=== PATIENT | male | born 1950 | race Caucasian/White ===

== ENCOUNTER 2024-04-05 08:23 | Observation (INO) ==
--- NOTE | 2024-04-05 11:58 | History & Physical Bridge Note ---
Date of Service April 05, 2024 History & Physical Bridge Note I have examined the patient, reviewed the History & Physical and in the interval since the performance of the History & Physical I have noted the following changes of clinical significance: no changes noted
--- NOTE | 2024-04-05 11:58 | Pre Anesthesia Assessment ---
Date of Service April 05, 2024 Pre Sedation Assessment Vital Signs Pulse Resp BP Pulse Ox O2 Del Method 04/05/24 08:29 76 18 179/88 H 95 Room Air Cardiovascular + regular rate and + regular rhythm + S1 normal and + S2 normal; no murmur + femoral pulses present and + radial pulses present; no JVD and no carotid bruit no edema Respiratory + respiratory effort normal; no respiratory distress + crackles; no rhonchi and no wheezes Pre-Sedation Airway Assessment Smoking Status: Never smoker Short, Thick Neck: No Thyromental Distance: > or= 3.5 Finger Breadths Oral Cavity: + Dental Abnormalities Mallampati Class: III ASA: ASA3 NPO Status Date of Last Intake of Fluids: 04/04/24 Time of Last Intake of Fluids: 20:30 Date of Last Intake of Solid Food: 04/04/24 Time of Last Intake of Solid Foods: 20:30 Procedure Planning Contraindications for Sedation: none Current Medications Reviewed: Yes Notes The planned sedation has been discussed with the patient. Informed Consent was obtained. I have identified the patient, determined the appropriateness of sedation and have assessed the patient immediately prior to the procedure. All medicine(s) and interventions are by my order.
[2024-04-05 12:41] LABS: iSTAT Arterial Blood Gas HCO3 28 meg/L (19-24); iSTAT Arterial Blood Gas pCO2 53 mmHg (35-46); iSTAT Arterial Blood Gas pH 7.33 (7.35-7.45); iSTAT Arterial Blood Gas pO2 44 mmHg (80-95); iSTAT Carbon Dioxide 30 mmol/L (24-31); iSTAT Hematocrit 38 % (42-52); iSTAT Hemoglobin 12.9 g/dl (14.0-18.0); iSTAT Potassium 4.1 mmol/L (3.3-5.0); iSTAT Sodium 142 mmol/L (135-144)
[2024-04-05] MEDS: fentaNYL citrate PF 100 MCG/2 ML VIAL ONE (13:43)
[2024-04-05] MEDS: MIDAZOLAM HCL 1 MG/ML 2ML VIAL ONE ×3 (13:43→13:45)
[2024-04-05] MEDS: HEPARIN (PORCINE) 1000 UNIT/ML 10 ML (CATH LAB USE ONLY) ONE (13:43)
[2024-04-05] MEDS: IODIXANOL (VISIPAQUE) 320 MG/ML 100ML IV ONE (13:44)
[2024-04-05] MEDS: niCARdipine HCL INJ 2.5 MG/ML 10 ML AMP ONE (13:44)
[2024-04-05] MEDS: OPTIRAY 350 ONE (13:44)
[2024-04-05] MEDS: NITROGLYCERIN/D5W 100MCG/ML 20ML SYR ONE (13:45)
[2024-04-05] MEDS: LIDOCAINE 1% LOCAL 20 ML VIAL ONE (13:45)
[2024-04-05] MEDS: CLOPIDOGREL BISULFATE 300 MG TAB ONE (13:45)
[2024-04-05 14:01] LABS: iSTAT Arterial Blood Gas HCO3 27 meg/L (19-24); iSTAT Arterial Blood Gas pCO2 48 mmHg (35-46); iSTAT Arterial Blood Gas pH 7.35 (7.35-7.45); iSTAT Arterial Blood Gas pO2 146 mmHg (80-95); iSTAT Carbon Dioxide 28 mmol/L (24-31); iSTAT Hematocrit 38 % (42-52); iSTAT Hemoglobin 12.9 g/dl (14.0-18.0); iSTAT Potassium 4.1 mmol/L (3.3-5.0); iSTAT Sodium 141 mmol/L (135-144)
--- NOTE | 2024-04-05 14:01 | Post Anesthesia Assessment ---
Date of Service April 05, 2024 Post Sedation Assessment Vital Signs Pulse Resp BP Pulse Ox O2 Del Method 04/05/24 08:29 76 18 179/88 H 95 Room Air Recovery Score Activity: Moves 4 extremities Respiration: Deep Breath/Cough Circulation: +/-20% PreAnes Value Consciousness: Fully Awake Oxygen Saturation: O2 needed for >90% Discharge Sedation Level of Care: Fast Track Phase II Post Sedation Plan On clinical assessment, the patient appears to have tolerated the sedation without complications. Patient is recovering as anticipated. Patient will continue to be monitored by nursing and may be discharged when se dation discharge criteria are met per below protocol. Upon Completions of procedure up to 15 minutes continue every 5 minute vital signs and the P.A.R. score; then discharge to a Phase I or Fast Track to Phase II per the following guidelines: * Discharge Patient to appropriate Phase II area if PAR is 8 or greater or return to pre- procedure baseline. The post - procedure orders will be as directed. * If PAR score is less than 8 or not return to pre-procedure baseline then patient will follow Phase I monitoring till PAR is reached for Phase II. The Phase I may be done in procedure room or may call to secure a Phase I area. * If naloxone or flumazenil are used for reversal, hold in Phase I for continued monitoring from when last reversal dose was given for a minimum of 60 minutes or longer pending the nurse and/or physician discretion of patient condition before discharge to Phase II. Please call the Sedation Physician to re-evaluate and complete post-note for discharge to Phase II area. Do NOT discharge from procedure sedation or Phase 1 until post- sedation evaluation note is complete by procedure /sedation MD Sedation Discharge Instructions to be given to the patient at discharge to home.
[2024-04-05] MEDS ORDERED: ONDANSETRON INJ 2 MG/ML 2 ML VIAL IV PRN (14:14)
--- NOTE | 2024-04-05 14:18 | Cardiac Catheterization ---
Cardiac Cath Procedure Full Procedure Date April 05, 2024 Pre-Procedure Diagnosis Pre-Procedure Diagnosis: Angina and Positive Stress Test AUC Score AUC Score: 7 Post-Procedure Diagnosis Post-Procedure Diagnosis: Severe CAD and Normal Intracardiac Pressures Procedure(s) Performed Procedure(s) Performed: Coronary Angiography, Left Heart Cath and Right Heart Cath Inbound Call Center Representative Nolberto Monroe DO [facility]) Alondra RT Estimated Blood Loss Estimated Blood Loss: 8cc Medication(s) Medication(s): Fentanyl, Lidocaine 1% and Versed Summary of Findings Severe LAD disease with 75% proximal stenosis, 80% early mid stenosis, followed by and 90% mid stenosis. No evidence of pulmonary hypertension. PA Sat 75% AO Sat 99% QP/QS: 1.0 Hemodynamics Rest Ao:: 142/68/95 Final Ao: 128/67/88 LV: 141/1/10 RA: 3 mmHg RV: 26//-2/2 PA: 25/5/12 PW: 3 mmHg Recommendations Recommendations: PCI without planned CABG Specimens Specimens: None Radiation Exposure (mGy) 438 Contrast (mls) 70 Fluids (cc crystalloids) Fluids (cc crystalloids): 136 Nss Drains Drains: N/A Anesthesia Moderate sedation. Start 1204. And 1251. Sedation monitor: sAhley PICKERING Procedural Complication(s) None Disposition Patient remained in [facility] for PCI of the LAD. I attest to the content of the Intraoperative Record and any orders documented therein. Any exceptions are noted below. ACC Data: [facility] Cardiac Status Clinical evaluation leading to the procedure 73-year-old male with progressive dyspnea on exertion and decline in exercise tolerance. Abnormal exercise stress echo suggesting ischemia. CAD Presenation: Positive Stress Test and Stable angina Anginal Classification: CCS III Heart Failure: No Coronary Anatomy Dominant: Right Left Main (% Stenosis): Mid (Focal calcification with associated 20% stenosis.) LAD (% Stenosis): Proximal (75%) and Mid (80% followed by 90%) D1 (% Stenosis): Normal (1mm vessel) Circumflex (% Stenosis): Normal OM1 (% Stenosis): Mid (20%, large vessel) RCA (% Stenosis): Proximal (20%), Mid (Diffuse luminal irregularities,20%) and Distal (Luminal irregularities, 10%) R PDA (% Stenosis): Normal R PL1 (% Stenosis): Normal (Small vessel) R PL2 (% Stenosis): Normal (Small vessel) Diagnostic Physicians Name: Nolberto Monroe DO Closure Device Percutaneous Entry Location: Femoral (Arterial access, Brachial access utilized for venous sheath and right heart cath.) Closure Device: Angio-Seal Recommendations: PCI without planned CABG Intraprocedure Events Significant Disection: No Perforation: No
--- OUTSIDE RECORDS SUMMARY | 2024-04-05 14:38 | External Medical Summary ---
Author Name Unknown Address Unknown Organization [id number] [address] [place] [address] Laboratory Report Ordering Provider Test Date Status JOVANA ALMENDAREZ 03/31/2024 12:45:17 Final Anticoagulation may affect t esting. Refer to [facility] Test Catalog for a list of effects. Observation Date Value Abnormality Reference (Units ) Status aPTT panel - Platelet poor plasma 03/31/2024 12:45:17 31 21-38 (seconds) Final Performing Location [facility] [place] [address] [place] [address]
--- OUTSIDE RECORDS SUMMARY | 2024-04-05 14:38 | External Medical Summary | Summary of Care ---
Author Name Unknown Organization [facility] Address [address] [place] [facility] [place] [address] Phone [phone] Care Team Providers Care Upper Extremity Surgeon Name Role Phone Sakina Lares DO Primary Care Provider [phone] Reason for Visit * Reason Onset Date Comments Test Results 03/30/2024 Encounter Details Date Type Department Care Team (Late st Contact Info) Description 03/30/2024 Telephone Cardiology, [facility] [address] [place] [address] Virgil Mixon PA-C [address] [place] [address] Test Results Allergies No known active allergiesdocumented as of this encounter (statuses as of 03/30/2024) Medications Medication Sig Dispensed Refills Start Date End Date Status Melatonin 5 MG Oral Tablet Take 1 Tablet by mouth at bedtime. Active Aspirin 81 MG Oral Tablet Delayed Release Take 1 Tablet by mouth in the morning. 03/04/2023 Active Tylenol PM Extra Strength 500-25 MG Oral Tablet (diphenhydrAMINE-A PAP (sleep)) Take 1 Tablet by mouth at bedtime. Active Tamsulosin HCl 0.4 MG Oral Capsule (Flomax) Take 1 Capsule by mouth in the morning. 100 Capsule 3 05/11/2023 Active Additional Information Patient taking differently:0.4 mg [id number], Reported on 07/08/2023 Sertraline HCl 50 MG Oral Tablet (Zoloft) TAKE ONE TABLET BY MOUTH EVERY MORNING 100 Tablet 3 05/12/2023 06/18/2024 Active hydrOXYzine Pamoate 50 MG Oral Capsule (Vistaril) Take 1 Capsule by mouth at bedtime as needed for Anxiety or Other (sleep). 30 Capsule 3 07/08/2023 Active Omeprazole 20 MG Oral Capsule Delayed Release (PriLOSEC)Indicati ons:Gastroesophage al reflux disease without esophagitis Take 1 Capsule by mouth in the morning. 1 hour before the first meal of the day. 08/05/2023 Active Rosuvastatin Calcium 40 MG Oral Tablet (Crestor) Take 1 Tablet by mouth in the morning. 90 Tablet 3 08/04/2023 Active Ezetimibe 10 MG Oral Tablet (Zetia) Take 1 Tablet by mouth daily. 100 Tablet 3 11/09/2023 Active Additional Information Patient taking differently:10 mg Oral Daily(Non-Specified),Takes in the evening., Reported on 02/29/2024 documented as of this encounter (statuses as of 03/30/2024) Active Problems Problem Noted Date Diagnosed Date Coronary artery calcification seen on CT scan SVT (supraventricular tachycardia) 10/28/2023 Chronic kidney disease, stage 3a 03/23/2023 Overview: Per CKD protocol Hx of nonmelanoma skin cancer 12/11/2022 Overview: squamous cell carcinoma (R medial trapezial neck 08/03), basal cell carcinoma (L upper cheek 05/28) H/O actinic keratosis 12/11/2022 Overview: actinic keratoses (Efudex-multiple courses, scalp/face/neck 01/02, left arm 08/05, right arm 10/03) Gastroesophageal reflux disease without esophagi tis 10/07/2022 Dyslipidemia 04/08/2022 BPH with obstruction/lower urinary tract symptom s 04/08/2022 Insomnia 04/08/2022 documented as of this encounter (statuses as of 03/30/2024) Resolved Problems Problem Noted Date Diagnosed Date Resolved Date Stage 3 chronic kidney disease 07/08/2023 07/23/2023 documented as of this encounter (statuses as of 03/30/2024) Immunizations Name Administration Dates Next Due COVID-19 mRNA, LNP-s, No Pre serve, 2-Dose Series (Moderna) 08/28/2020,07/31/2020 COVID-19, MRNA-LNP, 23-24, P F, 30 MCG/0.3 mL, 12 YRS AND ABOVE, IM (Written) 05/04/2023 COVID-19, MRNA-LNP, 24-25, P R, 30MCG/0.3ML, IM, 12YRS AND ABOVE ([employer]) 03/24/2024 COVID-19, mRNA, LNP-s, PF, B ooster, 100mcg/0.5mg (Moderna) 10/22/2021,05/26/2021 Covid-19, Mrna, Lnp-s, Pf, B ivalent, 30 Mcg, IM, 12 yrs and above (imgfave) 04/22/2022 HEP A - Hepatitis A (Adult > 18 yrs) 09/07/2008, 01/05/2008 Hepatitis B, 20+ yrs 01/05/2008,09/09/2007 Pneumococcal Conjugate Vacc, 13 Valent (Prevnar) 04/09/2016 Pneumococcal Conjugate Vaccine, 20-valent (Prevn ar20) 03/24/2024 Pneumococcal Polysaccharide PPV23 (Pneumovax) RSV Vac., Bivalent, Perfusion F, Pf,0.5 Ml (Abry svo) 02/29/2024 Season Influenza, Quad, PF, Adjuvanted, 65+ Yrs, IM (FLUAD) 05/30/2021,03/30/2020 Seasonal Influenza Virus Vac cine, Unspecified Formulation 04/07/2022 Seasonal Influenza, High Dos e, Trivalent, PF, IM (Fluzone HD) 03/24/2024 Seasonal Influenza, Quadrivalent Hd (Fluzone Hd) 03/13/2023,04/07/2022 Seasonal Influenza, Quadrivalent, No Preserve, I M 04/08/2018,04/20/2017 Seasonal Influenza, Quadriva lent,with Preserve, 3 yr & above, IM 04/09/2016 TDAP (age 10 and older)(Boostrix) 04/09/2016 TDAP, Age 7 and older, IM (Adacel) 02/07/2024 documented as of this encounter Social History Tobacco Use Types Packs/Day Years Used Date Smoking Tobacco: Never Passive Smoke Exposure: Past Smokeless Tobacco: Never Comments:Mother smoked in ho me growing up Alcohol Use Standard Drinks/Week Comments Yes 0 (1 standard drink = 0.6 oz pur e alcohol) 3 or 4 glasses of wine weekly PHQ-2 Answer Date Recorded PHQ Adult Total Score 0 08/04/2023 Hunger Vital Sign Answer Date Recorded Within the past 12 months, y ou worried that your food would run out before you got the money to buy more. Never true 08/04/19 24 Within the past 12 months, t he food you bought just didn't last and you didn't have money to get more. Never true 08/04/2023 Childcare Answer Date Recorded Do you feel overwhelmed with taking care of a child, family member or friend? No 08/04/2023 Does your family need help f inding childcare? (Household - for ages 0-17 years) Not on file 08/04/2023 Clothing Answer Date Recorded Have you been unable to get clothing when it was really needed? No 08/04/2023 Is your family able to get c lothes or diapers when needed? (Household - for ages 0-17 years) Not on file 08/04/2023 Personal Safety Answer Date Recorded Do you feel unsafe or have concerns for your saf ety? No 08/04/2023 Do you have concerns for you r family's safety? (Household - for ages 0-17 years) Not on file 08/04/2023 Utilities Answer Date Recorded Do you have trouble paying y our heating, water, or electric bill? No 08/04/2023 Is your family able to pay t he heat, water, or electric bill? (Household - for ages 0-17 years) Not on file 08/04/2023 Does your family have access to good internet? (Household - for ages 0-17 years) Not on file 08/04/2023 Employment Status Answer Date Recorded Are you unemployed or without regular income? No 08/04/2023 Does the household have a re gular source of income? (Household - for ages 0-17 years) Not on file 08/04/2023 Social Connections Answer Date Recorded How often do you feel lonely or isolated from th ose around you? Never 08/04/2023 Financial Resource Strain Answer Date R ecorded Do you have any trouble payi ng for your medications, or do you think you might in the future? No 08/04/2023 Does your family have troubl e paying for medicine? (Household - for ages 0-17 years) Not on file 08/04/2023 Transportation Needs Answer Date Record ed READ ONLY Do you have troubl e getting a ride to medical visits or work? Never True 08/04/2023 Does your family have a hard time getting a ride to doctors visits? (Household - for ages 0-17 years) Not on file 08/04/2023 Has lack of transportation k ept you from medical appointments, meetings, work, or from getting things needed for daily living? Check all that apply. (Adult - for ages 18 years and over) Not on file 08/04/2023 Do you (or your family) have trouble finding or paying for a ride (transportation)? (Household - for ages 0-17 years) Not on file 08/04/2023 Housing Stability Answer Date Recorded Do you currently live in a s helter or have no steady place to sleep at night? No 08/04/2023 READ ONLY Do you think you a re at risk of becoming homeless? No 08/04/2023 Does your family worry about paying for your home or becoming homeless? (Household - for ages 0-17 years) Not on file 0 08/04/2023 Are you homeless or worried that you might be in the future? (Adult - for ages 18 years and over) Not on file Are you (or your family) carisa eless or worried that you might be in the future? (Household - for ages 0-17 years) Not on file Food Insecurity Answer Date Recorded Do you need food for this week? No 08/04/2023 Are you able to get enough f ood for your family? (Household - for ages 0-17 years) Not on file 08/04/2023 Does your family need food t his week? (Household - for ages 0-17 years) Not on file 08/04/2023 Do you always have enough fo od for your family? (Household - for ages 0-17 years) Not on file 08/04/2023 Sex and Gender Information Value Date Recorded Sex Assigned at Male 04/07/2022 8:11 AM EDT Gender Identity Male 04/07/2022 8:11 AM EDT Sexual Orientation Straight 04/07/2022 8: 11 AM EDT Job Start Date Occupation Industry Not on file Not on file Not on file documented as of this encounter Miscellaneous Notes * Telephone Encounter - Ej Al LPN - 03/30/2024 11:23 AM EDT Please see patient's MyChart reply. * Telephone Encounter - Ej Al LPN - 03/30/2024 9:47 AM EDT Sent patient a [employer] message to make aware. Lab ordered. ----- Message from Virgil Mixon sent at 03/28/2024 8:36 PM EDT ----- aPTT is prolonged. Not on anticoagulation. All other testing is OK/stable. Any bruising, abnormal bleeding, or blood clot history? Repeat aPTT. If repeat testing is abnormal will need further evaluation CC: PCP documented in this encounter Plan of Treatment Upcoming Encounters Date Type Department Care Team (Late st Contact Info) Description 03/31/2024 11:30 AM EDT Office Visit Cardiology, [facility] [address] [address] Virgil Mixon PA-C [address] [place] [address] 04/06/2024 8:00 AM EDT Office Visit Urology, [facility] [address] [address] Se Alatorre MD [address] [place] [address] 04/07/2024 8:00 AM EDT [facility] [address] [place] [phone] Chuy Arteaga MD [address] [place] [address] 04/14/2024 8:00 AM EDT [facility] [address] [place] [phone] Chuy Arteaga MD [address] [place] [address] 04/29/2024 9:00 AM EDT Office Visit Cardiology, [facility] [address] [facility] [place] [address] Virgil Mixon PA-C [address] [place] [address] 06/15/2024 2:40 PM EST Office Visit Gastroenterology, [address] [phone] Oscar [facility] [address] 07/26/2024 8:40 AM EST Office Visit Family Practice [address] [place] [address] 293 [place] [address] Sakina Lares DO 293 [place] [address] 08/05/2024 10:00 AM EST Nurse Only Ancillary [address] [facility] [address] [place] [address] College, Nurse Annual Wellness Visit [address] [place] [address], [place] [address] 09/21/2024 7:40 AM EDT Office Visit Dermatology [facility] [address] [place] [address] Jez Pretty PA-C [address] [place] [address] Scheduled Orders Name Type Priority Associated Diagnoses Orde r Schedule APTT Lab Routine Prothrombin time monitoring Expected: 03/30/2024 (Approximate), Expires: 03/30/2025 Health Maintenance Due Date Last Done Comments Hepatitis C Screening 1968 Hepatitis B Vaccine (3 of 3 - 19+ 3-dose series) 03/09/2008 01/05/2008, 09/09/2007 Albumin/Creatinine Ratio 07/08/2024 07/08/2023 CKD PHOS USE SMARTSET 56639 07/24/2024 07/24/2023 Adult Wellness Visit 08/04/2024 08/04/2023 Depression Screening 08/04/2024 08/04/2023 GFR 09/25/2024 03/28/2024, 04/2 10/2023, 07/24/2023, Additional history exists CKD HGB USE SMARTSET 98601 03/28/202503/28, 03/28/2024, 07/24/2023, Additional history exists DTap/Tdap Vaccines (3 - Td or Tdap) 02/06/2034 02/07/2024, 04/09/2016 Colonoscopy Discontinued 12/03/2016 Colorectal Cancer Screening Discontinued COVID-19 Vaccine Completed 03/24/2024, , 04/22/2022, Additional history exists Influenza Vaccine (FLU shot) Completed 03/24/2024, 03/13/2023, 04/07/2022, Additional history exists Pneumococcal Vaccine: 65+ Years Completed 03/24/2024, 04/08/2018, 04/09/2016 Cologuard Discontinued Fecal Occult Blood Test Discontinued HPV (Gardasil) Vaccine Aged Out No lo nger eligible based on patient's age to complete this topic MENINGOCOCCAL (MENACTRA/MENVEO) Aged Out No longer eligible based on patient's age to complete this topic Sigmoidoscopy Discontinued Zoster Vaccines Discontinued documented as of this encounter Medical Devices Not on filedocumented as of this encounter Visit Diagnoses Diagnosis Prothrombin time monitoring- Primary Long-term (current) use of anticoagulants documented in this encounter Care Teams Upper Extremity Surgeon Relationship Specialty Start Date End Date Sakina Lares DO [address] [facility] [place] [address] PCP - General Family Medicine 02/26/24 documented as of this encounter
--- OUTSIDE RECORDS SUMMARY | 2024-04-05 14:38 | External Medical Summary | Summary of Care ---
Author Name Unknown Organization [facility] Address [address] [place] [address] Phone [phone] Care Team Providers Care Collection Agent Name Role Phone NataliMirella fritzbirdie Valdes DO Primary Care Provider [phone] Reason for Visit * Reason Comments Outpatient Testing Encounter Details Date Type Department Care Team (Late st Contact Info) Description 03/31/2024 12:50 PM EDT Laboratory Laboratory, [facility] [address] [place] [phone] [facility] [address] [place] [address] Prothrombin time monitoring Allergies No known active allergiesdocumented as of this encounter (statuses as of 03/31/2024) Medications Medication Sig Dispensed Refills Start Date [...] Active Additional Information Patient taking differently:0.4 mg [id number], Reported on 07/08/2023 Sertraline HCl 50 MG [...] as of this encounter (statuses as of 03/31/2024) Active Problems Problem Noted Date Diagnosed Date [...] as of this encounter (statuses as of 03/31/2024) Resolved Problems Problem Noted Date Diagnosed Date Resolved Date Stage 3 chronic kidney disease 07/08/2023 07/23/2023 documented as of this encounter (statuses as of 03/31/2024) Immunizations Name Administration Dates Next Due COVID-19 mRNA, LNP-s, No Pre serve, 2-Dose Series (Moderna) 08/28/2020,07/31/2020 COVID-19, MRNA-LNP, 23-24, P F, 30 MCG/0.3 mL, 12 YRS AND ABOVE, IM ([facility]) 05/04/2023 COVID-19, MRNA-LNP, 24-25, P R, 30MCG/0.3ML, IM, 12YRS AND ABOVE ([employer]) 03/24/2024 COVID-19, mRNA, LNP-s, PF, B ooster, 100mcg/0.5mg (Moderna) 10/22/2021,05/26/2021 Covid-19, Mrna, Lnp-s, Pf, B ivalent, 30 Mcg, IM, 12 yrs and above (Pfizer) 04/22/2022 HEP A - Hepatitis A (Adult [...] on file documented as of this encounter Plan of Treatment Upcoming Encounters Date Type Department Care Team (Late st Contact Info) Description 04/06/2024 8:00 AM EDT Office Visit [facility] [place] [address] Se Alatorre MD [address] [place], [place] [phone] 04/07/2024 8:00 AM EDT Office Visit Orthopaedics [address] [phone] Chuy Arteaga MD 16 [place] [address] 04/14/2024 8:00 AM EDT [facility] [address] [place] [address] Chuy Arteaga MD 16 [place] [address] 04/29/2024 9:00 AM EDT Office Visit Cardiology, [facility] [address] [place] [address] Virgil Mixon PA-C 132 [facility] [place] [address] 06/15/2024 2:40 PM EST Office Visit Gastroenterology, [address] [phone] Oscar Shannon MD 132 [facility] [place] [address] 07/26/2024 8:40 AM EST Office Visit Family Practice [facility] 293 [place] [address] Sakina Lares, DO 293 [place] [address] 08/05/2024 10:00 AM EST Nurse Only Ancillary [facility] 293 [place] [address] College, Nurse Annual Wellness Visit [address] [address] 09/21/2024 7:40 AM EDT Office Visit Dermatology [facility] [address] [place] [phone] Jez Pretty PA-C [address] [place] [address] Pending Results Name Type Priority Associated Diagnoses Date /Time APTT Lab Routine Prothrombin time monitoring 03/31/2024 12:45 PM EDT Health Maintenance Due Date Last Done Comments Hepatitis C Screening 1968 Hepatitis B Vaccine (3 of 3 - 19+ 3-dose series) 03/09/2008 01/05/2008, 09/09/2007 Albumin/Creatinine Ratio 07/08/2024 07/08/2023 CKD PHOS USE SMARTSET [id number] 07/24/2024 07/24/2023 Adult Wellness Visit 08/04/2024 08/04/2023 Depression Screening 08/04/2024 08/04/2023 GFR 09/25/2024 03/28/2024, 04/2 10/2023, 07/24/2023, Additional history exists CKD HGB USE SMARTSET 32213 03/28/202503/28, 03/28/2024, 07/24/2023, Additional history exists DTap/Tdap [...] this encounter Visit Diagnoses Diagnosis Prothrombin time monitoring Long-term (current) use of anticoagulants documented in this encounter Care Teams Collection Agent Relationship Specialty Start Date End Date Sakina Lares DO [address] [place] [address] PCP - General Family Medicine 02/26/24 documented as of this encounter
--- OUTSIDE RECORDS SUMMARY | 2024-04-05 14:38 | External Medical Summary | Summary of Care ---
Author Name Unknown Organization [facility] Address [address] [facility] [place] [address] Phone [phone] Care Team Providers Care Hammer Operator Name Role Phone Sakina Lares DO Primary Care Provider + [phone] Reason for Visit * Reason Comments Follow Up Encounter Details Date Type Department Care Team (Latest Contact Info) Description 03/31/2024 11:30 AM EDT Office Visit Cardiology, [facility] [address] [place] [address] Virgil Mixon PA-C [address] [place] [address] Abnormal stress test*; Abnormal partial thromboplastin time (PTT); Dyspnea on exertion; Exercise intolerance; Dyslipidemia, goal LDL below 70; Abnormal LFTs; SVT (supraventricular tachycardia) (HCC); Coronary artery calcification seen on CT scan; Family history of ischemic heart disease Allergies No known active allergiesdocumented as of [...] Active Additional Information Patient taking differently:0.4 mg [id number], Reported on 07/08/2023 Sertraline HCl 50 MG [...] MCG/0.3 mL, 12 YRS AND ABOVE, IM ([employer]) 05/04/2023 COVID-19, MRNA-LNP, 24-25, P R, 30MCG/0.3ML, IM, 12YRS AND ABOVE (6sic[employer].itirCooliris) 03/24/2024 COVID-19, mRNA, LNP-s, PF, B ooster, 100mcg/0.5mg (Moderna) 10/22/2021,05/26/2021 Covid-19, Mrna, Lnp-s, Pf, B ivalent, 30 Mcg, IM, 12 yrs and above ([employer]) 04/22/2022 HEP A - Hepatitis A (Adult [...] Passive Smoke Exposure: Past Smokeless Tobacco: Never Tobacco Cessation:Counseling Given: Not Answered Comments:Mother smoked in home growing up Alcohol Use Standard Drinks/Week Comments [...] on file documented as of this encounter Last Filed Vital Signs Vital Sign Reading Time Taken Comments Blood Pressure 118/68 03/31/2024 11:39 AM EDT Pulse 74 03/31/2024 11:39 AM EDT Temperature - - Respiratory Rate - - Oxygen Saturation 91% 03/31/2024 11:39 AM EDT Inhaled Oxygen Concentration - - Weight 78.9 kg (174 lb) 03/31/2024 11:39 AM EDT Height - - Body Mass Index 25.33 02/29/2024 9:16 AM EDT documented in this encounter Progress Notes * Virgil Mixon PA-C - 03/31/2024 11:47 AM EDT History of Present Illness: Robert Love is a very pleasant 73-year-old male who presents today for Cardiology evaluation. Patient initially evaluated in this office by Ms. Stratton in February 2023 due to concerns regarding hypoxia and dizziness. Patient evaluated at [facility] in [place] on 02/25/2023 due to concerns of hypoxia and dizziness after riding his bike downhill. O2 checked by skiver machine - 84%. Heart rate elevated. Symptoms quickly resolved in a matter of seconds, spontaneously. Zio monitor obtained afterwards revealed sinus as the predominant rhythm with an average heart rate of 71 bpm. 14 episodes of SVT were observed, asymptomatic. No atrial fibrillation, ventricular arrhythmias, high-degree heart block, or pauses observed. He did not experienced anything like when he did in [place] while weari ng the Zio monitor In October 2023 the patient began to noticed worsening shortness of breath with activity, gradual reduction in exercise tolerance and overall functional status. He describes more episodes of dizziness with random movement primarily occurring with positional change. He notes no activity related chest pain or discomfort. No tachypalpitations. No resting or nocturnal dyspnea. No orthopnea or PND. No lower extremity peripheral edema. No syncope. No melena or hematochezia. Donates blood. In February 2024 the patient underwent exercise stress echocardiography to evaluate exertional dyspnea. Prior imaging of the chest notable for extensive coronary artery calcifications. Patient also hasa history of dyslipidemia, past secondhand smoke exposure, and a family history of ischemic heart disease. Stress testing was interpreted by Dr. Johnson as being borderline positive for inducible ischemia at an average exercise capacity. There was mild hypokinesis of the apical septum and inferior wall induced by exercise in comparison to other segments which were hyperdynamic. Heart rate response to stress was normal. Blood pressure was hypertensive. Resting echocardiography revealed preserved LV systolic function, EF 55 to 59%. Grade 1 diastolic dysfunction observed. Laboratory work in February 2024 demonstrated mildly abnormal LFTs following the addition of ezetimibe. Right upper quadrant ultrasound revealed an abnormally distended common duct for which the patient was referred to GI, consideration for MRCP Problem List Extensive calcified coronary arteries via March 05, [address] Asymptomatic SVT PVCs Dyslipidemia Secondhand smoke exposure Family history of ischemic heart disease Stage III chronic kidney disease GERD BPH Patient Active Problem List Diagnosis Dyslipidemia BPH with obstruction/lower urinary tract symptoms Insomnia Gastroesophageal reflux disease without esophagitis Hx of nonmelanoma skin cancer H/O actinic keratosis Chronic kidney disease, stage 3a (HCC) Coronary artery calcification seen on CT scan SVT (supraventricular tachycardia) (HCC) Past Medical History: Diagnosis Date BPH (benign prostatic hyperplasia) Hyperlipidemia Insomnia Lyme disease Shoulder arthritis bilaterally SVT (supraventricular tachycardia) (HCC) Past Surgical History: Procedure Laterality Date EGD, FLEXIBLE, DIAGNOSTIC 11/10/2022 acid reflux on bx / ESOPHAGOGASTRODUODENOSCOPY (EGD), FLEXIBLE, TRANSORAL, DIAGNOSTIC performed by Oscar Shannon MD at [facility], TREAT ANKLE JOINT Left repair of fracture KNEE ARTHROSCOPY/ARTHROPLASTY Right LAP;REPAIR RECURRENT HERNIA two OTHER Bilateral eye surgery on muscles bilaterally WRIST ARTHROSCOPY/SURGERY Right Family History Problem Relation Name Age of Onset Cancer Mother 78 Lung Other (Other) Father Alcoholism Heart attack Father 80 Parkinsonism Brother Family History coronary artery disease, father at age 80 , uncle in 50s, 1 uncle in the 70s. Sibling from Parkinson's at age 71. Mother had lung cancer and at age 78. Social History: Never smoker though exposed to secondhand smoke. No smokeless tobacco. Social alcohol. No illegal/illicit drug use. . Complete Review of Systems is as stated above, negative, or noncontributory. Review of patient's allergies indicates: No Known Allergies Current Outpatient Medications Medication Sig Dispense Refill Melatonin 5 MG Oral Tablet Take 1 Tablet by mouth at bedtime. Aspirin 81 MG Oral Tablet Delayed Release Take 1 Tablet by mouth in the morning. Tylenol PM Extra Strength 500-25 MG Oral Tablet (diphenhydrAMINE-APAP (sleep)) Take 1 Tablet by mouth at bedtime. Tamsulosin HCl 0.4 MG Oral Capsule (Flomax) Take 1 Capsule by mouth in the morning. (Patient takingdifferently: Take 1 Capsule by mouth every evening.) 100 Capsule 3 Sertraline HCl 50 MG Oral Tablet (Zoloft) TAKE ONE TABLET BY MOUTH EVERY MORNING 100 Tablet 3 hydrOXYzine Pamoate 50 MG Oral Capsule (Vistaril) Take 1 Capsule by mouth at bedtime as needed for Anxiety or Other (sleep). 30 Capsule 3 Omeprazole 20 MG Oral Capsule Delayed Release (PriLOSEC) Take 1 Capsule by mouth in the morning. 1 hour before the first meal of the day. Rosuvastatin Calcium 40 MG Oral Tablet (Crestor) Take 1 Tablet by mouth in the morning. 90 Tablet 3 Ezetimibe 10 MG Oral Tablet (Zetia) Take 1 Tablet by mouth daily. (Patient taking differently: Take1 Tablet by mouth daily. Takes in the evening.) 100 Tablet 3 No current facility-administered medications for this visit. PHYSICAL EXAMINATION: BP 118/68 | Pulse 74 | Wt 78.9 kg (174 lb) | SpO2 91% | BMI 25.33 kg/m | BSA 1.97 m General: Alert and oriented x3. Pleasant. Comfortable. Cooperative. Occasional clearing of the throat noted. Skin: No rash Eyes: PER. Conjunctiva pink, sclera clear. HENT: Normocephalic. Atraumatic. Neck: No carotid bruits. No JVD. No HJR. Heart: RRR. No murmur. No rub. No gallop. PMI is nondisplaced. Lungs: Decreased/diminished, more so at the right base. There are Velcro type crackles at the bases, right greater than left. No wheeze. Abdomen: +BS. Soft. Nontender. No masses. No organomegaly. Extremities: No clubbing, cyanosis, or edema. Pulses: radial=2/4, posterior tibial=2/4. Limited neurological examination: No focal deficit. Data: March 05, [address]: Bibasilar atelectasis/fibrosis. March 11, 2023 ALEXANDRA Interpretation Summary (as per Dr. Guan): The stress echo is negative for inducible ischemia. Adequate cardiovascular stress test as patient obtained 105 percent of their age predicted maximal target heart rate. Patient exercised for 10 minutes of the [place] protocol with a functional capacity of 9.0 Mets. No significant arrhythmias were noted. Normal blood pressure and heart rate response to exercise. Patient denied chest discomfort reporting dyspnea at peak exercise.The qualitative LV ejection fraction is 55- 59% (normal). The LV wall thickness is normal. There is no significant aortic regurgitation. No pericardial effusion is noted. Zio monitor obtained in [place] revealed sinus as the predominant rhythm with an average heart rate of 71 bpm. 14 episodes of SVT were observed with the longest lasting ? 13 seconds in duration, not associated with symptoms. No atrial fibrillation, ventricular arrhythmias, high-degree heart block, orpauses observed. March 01, 2024 ALEXANDRA Interpretation Summary (as per Dr. Johnson): The stress echo is borderline positive for inducible ischemia. Exercise capacity is average. Heart rate response to stress was normal. Blood pressure response to exercise was hypertensive. The stress EKG response showed no evidence of ischemia. The left ventricular wall motion is normal. There is mild hypokinesis of the apical septum and inferior wall induced by exercise in comparison to other segments all of which were hyperdynamic. The left ventricular ejection fraction increases normally with stress. Recommend clinical correlation. The left ventricular systolic function is normal. The LV wall thickness is mildly increased (con centric). The qualitative LV ejection fraction is 55-59% (normal). The left ventricular diastolic function is mildly abnormal (grade I). March 31, 2024 EKG: Normal sinus rhythm at 66 bpm. QTc 404 ms. Component 03/28/2024 WBC 4.96 Neutrophils % 66.6 Lymphocytes % 18.3 Monocytes % 8.7 Eosinophils % 5.4 Basophils % 0.8 Immature Granulocytes % 0.2 Absolute Neutrophils 3.30 Absolute Lymphocytes 0.91 (L) Absolute Monocytes 0.43 Absolute Eosinophils 0.27 Absolute Basophils 0.04 Absolute Immature Granulocytes 0.01 WBC 4.96 RBC 4.59 HGB 13.7 (L) HCT 42.9 MCV 93.5 MCH 29.8 MCHC 31.9 RDW 14.7 PLT 145 MPV 11.3 nRBCs 0 BUN 21 (H) CREATININE 1.3 (H) EGFR 59 (L) SODIUM 141 POTASSIUM 4.7 CHLORIDE 106 CO2 16 (L) ANION GAP 19 (H) GLUCOSE 89 CALCIUM 9.1 Prothrombin Time 13.1 INR 1.0 aPTT 70 (H) ASSESSMENT: Progressive exertional dyspnea and reduced exercise tolerance complaints as detailed above Borderline abnormal exercise stress testing in February 2024 Extensive calcified coronary arteries via March 05, [address] Dyslipidemia Family history of ischemic heart disease Past secondhand smoke exposure Asymptomatic SVT PVCs Stage III chronic kidney disease Mildly abnormal LFTs following the addition of ezetimibe. Right upper quadrant ultrasound with an abnormally distended common duct, GI evaluation pending Prolonged aPTT, unclear etiology RECOMMENDATIONS/PLAN: Options of management discussed with patient and significant other who was present for the entire evaluation. The risks (bleeding, infection, radiation exposure, renal dysfunction, atheroembolism, allergic reactions including anaphylaxis, perforation of the heart or great vessels, arrhythmias, conduction disturbances, local vascular complications, cerebrovascular accident, [place], or ) as well as the benefits and possible outcomes of diagnostic cardiac catheterization were explained. Chest x-ray requested today. Repeat aPTT requested. Procedure scheduled with Dr. Monroe at [facility] on April 05, 2024. Continue aspirin, statin, and ezetimibe. Antianginal medication offered and declined. Further recommendations to come Virgil Mixon PA-C Department of Cardiology I spent a total of 40-54 minutes (exact time 45 mins) on the date of service in preparation, delivery, and documentation of the care provided to Robert Love excluding any time spent in the performance of separately billed services. This visit involved medical care services related to at least one serious condition or complex condition requiring ongoing care. This chart was completed in part utilizing [employer] Speech Voice Recognition Software. Grammatical errors, random word insertions, prounoun errors, and incomplete sentences are an occasional consequence of this system due to software limitations, ambient noise, and hardware issues. Any formal questions or concerns about the content, text, or information contained within the body of this dictation should be directly addressed to the provider for clarification. documented in this encounter Nursing Notes * Suzy Barragan CMA - 03/31/2024 11:38 AM EDT Examination Room: 2 Name: Robert Love Date of : (1950) Reason for Visit: discuss cath Interim Hospitalization(s): none Problems/Concerns: denied Chest Pain/SOB: denied chest pain, does have SOB with exercise [facility] is a way you can talk to your provider online through e-mail. Would you like to sign up? I can activate it for you? ALREADY ACTIVE Patient was instructed to not get up on the exam table until directed and assisted by their provider; patient is to remain seated in the chair/ wheelchair/ exam table for fall prevention and safety reasons. Patient is aware to have assistance to step down off exam table with personnel. Patient voiced full comprehension of instructions. documented in this encounter Plan of Treatment Upcoming Encounters Date Type Department Care Team (Late st Contact Info) Description 04/06/2024 8:00 AM EDT Office Visit Urology, [facility] [address] [facility] [place] [address] Se Alatorre MD [address] [place] [address] 04/07/2024 8:00 AM EDT Office Visit Orthopaedic [facility] [address] [place] [phone] Chuy Arteaga MD [address] [facility] [place] [address] 04/14/2024 8:00 AM EDT Office Visit Orthopaedic [facility] [address] 16 [place] [address] Chuy Arteaga MD 16 [place] [address] 04/29/2024 9:00 AM EDT Office Visit Cardiology, [facility] [address] [facility] [place] [address] Virgil Mixon PA-C [address] [place] [address] 06/15/2024 2:40 PM EST Office Visit Gastroenterology, [address] [phone] Oscar Shannon MD 132 [place] [address] 07/26/2024 8:40 AM EST Office Visit Family Practice [address] [place] [address] [address] [place] [address] Sakina Lares, [address] [place] [address] 08/05/2024 10:00 AM EST Nurse Only Ancillary [address] [place] [address] College, Nurse Annual Wellness Visit [address] [address] 09/21/2024 7:40 AM EDT Office Visit Dermatology [facility] [address] [place] [phone] Jez Pretty PA-C [address] [place] [address] Health Maintenance Due Date Last Done Comments Hepatitis C Screening 1968 Hepatitis B Vaccine (3 of 3 - 19+ 3-dose series) 03/09/2008 01/05/2008, 09/09/2007 Albumin/Creatinine Ratio 07/08/2024 07/08/2023 CKD PHOS USE SMARTSET 20283 07/24/2024 07/24/2023 Adult Wellness Visit 08/04/2024 08/04/2023 Depression Screening 08/04/2024 08/04/2023 GFR 09/25/2024 03/28/2024, 04/2 10/2023, 07/24/2023, Additional history exists CKD HGB USE SMARTSET 46074 03/28/202503/28, 03/28/2024, 07/24/2023, Additional history exists DTap/Tdap [...] as of this encounter Visit Diagnoses Diagnosis Abnormal stress test- Primary Other nonspecific abnormal cardiovascular system function study Abnormal partial thromboplastin time (PTT) Abnormal coagulation profile Dyspnea on exertion Other dyspnea and respiratory abnormality Exercise intolerance Other general symptoms Dyslipidemia, goal LDL below 70 Other and unspecified hyperlipidemia Abnormal LFTs Other abnormal blood chemistry SVT (supraventricular tachycardia) (HCC) Other specified cardiac dysrhythmias Coronary artery calcification seen on CT scan Family history of ischemic heart disease documented in this encounter Care Teams Hammer Operator Relationship Specialty Start Date End Date Sakina Lares DO [address] [place] [address] PCP - General Family Medicine 02/26/24 documented as of this encounter"
--- OUTSIDE RECORDS SUMMARY | 2024-04-05 14:38 | External Medical Summary | Summary of Care ---
Author Name Unknown Organization [facility] Address [address] [place] [facility] [place] [address] Phone [phone] Care Team Providers Care Oracle Solutions Architect Name Role Phone Sakina Lares DO Primary Care Provider [phone] Reason for Visit * Reason Onset Date Comments Test Results 03/31/2024 Encounter Details Date Type Department Care Team (Late st Contact Info) Description 03/31/2024 Telephone Cardiology, [facility] [address] [place] [address] Virgil Mixon PA-C [address] [place] [address] Test Results Allergies No known active allergiesdocumented [...] Active Additional Information Patient taking differently:0.4 mg [id number], Reported on 07/08/2023 Sertraline HCl 50 MG [...] MCG/0.3 mL, 12 YRS AND ABOVE, IM ([employer]) 05/04/2023 COVID-19, MRNA-LNP, 24-25, P R, 30MCG/0.3ML, IM, 12YRS AND ABOVE ([employer]) 03/24/2024 COVID-19, mRNA, LNP-s, PF, B ooster, 100mcg/0.5mg (Moderna) 10/22/2021,05/26/2021 Covid-19, Mrna, Lnp-s, Pf, B ivalent, 30 Mcg, IM, 12 yrs and above ([employer]) 04/22/2022 HEP A - Hepatitis A (Adult [...] Telephone Encounter - Ej Al LPN - 03/31/2024 1:24 PM EDT Sent patient a [employer] message to make aware. ----- Message from Virgil Mixon sent at 03/31/2024 1:23 PM EDT ----- ok documented in this encounter Plan of Treatment Upcoming Encounters Date Type Department Care Team (Late st Contact Info) Description 04/06/2024 8:00 AM EDT Office Visit Urology, [address] [address] Se Alatorre MD [address] [place] [address] 04/07/2024 8:00 AM EDT Office Visit Orthopaedic[address] [address] Chuy Arteaga MD 16 [place] [address] 04/14/2024 8:00 AM EDT [facility] [address] [place] [address] Chuy Arteaga MD 16 [place] [address] 04/29/2024 9:00 AM EDT Office Visit Cardiology, [facility] 132 [place] [address] Virgil Mixon PA-C [address] [place] [address] 06/15/2024 2:40 PM EST Office Visit Gastroenterology, [address] [phone] Oscar Shannon MD [address] [place] [address] 07/26/2024 8:40 AM EST Office Visit Family Practice 65 [facility] [address] [place] [address] Sakina Lares, [address] [place] [address] 08/05/2024 10:00 AM EST Nurse Only Ancillary 65 [facility] [address] [place] [address] College, Nurse Annual Wellness Visit [address] [place] [address] 09/21/2024 7:40 AM EDT Office Visit Dermatology [facility] 68 [place] [address] Jez Pretty PA-C 68 [place] [address] Health Maintenance Due Date Last Done Comments Hepatitis C Screening 1968 Hepatitis B Vaccine (3 of 3 - 19+ 3-dose series) 03/09/2008 01/05/2008, 09/09/2007 Albumin/Creatinine Ratio 07/08/2024 07/08/2023 CKD PHOS USE SMARTSET 76622 07/24/2024 07/24/2023 Adult Wellness Visit 08/04/2024 08/04/2023 Depression Screening 08/04/2024 08/04/2023 GFR 09/25/2024 03/28/2024, 04/2 10/2023, 07/24/2023, Additional history exists CKD HGB USE SMARTSET 98013 03/28/202503/28, 03/28/2024, 07/24/2023, Additional history exists DTap/Tdap [...] Not on filedocumented as of this encounter Care Teams Oracle Solutions Architect Relationship Specialty Start Date End Date Sakina Lares DO [address] [place] [address] PCP - General Family Medicine 02/26/24 documented as of this encounter
--- OUTSIDE RECORDS SUMMARY | 2024-04-05 14:39 | External Medical Summary | Summary of Care ---
Author Name Unknown Organization [facility] Address [address] [place] [address] Phone [phone] Care Team Providers Care Director Of Sales And Marketing Name Role Phone Sakina Lares DO Primary Care Provider Reason for Visit * Reason Onset Date Comments Medication Administration 03/24/2024 Flu an d/or Pneumo Inj Dosage Adjustment In Person (Anticoag Clinic) Encounter Details Date Type Department Care Team (Late st Contact Info) Description 03/24/2024 8:50 AM EDT Office Visit Family Practice 65 [facility] [address] [place] [address] College, Pharmacist [address] [address] Vaccine for streptococcus pneumoniae and influenza* Allergies No known active allergiesdocumented as of this encounter (statuses as of 03/24/2024) Medications Medication Sig Dispensed Refills Start Date [...] Active Additional Information Patient taking differently:0.4 mg [id number], Reported on 07/08/2023 Sertraline HCl 50 MG [...] as of this encounter (statuses as of 03/24/2024) Active Problems Problem Noted Date Diagnosed Date [...] as of this encounter (statuses as of 03/24/2024) Resolved Problems Problem Noted Date Diagnosed Date Resolved Date Stage 3 chronic kidney disease 07/08/2023 07/23/2023 documented as of this encounter (statuses as of 03/24/2024) Immunizations Name Administration Dates Next Due COVID-19 mRNA, LNP-s, No Pre serve, 2-Dose Series (Moderna) 08/28/2020,07/31/2020 COVID-19, MRNA-LNP, 23-24, P F, 30 MCG/0.3 mL, 12 YRS AND ABOVE, IM (enVerid) 05/04/2023 COVID-19, MRNA-LNP, 24-25, P R, 30MCG/0.3ML, IM, 12YRS AND ABOVE ([email or web address] The Bench) 03/24/2024 COVID-19, mRNA, LNP-s, PF, B ooster, 100mcg/0.5mg (Moderna) 10/22/2021,05/26/2021 Covid-19, Mrna, Lnp-s, Pf, B ivalent, 30 Mcg, IM, 12 yrs and above ([email or web address]) 04/22/2022 HEP A - Hepatitis A (Adult [...] on file documented as of this encounter Patient Instructions * Patient Instructions* Jesica Estevez RPh - 03/24/2024 9:15 AM EDT ~~PATIENT INSTRUCTIONS FOR PNEUMOCOCCAL VACCINE~~ Possible side effects of pneumococcal vaccine, (pneumonia shot), are usually mild and can include: 1. Soreness or redness at injection site 2. Low grade fever 3. Body aches You may use Tylenol/Acetaminophen as needed for these symptoms. LET YOUR DOCTOR KNOW IMMEDIATELY IF YOU HAVE DIFFICULTY BREATHING OR SWALLOWING, EXPERIENCE ITCHINGOF FEET OR HANDS, HAVE SWELLING OF EYES, FACE OR INSIDE OF NOSE. documented in this encounter Progress Notes * Jesica Estevez RPh - 03/24/2024 9:15 AM EDT Immunization Administration Documentation Time Out Procedure Performed: Yes Patient Identified (Ask Name/Date of ): Yes Does the patient have a fever greater than 101 degrees today? No Patient allergic to latex? No VFC Stock: No Immunization(s) verified: Yes, Immunization Name: Prevnar 20 (PCV20), VIS Sheet(s) given: Yes Verified Side and Site: Yes Verified Shot(s) with Parent(s)/Patient: Yes Jesica Barrera, Pharm D, BCACP Clinical Pharmacist 65 [facility] - [facility] 03/24/2024, 9:31 AM Ph. [phone] documented in this encounter Plan of Treatment Upcoming Encounters Date Type Department Care Team (Late st Contact Info) Description 03/31/2024 11:30 AM EDT Office Visit Cardiology, [facility] [place] [address] Virgil Mixon PA-C [address] [place] [address] 04/06/2024 8:00 AM EDT Office Visit Urology, [facility] [place] [address] Se Alatorre MD 27 [place], [place] [phone] 04/07/2024 8:00 AM EDT Office Visit Orthopaedics [facility] 16 [place] [address] Chuy Arteaga MD 16 [place], [place] [address] 04/14/2024 8:00 AM EDT Office Visit Orthopaedics [facility] 16 [place] [address] Chuy Arteaga MD 16 [place] [address] 04/29/2024 9:00 AM EDT Office Visit Cardiology, [facility] [address] [place] [address] Virgil Mixon PA-C 132 [facility] [place] [address] 06/15/2024 2:40 PM EST Office Visit Gastroenterology, [address] [phone] Oscar Shannon MD 132 [facility] [place] [address] 07/26/2024 8:40 AM EST Office Visit Family Practice 65 [facility] 293 [place] [address] Sakina Lares DO 293 [facility] [place] [address] 08/05/2024 10:00 AM EST Nurse Only Ancillary 65 [facility] 293 [place] [address] College, Nurse Annual Wellness Visit [address] [address] 09/21/2024 7:40 AM EDT Office Visit Dermatology [facility] 68 [place] [address] Jez Pretty PA-C [address] [place] [id number] Health Maintenance Due Date Last Done Comments Hepatitis C Screening 1968 Hepatitis B Vaccine (3 of 3 - 19+ 3-dose series) 03/09/2008 01/05/2008, 09/09/2007 GFR 05/05/2024 11/04/2023, 07/13, 03/02/2023, Additional history exists Albumin/Creatinine Ratio 07/08/2024 07/08/2023 CKD HGB USE SMARTSET 71928 07/24/202407/24, 03/24/2023, 03/24/2023, Additional history exists CKD PHOS USE SMARTSET 60631 07/24/2024 07/24/2023 Adult Wellness Visit 08/04/2024 08/04/2023 Depression Screening 08/04/2024 08/04/2023 DTap/Tdap Vaccines (3 - Td or Tdap) [...] as of this encounter Visit Diagnoses Diagnosis Vaccine for streptococcus pneumoniae and influenza- Primary Need for prophylactic vaccination against Streptococcus pneumoniae (pneumococcus) and influenza documented in this encounter Care Teams Director Of Sales And Marketing Relationship Specialty Start Date End Date Sakina Lares DO 293 [place] [address] PCP - General Family Medicine 02/26/24 documented as of this encounter
--- OUTSIDE RECORDS SUMMARY | 2024-04-05 14:39 | External Medical Summary ---
Author Name Unknown Address Unknown Organization K01:[facility] [place] [address] [place] [address] Laboratory Report Ordering Provider Test Date Status JOVANA ALMENDAREZ 03/28/2024 07:51:12 Final Observation Date Value Abnormality Reference (Units ) Status BUN 03/28/2024 07:51:12 21 Above high normal 6-20 (mg/dL) Final Creatinine 03/28/2024 07:51:12 1.3 Above high normal 0.6-1.2 (mg/dL) Final Glomerular filtration rate/1.73 sq M.predicted [Volume Rate/Area] in Serum, Plasma or Blood by Creatinine-based formula (CKD-EPI) 03/28/2024 07:51:12 59 Below low normal >=60 (mL/min) Final eGFR is calculated based on the CKD-EPI 2020 equation. Sodium 03/28/2024 07:51:12 141 135-146 (m mol/L) Final Potassium 03/28/2024 07:51:12 4.7 3.5-5.1 (m mol/L) Final Cl 03/28/2024 07:51:12 106 98-107 (mm ol/L) Final CO2 03/28/2024 07:51:12 16 Below low normal 22- 32 (mmol/L) Final Anion gap 03/28/2024 07:51:12 19 Above high normal 7- 15 (mmol/L) Final Glucose 03/28/2024 07:51:12 89 70-120 (mg /dL) Final Calcium 03/28/2024 07:51:12 9.1 8.4-10.2 ( mg/dL) Final Performing Location [facility] [place] [address] [place] [address]
--- OUTSIDE RECORDS SUMMARY | 2024-04-05 14:39 | External Medical Summary ---
Author Name Unknown Address Unknown Organization K01:[facility] [place] - [address] [place] [address] Laboratory Report Ordering Provider Test Date Status JOVANA ALMENDAREZ 03/28/2024 07:51:12 Final Warfarin Therapy
INR: 2 .0-3.0 conventional anticoagulation
INR: 2.5- 3.5 high intensity anticoagulation Observation Date Value Abnormality Reference (Units ) Status PT 03/28/2024 07:51:12 13.1 11.6-15.2 (seconds) Final INR 03/28/2024 07:51:12 1.0 0.8-1.2 Final Performing Location LABORATORY C - [address] [place] [address]
--- OUTSIDE RECORDS SUMMARY | 2024-04-05 14:39 | External Medical Summary | Summary of Care ---
Author Name Unknown Organization [facility] Address [address] [place] [address] Phone [phone] Care Team Providers Care Small Stock Facer Name Role Phone Sakina Lares DO Primary Care Provider [phone] Encounter Details Date Type Department Care Team (Late st Contact Info) Description 03/24/2024 9:10 AM EDT Immunization Ancillary 65 [place] [address] [place] [address] [address] Arrived Allergies No known active allergiesdocumented as of [...] Active Additional Information Patient taking differently:0.4 mg [id number], Reported on 07/08/2023 Sertraline HCl 50 MG [...] MCG/0.3 mL, 12 YRS AND ABOVE, IM (PFIZER-Comirnaty) 05/04/2023 COVID-19, MRNA-LNP, 24-25, P R, 30MCG/0.3ML, IM, 12YRS AND ABOVE (Pfizer-Comirnaty) 03/24/2024 COVID-19, mRNA, LNP-s, PF, B ooster, [...] 03/31/2024 11:30 AM EDT Office Visit Cardiology, [facility] 132 [facility] [place] [address] Virgil Mixon PA-C 132 [facility] [place] [address] 04/06/2024 8:00 AM EDT Office Visit Urology, [facility] 132 [facility] [place] [address] Se Alatorre MD 27 [place] [address] 04/07/2024 8:00 AM EDT [facility] 16 [place] [address] Chuy Arteaga MD 16 [place] [address] 04/14/2024 8:00 AM EDT [facility] [address] [place] [address] Chuy Arteaga MD 16 [place] [address] 04/29/2024 9:00 AM EDT Office Visit Cardiology, [facility] 132 [facility] [place] [address] Virgil Mixon PA-C [address] [place] [address] 06/15/2024 2:40 PM EST Office Visit Gastroenterology, [address] [phone] Oscar Shannon MD 132 [facility] [place] [address] 07/26/2024 8:40 AM EST Office Visit Family Practice [address] [address] Sakina Lares, DO 293 [place] [address] 08/05/2024 10:00 AM EST Nurse Only Ancillary [address] [place] [address] College, Nurse Annual Wellness Visit [address] [place] [address] 09/21/2024 7:40 AM EDT Office Visit Dermatology [facility] 68 [place] [address] Jez Pretty PA-C 68 [place] [address] Health Maintenance Due Date Last Done Comments Hepatitis C Screening 1968 Hepatitis B Vaccine (3 of 3 - 19+ 3-dose series) 03/09/2008 01/05/2008, 09/09/2007 GFR 05/05/2024 11/04/2023, 07/13, 03/02/2023, Additional history exists Albumin/Creatinine Ratio 07/08/2024 07/08/2023 CKD HGB USE SMARTSET 62786 07/24/202407/24, 03/24/2023, 03/24/2023, Additional history exists CKD PHOS USE SMARTSET 66065 07/24/2024 07/24/2023 Adult Wellness Visit 08/04/2024 08/04/2023 [...] filedocumented as of this encounter Care Teams Small Stock Facer Relationship Specialty Start Date End Date Sakina Lares DO [address] [place] [address] PCP - General Family Medicine 02/26/24 documented as of this encounter
--- OUTSIDE RECORDS SUMMARY | 2024-04-05 14:39 | External Medical Summary | Summary of Care ---
Author Name Unknown Organization [facility] Address [address] [facility] [address] Phone [phone] Care Team Providers Care Plant Protection Guard Name Role Phone Sakina Lares DO Primary Care Provider [phone] Reason for Visit * Reason Onset Date Comments Appointment 03/24/2024 Encounter Details Date Type Department Care Team (Late st Contact Info) Description 03/24/2024 Telephone Cardiology, [facility] [address] [place] [address] Virgil Mixon PA-C [address] [place] [address] Appointment Allergies No known active allergiesdocumented as of [...] Active Additional Information Patient taking differently:0.4 mg [id number], Reported on 07/08/2023 Sertraline HCl 50 MG [...] MCG/0.3 mL, 12 YRS AND ABOVE, IM ([email or web address]) 05/04/2023 COVID-19, MRNA-LNP, 24-25, P R, 30MCG/0.3ML, IM, 12YRS AND ABOVE (Maptia-GRAVIDIirnatArdian) 03/24/2024 COVID-19, mRNA, LNP-s, PF, B ooster, 100mcg/0.5mg (Moderna) 10/22/2021,05/26/2021 Covid-19, Mrna, Lnp-s, Pf, B ivalent, 30 Mcg, IM, 12 yrs and above (Maptia) 04/22/2022 HEP A - Hepatitis A (Adult [...] 03/31/2024 11:30 AM EDT Office Visit Cardiology, [facility] 132 [facility] [place] [address] Virgil Mixon PA-C 132 [facility] [place] [address] 04/06/2024 8:00 AM EDT Office Visit Urology, [facility] 132 [facility] [place] [address] Se Alatorre MD 27 [facility] [place] [address] 04/07/2024 8:00 AM EDT Office Visit Orthopaedic[address] [address] Chuy Arteaga MD 16 [place] [address] 04/14/2024 8:00 AM EDT Office Visit Orthopaedics [address] [address] Chuy Arteaga MD 16 [place] [address] 04/29/2024 9:00 AM EDT Office Visit Cardiology, [facility] 132 [facility] [place] [address] Virgil Mixon PA-C 132 [facility] [place] [address] 06/15/2024 2:40 PM EST [facility] [address] [place] [address] Oscar Shannon MD [address] [place] [address] 07/26/2024 8:40 AM EST Office Visit Family Practice [address] [address] Sakina Lares, 293 [place] [address] 08/05/2024 10:00 AM EST Nurse Only Ancillary [address] [place] [address] College, Nurse Annual Wellness Visit [address] [place] [address] 09/21/2024 7:40 AM EDT Office Visit Dermatology [facility] 68 [place] [address] Jez Pretty PA-C [address] [place] [address] Health Maintenance Due Date Last Done Comments Hepatitis C Screening 1968 Hepatitis B Vaccine (3 of 3 - 19+ 3-dose series) 03/09/2008 01/05/2008, 09/09/2007 GFR 05/05/2024 11/04/2023, 07/13, 03/02/2023, Additional history exists Albumin/Creatinine Ratio 07/08/2024 07/08/2023 CKD HGB USE SMARTSET 62463 07/24/202407/24, 03/24/2023, 03/24/2023, Additional history exists CKD PHOS USE SMARTSET 17135 07/24/2024 07/24/2023 Adult Wellness Visit 08/04/2024 08/04/2023 [...] filedocumented as of this encounter Care Teams Plant Protection Guard Relationship Specialty Start Date End Date Sakina Lares DO 293 [place] [place] [address] PCP - General Family Medicine 02/26/24 documented as of this encounter
--- OUTSIDE RECORDS SUMMARY | 2024-04-05 14:39 | External Medical Summary ---
Author Name Unknown Address Unknown Organization K01[place] [place] [address] [facility] [address] Laboratory Report Ordering Provider Test Date Status JOVANA ALMENDAREZ 03/28/2024 07:54:37 Final Anticoagulation may affect t esting. Refer to [employer] Test Catalog for a list of effects. Observation Date Value Abnormality Reference (Units ) Status aPTT panel - Platelet poor plasma 03/28/2024 07:54:37 70 Above high normal 21-38 (seconds) Final Performing Location [facility] [address] [place] [address]
--- OUTSIDE RECORDS SUMMARY | 2024-04-05 14:39 | External Medical Summary ---
Author Name Unknown Address Unknown Organization K01:[facility] [address] [facility] [address] Laboratory Report Ordering Provider Test Date Status JOVANA ALMENDAREZ 03/28/2024 07:51:12 Final Observation Date Value Abnormality Reference (Units ) Status SYNC LEUKOCYTES IN BLOOD BY AUTOMATED COUNT 03/28/2024 07:51:12 4.96 4.00-10.80 (K/uL) Final Segs 03/28/2024 07:51:12 66.6 40.0-75.0 (%) Final Lymphs % 03/28/2024 07:51:12 18.3 18.0-42.0 (%) Final Monos 03/28/2024 07:51:12 8.7 1.0-11.0 (%) Final Eosinophils 03/28/2024 07:51:12 5.4 0.0-6.0 (%) Final Basos 03/28/2024 07:51:12 0.8 0.0-2.0 (%) Final Immature Granulocyte, Percent 03/28/2024 07:51:12 0.2 0.0-2.0 (%) Final Absolute Segs 03/28/2024 07:51:12 3.30 1.80-7.70 (K/uL) Final Lymphs, absolute 03/28/2024 07:51:12 0.91 Below low normal 1.00-4.80 (K/ul) Final Monos, Abs 03/28/2024 07:51:12 0.43 0.00-1.10 (K/uL) Final Eos, Abs 03/28/2024 07:51:12 0.27 0.00-0.70 (K/uL) Final Basos, Abs 03/28/2024 07:51:12 0.04 0.00-0.20 (K/uL) Final Immature Granulocytes, Number 03/28/2024 07:51:12 0.01 0.00-0.20 (K/uL) Final Performing Location [facility] [address] [facility] [address]
--- OUTSIDE RECORDS SUMMARY | 2024-04-05 14:39 | External Medical Summary | Summary of Care ---
Author Name Unknown Organization [facility] Address [address] [place] [address] Phone [phone] Care Team Providers Care Personalization Specialist Name Role Phone Luda Sakina Valdes DO Primary Care Provider [phone] Reason for Visit * Reason Comments Outpatient Testing Encounter Details Date Type Department Care Team (Late st Contact Info) Description 03/28/2024 8:10 AM EDT Laboratory Laboratory, [facility] [address] [place] [address] [facility] [address] [place] [address] Pre-operative cardiovascular examination Allergies No known active allergiesdocumented as of this encounter (statuses as of 03/28/2024) Medications Medication Sig Dispensed Refills Start Date [...] Active Additional Information Patient taking differently:0.4 mg [id number], Reported on 07/08/2023 Sertraline HCl 50 MG [...] as of this encounter (statuses as of 03/28/2024) Active Problems Problem Noted Date Diagnosed Date [...] as of this encounter (statuses as of 03/28/2024) Resolved Problems Problem Noted Date Diagnosed Date Resolved Date Stage 3 chronic kidney disease 07/08/2023 07/23/2023 documented as of this encounter (statuses as of 03/28/2024) Immunizations Name Administration Dates Next Due COVID-19 mRNA, LNP-s, No Pre serve, 2-Dose Series (Moderna) 08/28/2020,07/31/2020 COVID-19, MRNA-LNP, 23-24, P F, 30 MCG/0.3 mL, 12 YRS AND ABOVE, IM (Syndiant-Kineto WirelessirReasoning Global eApplications Ltd.) 05/04/2023 COVID-19, MRNA-LNP, 24-25, P R, 30MCG/0.3ML, IM, 12YRS AND ABOVE (Granite [employer]-Kineto WirelessirnatSaint Cloud Arcade) 03/24/2024 COVID-19, mRNA, LNP-s, PF, B ooster, [...] 03/31/2024 11:30 AM EDT Office Visit Cardiology, [facility] 132 [facility] [place] [address] Virgil Mixon PA-C 132 [facility] [place] [address] 04/06/2024 8:00 AM EDT Office Visit Urology, [facility] 132 [facility] [place] [address] Se Alatorre MD 27 [facility] [place] [address] 04/07/2024 8:00 AM EDT Office Visit Orthopaedic[address] [address] Chuy Arteaga MD 16 [place] [address] 04/14/2024 8:00 AM EDT Office Visit Orthopaedics [address] [address] Chuy Arteaga MD 16 [place] [address] 04/29/2024 9:00 AM EDT Office Visit Cardiology, [facility] 132 [facility] [place] [address] Virgil Mixon PA-C 132 [facility] [place] [address] 06/15/2024 2:40 PM EST Office Visit Gastroenterology, [address] [address] Oscar Shannon MD [address] [place] [address] 07/26/2024 8:40 AM EST Office Visit Family Practice 65 [facility] 293 [place] [address] Sakina Lares, 293 [place] [address] 08/05/2024 10:00 AM EST Nurse Only Ancillary [address] [place] [address] College, Nurse Annual Wellness Visit [address] [place] [address] 09/21/2024 7:40 AM EDT Office Visit Dermatology [facility] 68 [place] [address] Jez Pretty PA-C [address] [place] [address] Pending Results Name Type Priority Associated Diagnoses Date /Time PT INR Lab Routine Pre-operative cardiovascular examination 03/28/2024 7:51 AM EDT APTT Lab Routine Pre-operative cardiovascular examination 03/28/2024 7:54 AM EDT BASIC METABOLIC PANEL Lab Routine Pre-operative cardiovascular examination 03/28/2024 7:51 AM EDT CBC WITH WBC DIFFERENTIAL Lab Routine Pre-operative cardiovascular examination 03/28/2024 7:51 AM EDT CBC Lab Routine Pre-operative cardiovascular examination 03/28/2024 7:51 AM EDT DIFFERENTIAL, AUTOMATED Lab Routine Pre-operative cardiovascular examination 03/28/2024 7:51 AM EDT Health Maintenance Due Date Last Done Comments Hepatitis C Screening 1968 Hepatitis B Vaccine (3 of 3 - 19+ 3-dose series) 03/09/2008 01/05/2008, 09/09/2007 GFR 05/05/2024 11/04/2023, 07/13, 03/02/2023, Additional history exists Albumin/Creatinine Ratio 07/08/2024 07/08/2023 CKD HGB USE SMARTSET 30743 07/24/202407/24, 03/24/2023, 03/24/2023, Additional history exists CKD PHOS USE SMARTSET 20025 07/24/2024 07/24/2023 Adult Wellness Visit 08/04/2024 08/04/2023 [...] as of this encounter Visit Diagnoses Diagnosis Pre-operative cardiovascular examination documented in this encounter Care Teams Personalization Specialist Relationship Specialty Start Date End Date Sakina Lares DO 293 [place] [address] PCP - General Family Medicine 02/26/24 documented as of this encounter
--- OUTSIDE RECORDS SUMMARY | 2024-04-05 14:39 | External Medical Summary | Summary of Care ---
Author Name Unknown Organization [facility] Address [address] [facility] [address] Phone [phone] Care Team Providers Care Soft Work Wrapper Layer And Examiner Name Role Phone NataliSakina fritz Keisha KUMAR Primary Care Provider [phone] Encounter Details Date Type Department Care Team (Late st Contact Info) Description 03/26/2024 Orders Only PATIENT PORTAL DO NOT DELETE THIS DEPT USED BY [place] [address] Allergies No known active allergiesdocumented as of this encounter (statuses as of 03/26/2024) Medications Medication Sig Dispensed Refills Start Date [...] Active Additional Information Patient taking differently:0.4 mg [id number], Reported on 07/08/2023 Sertraline HCl 50 MG [...] as of this encounter (statuses as of 03/26/2024) Active Problems Problem Noted Date Diagnosed Date [...] as of this encounter (statuses as of 03/26/2024) Resolved Problems Problem Noted Date Diagnosed Date Resolved Date Stage 3 chronic kidney disease 07/08/2023 07/23/2023 documented as of this encounter (statuses as of 03/26/2024) Immunizations Name Administration Dates Next Due COVID-19 [...] 03/31/2024 11:30 AM EDT Office Visit Cardiology, [facility] [address] [place] [address] Virgil Mixon PA-C 132 [facility] [place] [address] 04/06/2024 8:00 AM EDT Office Visit Urology, [facility] 132 [facility] [place] [address] Se Alatorre MD 27 [place] [address] 04/07/2024 8:00 AM EDT Office Visit Orthopaedics [facility] 16 [place] [address] Chuy Arteaga MD 16 [place] [address] 04/14/2024 8:00 AM EDT Office Visit Orthopaedics [facility] 16 [place] [address] Chuy Arteaga MD 16 [place] [address] 04/29/2024 9:00 AM EDT Office Visit Cardiology, [facility] [place] [address] Virgil Mixon, SAMI [address] [place] [address] 06/15/2024 2:40 PM EST Office Visit Gastroenterology, [address] [phone] Oscar Shannon MD [address] [place] [address] 07/26/2024 8:40 AM EST Office Visit Family Practice [address] [place] [address] Sakina Lares, 293 [place] [address] 08/05/2024 10:00 AM EST Nurse Only Ancillary 65 [facility] 293 [place] [address] College, Nurse Annual Wellness Visit [address] [place] [address] 09/21/2024 7:40 AM EDT Office Visit Dermatology [facility] 68 [place] [address] Jez Pretty PA-C 68 [place] [address] Health Maintenance Due Date Last Done Comments Hepatitis C Screening 1968 Hepatitis B Vaccine (3 of 3 - 19+ 3-dose series) 03/09/2008 01/05/2008, 09/09/2007 GFR 05/05/2024 11/04/2023, 07/13, 03/02/2023, Additional history exists Albumin/Creatinine Ratio 07/08/2024 07/08/2023 CKD HGB USE SMARTSET 63154 07/24/202407/24, 03/24/2023, 03/24/2023, Additional history exists CKD PHOS USE SMARTSET 80753 07/24/2024 07/24/2023 Adult Wellness Visit 08/04/2024 08/04/2023 [...] filedocumented as of this encounter Care Teams Soft Work Wrapper Layer And Examiner Relationship Specialty Start Date End Date Sakina Lares DO 293 [place] [address] PCP - General Family Medicine 02/26/24 documented as of this encounter
--- OUTSIDE RECORDS SUMMARY | 2024-04-05 14:39 | External Medical Summary | Summary of Care ---
Author Name Unknown Organization [facility] Address [address] [facility] [address] Phone [phone] Care Team Providers Care Attic Fans Mechanic Name Role Phone Sakina Lares DO Primary Care Provider [phone] Reason for Visit * Reason Onset Date Comments Appointment 03/24/2024 Encounter Details Date Type Department Care Team (Late st Contact Info) Description 03/24/2024 Telephone Cardiology, [facility] [address] [place] [address] Virgil Mixon PA-C [address] [place] [address] Appointment Allergies No known active allergiesdocumented as [...] Active Additional Information Patient taking differently:0.4 mg [id number], Reported on 07/08/2023 Sertraline HCl 50 MG [...] MCG/0.3 mL, 12 YRS AND ABOVE, IM ([employer]) 05/04/2023 COVID-19, MRNA-LNP, 24-25, P R, 30MCG/0.3ML, IM, 12YRS AND ABOVE (Grup[id number]) 03/24/2024 COVID-19, mRNA, LNP-s, PF, B ooster, 100mcg/0.5mg (Moderna) 10/22/2021,05/26/2021 Covid-19, Mrna, Lnp-s, Pf, B ivalent, 30 Mcg, IM, 12 yrs and above (Grupanya) 04/22/2022 HEP A - Hepatitis A (Adult [...] encounter Miscellaneous Notes * Telephone Encounter - Suzy Barragan CMA - 03/24/2024 9:46 AM EDT Spoke with pt. He is aware of date, time, location, instructions. * Telephone Encounter - Suzy Barragan CMA - 03/24/2024 8:32 AM EDT LMTRC. Please transfer to me if he calls back. Cath scheduled for 04/05 at 930 (830 arrival at [facility]) Dr. Monroe will be performing. NPO after 10pm the night before No caffeine 24 hours prior No tobacco products after midnight the night before No OTC vitamins, fish oil, and/or vitamin E the morning of. His medications are ok to take the morning of with a small amount of water. (Or bring them with youand take after) Be sure to take 4 baby asa the morning of Do not wear any jewelry You will need a canal driver Will need to have labs, CXR, and EKG done. Orders are in, he can do that at his convenience. He hasappt with Virgil on 03/31, keep as scheduled. Will do EKG at appt. documented in this encounter Plan of Treatment Upcoming Encounters Date Type Department Care Team (Late st Contact Info) Description 03/31/2024 11:30 AM EDT Office Visit Cardiology, [facility] 132 [facility] [place] [address] Virgil Mixon PA-C [address] [place] [address] 04/06/2024 8:00 AM EDT Office Visit Urology, [facility] 132 [facility] [place] [address] Se Alatorre MD 27 [place] [address] 04/07/2024 8:00 AM EDT [facility] [address] [place] [phone] Chuy Arteaga MD 16 [place] [address] 04/14/2024 8:00 AM EDT Office Visit Orthopaedic[address] [phone] Chuy Arteaga MD 16 [place] [address] 04/29/2024 9:00 AM EDT Office Visit Cardiology, [facility] [address] Virgil Mixon, PA-C 132 [place] [address] 06/15/2024 2:40 PM EST Office Visit Gastroenterology, [facility] [address] [place] [phone] Oscar Shannon MD 132 [facility] [address] 07/26/2024 8:40 AM EST Office Visit Family Practice [address] [place] [address] 293 [place] [address] Sakina Lares, 293 [place] [address] 08/05/2024 10:00 AM EST Nurse Only Ancillary [facility] [place] 293 [place] [address] College, Nurse Annual Wellness Visit 65 [facility] 293 [place] [address] 09/21/2024 7:40 AM EDT Office Visit Dermatology [facility] 68 [place] [phone] Jez Pretty PA-C 68 [place] [address] Scheduled Orders Name Type Priority Associated Diagnoses Orde r Schedule PT INR Lab Routine Pre-operative cardiovascular examination Expected: 03/24/2024, Expires: 03/24/2025 APTT Lab Routine Pre-operative cardiovascular examination Expected: 03/24/2024, Expires: 03/24/2025 BASIC METABOLIC PANEL Lab Routine Pre-operative cardiovascular examination Expected: 03/24/2024, Expires: 03/24/2025 CBC WITH WBC DIFFERENTIAL Lab Routine Pre-operative cardiovascular examination Expected: 03/24/2024, Expires: 03/24/2025 EKG EKG Routine Pre-operative cardiovascular examination Expected: 03/31/2024 (Approximate), Expires: 04/23/2025 XR CHEST 2 VIEWS Medical Imaging Routine Pre-operative cardiovascular examination Ordered: 03/24/2024 RIGHT/LEFT HEART CATH W/LEFT VENTRICULOGRAM Card Cath Routine Abnormal stress test Ordered: 03/24/2024 Health Maintenance Due Date Last Done Comments Hepatitis C Screening 1968 Hepatitis B Vaccine (3 of 3 - 19+ 3-dose series) 03/09/2008 01/05/2008, 09/09/2007 GFR 05/05/2024 11/04/2023, 07/13, 03/02/2023, Additional history exists Albumin/Creatinine Ratio 07/08/2024 07/08/2023 CKD HGB USE SMARTSET 80015 07/24/202407/24, 03/24/2023, 03/24/2023, Additional history exists CKD PHOS USE SMARTSET 85629 07/24/2024 07/24/2023 Adult Wellness Visit 08/04/2024 08/04/2023 [...] this encounter Visit Diagnoses Diagnosis Pre-operative cardiovascular examination- Primary Abnormal stress test Other nonspecific abnormal cardiovascular system function study documented in this encounter Care Teams Attic Fans Mechanic Relationship Specialty Start Date End Date Sakina Lares DO 293 [place] [address] PCP - General Family Medicine 02/26/24 documented as of this encounter
--- OUTSIDE RECORDS SUMMARY | 2024-04-05 14:39 | External Medical Summary | Summary of Care ---
Author Name Unknown Organization [facility] Address [address] [place] [facility] [place] [place] [address] Phone [phone] Care Team Providers Care Senior Oracle Applications Developer Name Role Phone Sakina Lares DO Primary Care Provider [phone] Reason for Visit * Reason Onset Date Comments Test Results 03/30/2024 Encounter Details Date Type Department Care Team (Late st Contact Info) Description 03/30/2024 Telephone Cardiology, [facility] [address] [place] [address] Virgil Mixon PA-C [address] [place] [address] Test Results Allergies No known active allergiesdocumented [...] Active Additional Information Patient taking differently:0.4 mg [id number], Reported on 07/08/2023 Sertraline HCl 50 MG [...] MCG/0.3 mL, 12 YRS AND ABOVE, IM (Mango[employer]) 05/04/2023 COVID-19, MRNA-LNP, 24-25, P R, 30MCG/0.3ML, IM, 12YRS AND ABOVE ([employer]) 03/24/2024 COVID-19, mRNA, LNP-s, PF, B ooster, 100mcg/0.5mg (Moderna) 10/22/2021,05/26/2021 Covid-19, Mrna, Lnp-s, Pf, B ivalent, 30 Mcg, IM, 12 yrs and above ([employer]) 04/22/2022 HEP A - Hepatitis A (Adult [...] 03/30/2024 9:47 AM EDT Sent patient a Xapo message to make aware. Lab ordered. ----- [...] 03/31/2024 11:30 AM EDT Office Visit Cardiology, [facility] 132 [facility] [place] [address] Virgil Mixon PA-C 132 [facility] [place] [address] 04/06/2024 8:00 AM EDT Office Visit Urology, [facility] 132 [facility] [place] [address] Se Alatorre MD 27 [place] [address] 04/07/2024 8:00 AM EDT [facility] [address] [place] [address] Chuy Arteaga MD 16 [facility] [place], [place] [phone] 04/14/2024 8:00 AM EDT Office Visit Orthopaedics [place] 16 [place] [address] Chuy Arteaga MD 16 [place], [place] [phone] 04/29/2024 9:00 AM EDT Office Visit Cardiology, [facility] 132 [place] [address] Virgil Mixon PA-C 132 [place] [address] 06/15/2024 2:40 PM EST Office Visit Gastroenterology, [address] [address] Oscar Shannon MD 132 [place] [address] 07/26/2024 8:40 AM EST Office Visit Family Practice [address] [place] [address] 293 [place] [phone] Sakina Lares, 293 [place] [address] 08/05/2024 10:00 AM EST Nurse Only Ancillary 65 [facility] 293 [place] [address] [place], Nurse Annual Wellness Visit [address] [place] [address] 09/21/2024 7:40 AM EDT Office Visit Dermatology [facility] 68 [place] [address] Jez Pretty PA-C 68 [place], [place] [phone] Scheduled Orders Name Type Priority Associated Diagnoses Orde r Schedule APTT Lab Routine Prothrombin time monitoring Expected: 03/30/2024 (Approximate), Expires: 03/30/2025 Health Maintenance Due Date Last Done Comments Hepatitis C Screening 1968 Hepatitis B Vaccine (3 of 3 - 19+ 3-dose series) 03/09/2008 01/05/2008, 09/09/2007 Albumin/Creatinine Ratio 07/08/2024 07/08/2023 CKD PHOS USE SMARTSET 17667 07/24/2024 07/24/2023 Adult Wellness Visit 08/04/2024 08/04/2023 Depression Screening 08/04/2024 08/04/2023 GFR 09/25/2024 03/28/2024, 04/10/2023, 07/24/2023, Additional history exists CKD HGB USE SMARTSET 61923 03/28/202503/28, 03/28/2024, 07/24/2023, Additional history exists DTap/Tdap [...] anticoagulants documented in this encounter Care Teams Senior Oracle Applications Developer Relationship Specialty Start Date End Date Sakina Lares DO 293 [place] [id number] PCP - General Family Medicine 02/26/24 documented as of this encounter
--- OUTSIDE RECORDS SUMMARY | 2024-04-05 14:40 | External Medical Summary ---
Author Name Unknown Address Unknown Organization [facility] [address] [place] [address] Laboratory Report Ordering Provider Test Date Status JOVANA ALMENDAREZ 03/18/2024 08:56:49 Final Observation Date Value Abnormality Reference (Units ) Status Albumin 03/18/2024 08:56:49 3.7 Below low normal 3.8-5.0 (g/dL) Final AST (Aspartate aminotransferase) 03/18/2024 08:56:49 43 10-50 (U/L) Final Alk Phos 03/18/2024 08:56:49 78 35-130 (U/L) Final ALT (Alanine aminotransferase) 03/18/2024 08:56:49 64 Above high normal 10-50 (U/L) Final Bilirubin, Total 03/18/2024 08:56:49 0.4 <=1.2 (mg/dL) Final Bilirubin, Direct 03/18/2024 08:56:49 <0.2 0.0-0.3 (mg/dL) Final Protein 03/18/2024 08:56:49 6.0 6.0-8.3 (g/dL) Final Performing Location [facility] - [address] [place] [address]
--- OUTSIDE RECORDS SUMMARY | 2024-04-05 14:40 | External Medical Summary | Summary of Care ---
Author Name Unknown Organization [facility] Address [address] [place] [address] Phone [phone] Care Team Providers Care Driver License Reviewing Officer Name Role Phone Luda Sakina Valdes DO Primary Care Provider + [phone] Reason for Referral * Evaluate & Treat - Unlimited Visits (Within 10 days (routine)) - Authorized Specialty Diagnoses / Procedures Referred By Tiffany daugherty Referred To Contact Gastroenterology Diagnoses Abnormal US (ultrasound) of abdomen Abnormal LFTs Virgil Mixon PA-C [address] [place] [address] Referral ID Status Reason Start Date Expiration Date Visits Requested Visits Authorized [id number] Authorized Specialty Services Required 03/08/[phone] Question Answer Referral Priority Within 10 days (routine) Where should this appointment be scheduled? [facility] For what condition is the patient being referred? All Gastro Conditions Reason for Visit * Reason Onset Date Comments Test Results 03/07/2024 Encounter Details Date Type Department Care Team (Late st Contact Info) Description 03/07/2024 Telephone Cardiology, [facility] [address] [place] [address] Virgil Mixon PA-C [address] [place] [address] Test Results Allergies No known active allergiesdocumented as of this encounter (statuses as of 03/08/2024) Medications Medication Sig Dispensed Refills Start Date [...] Active Additional Information Patient taking differently:0.4 mg [id number], Reported on 07/08/2023 Sertraline HCl 50 MG [...] as of this encounter (statuses as of 03/08/2024) Active Problems Problem Noted Date Diagnosed Date [...] as of this encounter (statuses as of 03/08/2024) Resolved Problems Problem Noted Date Diagnosed Date Resolved Date Stage 3 chronic kidney disease 07/08/2023 07/23/2023 documented as of this encounter (statuses as of 03/08/2024) Immunizations Name Administration Dates Next Due COVID-19 mRNA, LNP-s, No Pre serve, 2-Dose Series (Moderna) 08/28/2020,07/31/2020 COVID-19, MRNA-LNP, 23-24, P F, 30 MCG/0.3 mL, 12 YRS AND ABOVE, IM (PFIZER-Comirnaty) 05/04/2023 COVID-19, mRNA, LNP-s, PF, B ooster, 100mcg/0.5mg (Moderna) 10/22/2021,05/26/2021 Covid-19, Mrna, Lnp-s, Pf, B ivalent, 30 Mcg, IM, 12 yrs and above ([employer]ishberg) 04/22/2022 HEP A - Hepatitis A (Adult > 18 yrs) 09/07/2008, 01/05/2008 Hepatitis B, 20+ yrs 01/05/2008,09/09/2007 Pneumococcal Conjugate Vacc, 13 Valent (Prevnar) 04/09/2016 Pneumococcal Polysaccharide PPV23 (Pneumovax) RSV Vac., Bivalent, Perfusion F, Pf,0.5 Ml (Abry svo) 02/29/2024 Season Influenza, Quad, PF, Adjuvanted, 65+ Yrs, IM (FLUAD) 05/30/2021,03/30/2020 Seasonal Influenza Virus Vac cine, Unspecified Formulation 04/07/2022 Seasonal Influenza, Quadrivalent Hd (Fluzone Hd) 03/13/2023,04/07/2022 [...] Past Smokeless Tobacco: Never Comments:Mother smoked in [facility] growing up Alcohol Use Standard Drinks/Week Comments [...] Telephone Encounter - Ej Al LPN - 03/08/2024 9:08 AM EDT Referral placed * Telephone Encounter - Ej Al LPN - 03/07/2024 3:20 PM EDT Sent patient a WalkMe message to make aware. Awaiting reply to place referral. ----- Message from Virgil Mixon sent at 03/07/2024 3:15 PM EDT ----- Abnormal LFT's lead to a right upper quadrant ultrasound revealing an abnormally distended common duct. Recommend referral to GI, ? MRCP evaluation. documented in this encounter Plan of Treatment Upcoming Encounters Date Type Department Care Team (Late st Contact Info) Description 04/06/2024 8:00 AM EDT Office Visit Urology, [facility] 132 [facility] [place] [phone] Se Alatorre MD 27 [place] [id number] 04/07/2024 8:00 AM EDT Office Visit [facility] [place] 16 [place] [phone] Chuy Arteaga MD 16 [place] [address] 04/14/2024 8:00 AM EDT [facility] 16 [place] [address] Chuy Arteaga MD 16 [place] [address] 04/29/2024 9:00 AM EDT Office Visit Cardiology, [facility] 132 [place] [address] Virgil Mixon PA-C 132 [place] [address] 07/26/2024 8:40 AM EST Office Visit Family Practice [address] [place] [address] 293 [place] [address] Sakina Lares, 293 [place] [address] 08/05/2024 10:00 AM EST Nurse Only Ancillary [address] [address] College, Nurse Annual Wellness Visit [address] [place] [address] 09/21/2024 7:40 AM EDT Office Visit Dermatology [facility] 68 [place] [phone] Jez Pretty PA-C [address] [place] [address] Scheduled Referrals Name Type Priority Associated Diagnoses Order Schedule ADULT GASTROENTEROLOGY REFERRAL OP Referral Within 10 days (routine) Abnormal US (ultrasound) of abdomen Abnormal LFTs Ordered: 03/08/2024 Health Maintenance Due Date Last Done Comments Hepatitis C Screening 1968 Hepatitis B Vaccine (3 of 3 - 19+ 3-dose series) 03/09/2008 01/05/2008, 09/09/2007 COVID-19 Vaccine (7 - 2022- season) 2023 05/04/2023, 04/22/2022, 10/22/2021, Additional history exists Influenza Vaccine (FLU shot) (#1) 2024 03/13/2023, 04/07/2022, 04/07/2022, Additional history exists GFR 05/05/2024 11/04/2023, 07/13, 03/02/2023, Additional history exists Albumin/Creatinine Ratio 07/08/2024 07/08/2023 CKD HGB USE SMARTSET 57975 07/24/202407/24, 03/24/2023, 03/24/2023, Additional history exists CKD PHOS USE SMARTSET 33881 07/24/2024 07/24/2023 Adult Wellness Visit 08/04/2024 08/04/2023 Depression Screening 08/04/2024 08/04/2023 DTap/Tdap Vaccines (3 - Td or Tdap) 02/06/2034 02/07/2024, 04/09/2016 Colonoscopy Discontinued 12/03/2016 Colorectal Cancer Screening Discontinued Pneumococcal Vaccine: 65+ Years Completed 04/08/2018, 04/09/2016 Cologuard Discontinued Fecal Occult Blood [...] of this encounter Visit Diagnoses Diagnosis Abnormal US (ultrasound) of abdomen- Primary Nonspecific (abnormal) findings on radiological and other examination of abdominal area, including retroperitoneum Abnormal LFTs Other abnormal blood chemistry documented in this encounter Care Teams Driver License Reviewing Officer Relationship Specialty Start Date End Date Sakina Lares DO [address] [place] [address] PCP - General Family Medicine 02/26/24 documented as of this encounter
--- OUTSIDE RECORDS SUMMARY | 2024-04-05 14:40 | External Medical Summary | Summary of Care ---
Author Name Unknown Organization [facility] Address [address] [place] [facility] [place] [place] [address] Phone [phone] Care Team Providers Care Computer Support Analyst Name Role Phone Sakina Lares DO Primary Care Provider [phone] Reason for Visit * Reason Onset Date Comments Test Results 02/29/2024 Encounter Details Date Type Department Care Team (Late st Contact Info) Description 02/29/2024 Telephone Cardiology, [facility] [address] [place] [address] Virgil Mixon PA-C [address] [place] [address] Test Results Allergies No known active allergiesdocumented as of this encounter (statuses as of 03/04/2024) Medications Medication Sig Dispensed Refills Start Date [...] Active Additional Information Patient taking differently:0.4 mg [id number], Reported on 07/08/2023 Sertraline HCl 50 MG [...] as of this encounter (statuses as of 03/04/2024) Active Problems Problem Noted Date Diagnosed Date [...] as of this encounter (statuses as of 03/04/2024) Resolved Problems Problem Noted Date Diagnosed Date Resolved Date Stage 3 chronic kidney disease 07/08/2023 07/23/2023 documented as of this encounter (statuses as of 03/04/2024) Immunizations Name Administration Dates Next Due COVID-19 [...] No 08/04/2023 Does the household have a [place] service unitlar source of income? (Household - for ages [...] Telephone Encounter - Ej Al LPN - 03/04/2024 2:46 PM EDT Called patient to go over unread Hyletehart messages. Patient verbalized understanding. US order placed. Scheduling please assist. JANIEC Herman. * Telephone Encounter - Greg Monreal OSA - 03/02/2024 1:17 PM EDT I currently do not have any sooner appts I can place patient on the wait-list. Thank you. * Telephone Encounter - Ej Al LPN - 03/02/2024 10:53 AM EDT Sent patient a Hyletehart message to make aware. Scheduling please assist. ----- Message from Virgil Mixon sent at 03/01/2024 5:38 PM EDT ----- March 01, 2024 ALEXANDRA Interpretation Summary (as [...] diastolic function is mildly abnormal (grade I). Borderline positive stress test. Recommend moving up appointment to discuss results and discuss possible referral for diagnostic cardiac catheterization * Telephone Encounter - Ej Al LPN - 02/29/2024 3:51 PM EDT Sent patient a [employer] message to make aware. Lab ordered. Awaiting reply to place US order. ----- Message from Virgil Mixon sent at 02/29/2024 3:50 PM EDT ----- Lipids are now at goal however liver tests are mildly abnormal. This may or may not be due to the recent addition of ezetimibe. Reduce alcohol if consuming Reduce acetaminophen (Tylenol) to no more than 1,500 mg in a 24 hour period Refer for a right upper quadrant ultrasound, RE: Abnormal LFT's Check a hepatic function panel in 2-3 weeks documented in this encounter Plan of Treatment Upcoming Encounters Date Type Department Care Team (Late st Contact Info) Description 04/06/2024 8:00 AM EDT Office Visit Urology, [facility] 132 [facility] [place] [address] Se Alatorre MD 27 [place] [address] 04/07/2024 8:00 AM EDT Office Visit Orthopaedics [facility] 16 [place] [address] Chuy Arteaga MD 16 [place] [address] 04/14/2024 8:00 AM EDT Office Visit Orthopaedics [facility] 16 [place] [address] Chuy Arteaga MD 16 [place] [address] 04/29/2024 9:00 AM EDT Office Visit Cardiology, [facility] 132 [facility] [place] [address] Virgil Mixon PA-C 132 [facility] [place] [address] 07/26/2024 8:40 AM EST Office Visit Family Practice [facility] 293 [place] [phone] Sakina Larse DO 293 [facility] [place] [address] 08/05/2024 10:00 AM EST Nurse Only Ancillary [facility] 293 [place] [address] College, Nurse Annual Wellness Visit [address] [place] [address] 09/21/2024 7:40 AM EDT Office Visit Dermatology [facility] 68 [place] [address] Jez Pretty PA-C [address] [place] [address] Scheduled Orders Name Type Priority Associated Diagnoses Orde r Schedule HEPATIC FUNCTION PANEL Lab Routine Abnormal LFTs Expected: 03/14/2024 (Approximate), Expires: 02/28/2025 US ABDOMEN LIMITED Medical Imaging Routine Abnormal LFTs Expected: 03/05/2024 (Approximate), Expires: 04/04/2025 Health Maintenance Due Date Last Done Comments Hepatitis C Screening 1968 Hepatitis B Vaccine (3 of 3 - 19+ 3-dose series) 03/09/2008 01/05/2008, 09/09/2007 COVID-19 Vaccine ( season) 2023 05/04/2023, 04/22/2022, 10/22/2021, Additional history exists Influenza Vaccine (FLU shot) (#1) 2024 03/13/2023, 04/07/2022, 04/07/2022, Additional history exists GFR 05/05/2024 11/04/2023, 07/13, 03/02/2023, Additional history exists Albumin/Creatinine Ratio 07/08/2024 07/08/2023 CKD HGB USE SMARTSET 44634 07/24/202407/24, 03/24/2023, 03/24/2023, Additional history exists CKD PHOS USE SMARTSET 81327 07/24/2024 07/24/2023 Adult Wellness Visit 08/04/2024 08/04/2023 Depression Screening 08/04/2024 08/04/2023 DTaP,Tdap,and Td Vaccines (3 - Td or Tdap) 02/06/2034 [...] of this encounter Visit Diagnoses Diagnosis Abnormal LFTs- Primary Other abnormal blood chemistry documented in this encounter Care Teams Computer Support Analyst Relationship Specialty Start Date End Date Sakina Lares DO 293 [place] [place] [address] PCP - General Family Medicine 02/26/24 documented as of this encounter
--- OUTSIDE RECORDS SUMMARY | 2024-04-05 14:40 | External Medical Summary | Summary of Care ---
Author Name Unknown Organization [facility] Address [address] [place] [facility] [place] [address] Phone [phone] Care Team Providers Care Global Mobility Specialist Name Role Phone Sakina Lares DO Primary Care Provider [phone] Reason for Visit * Reason Onset Date Comments Test Results 03/21/2024 Encounter Details Date Type Department Care Team (Late st Contact Info) Description 03/21/2024 Telephone Cardiology, [facility] [address] [place] [address] Virgil Mixon PA-C [address] [place] [address] Test Results Allergies No known active allergiesdocumented as of this encounter (statuses as of 03/23/2024) Medications Medication Sig Dispensed Refills Start Date [...] Active Additional Information Patient taking differently:0.4 mg [id number], Reported on 07/08/2023 Sertraline HCl 50 MG [...] as of this encounter (statuses as of 03/23/2024) Active Problems Problem Noted Date Diagnosed Date [...] as of this encounter (statuses as of 03/23/2024) Resolved Problems Problem Noted Date Diagnosed Date Resolved Date Stage 3 chronic kidney disease 07/08/2023 07/23/2023 documented as of this encounter (statuses as of 03/23/2024) Immunizations Name Administration Dates Next Due COVID-19 [...] No 08/04/2023 Does the household have a [facility] source of income? (Household - for ages [...] Telephone Encounter - Suzy Barragan CMA - 03/23/2024 3:59 PM EDT Pt walked in to office today. I spoke with him and appt was moved up to 03/31 at 1130 with Virgil. * Telephone Encounter - Suzy Barragan CMA - 03/23/2024 3:59 PM EDT ----- Message from Virgil Mixon sent at 03/20/2024 10:55 AM EDT ----- Liver tests are mildly improved. Abnormal liver tests previously lead to a right upper quadrant ultrasound revealing an abnormally distended common duct. GI consultation and possible MRCP pending (scheduled to see by Dr. Shannon on 06/15/2024) Patient also recently with a borderline positive stress test, with future plans for left and right heart catheterization. Need to coordinate care....? GI evaluation prior to catheterization and possible intervention? * Telephone Encounter - Geena Calle LPN - 03/23/2024 10:56 AM EDT Sent note by fax. * Telephone Encounter - Virgil Mixon PA-C - 03/22/2024 4:21 PM EDT Should be okay to have 2 teeth extracted if under local without epi . continue baby aspirin if able. No cardiac indication for antibiotic prophylaxis Virgil Mixon PA-C Department of Cardiology * Telephone Encounter - Fred Mohamud OSA - 03/21/2024 11:15 AM EDT Person calling: [facility] Relationship to patient: Provider Phone/Fax to return call: [phone] Reason for call(brief): Clearance Provider Name: Virgil Mixon Detailed message to office: Stated pt needs to have 2 teeth extracted and have implants placed. They need to know if pt has cardiac clearance to do so. They can be reached at the number above and a good fax # for clearance paperwork is [phone], please advise. documented in this encounter Plan of Treatment Upcoming Encounters Date Type Department Care Team (Late st Contact Info) Description 03/24/2024 9:10 AM EDT Immunization Ancillary 65 [facility] [address] [place] [address] [place], [facility] [address] [address] 03/24/2024 9:15 AM EDT Immunization Ancillary 65 [facility] [address] [place] [address] [place], Covid19 Vaccine [address] [address] 03/31/2024 11:30 AM EDT Office Visit Cardiology, [facility] 132 [place] [address] Virgil Mixon PA-C 132 [facility] [address] 04/06/2024 8:00 AM EDT Office Visit Urology, [facility] 132 [place] [address] Se Alatorre MD [address] [place] [address] 04/07/2024 8:00 AM EDT Office Visit Orthopaedics [facility] [address] [place] [address] Chuy Arteaga MD 16 [place] [address] 04/14/2024 8:00 AM EDT Office Visit [facility]opaedics [facility] [place] [address] [place] [address] Chuy Arteaga MD 16 [place] [address] 04/29/2024 9:00 AM EDT Office Visit Cardiology, [facility] 132 [facility] [place] [address] Virgil Mixon PA-C [facility] [place] [address] 06/15/2024 2:40 PM EST Office Visit Gastroenterology, [address] [phone] Oscar Shannon MD [facility] [place] [address] 07/26/2024 8:40 AM EST Office Visit Family Practice [address] [place] [address] 293 [place] [address] Sakina Lares DO 293 [place] [address] 08/05/2024 10:00 AM EST Nurse Only Ancillary [address] [place] [address], [place] [address] College, Nurse Annual Wellness Visit [address] [place] [address], [place] [address] 09/21/2024 7:40 AM EDT Office Visit Dermatology [facility] 68 [place] [address] Jez Pretty PA-C [address] [place] [id number] Health Maintenance Due Date Last Done Comments Hepatitis C Screening 1968 Hepatitis B Vaccine (3 of 3 - 19+ 3-dose series) 03/09/2008 01/05/2008, 09/09/2007 COVID-19 Vaccine (2022- season) 2024 05/04/2023, 04/22/2022, 10/22/2021, Additional history exists Influenza Vaccine (FLU shot) (#1) 2024 03/13/2023, 04/07/2022, 04/07/2022, Additional history exists GFR 05/05/2024 11/04/2023, 07/13, 03/02/2023, Additional history exists Albumin/Creatinine Ratio 07/08/2024 07/08/2023 CKD HGB USE SMARTSET 16231 07/24/202407/24, 03/24/2023, 03/24/2023, Additional history exists CKD PHOS USE SMARTSET 22298 07/24/2024 07/24/2023 Adult Wellness Visit 08/04/2024 08/04/2023 [...] filedocumented as of this encounter Care Teams Global Mobility Specialist Relationship Specialty Start Date End Date Sakina Lares DO [address] [facility] [place] [address] PCP - General Family Medicine 02/26/24 documented as of this encounter
--- OUTSIDE RECORDS SUMMARY | 2024-04-05 14:40 | External Medical Summary | Summary of Care ---
Author Name Unknown Organization [facility] Address [address] [place] [address] Phone [phone] Care Team Providers Care Tassel Making Machine Operator Name Role Phone Sakina Lares DO Primary Care Provider [phone] Reason for Visit * Reason Comments Follow Up Pt is here for final 3rd gelsyn L shoulder, Pt is having a lot of relief * Social Care (Within 30 days (routine)) - Authorized Specialty Diagnoses / Procedures Referred By Tiffany daugherty Referred To Contact Orthopedics Diagnoses Unilateral primary osteoarthritis, left knee Procedures HI GEL-SYN INJECTION 0.1 MG Carlito Mackay PA-C [address] [place] [address] Carlito Mackay PA-C [address] [place] [address] Referral ID Status Reason Start Date Expiration Date V isits Requested Visits Authorized [id number] Authorized Precert 05/26/2023 07/12/2099 [id number] Encounter Details Date Type Department Care Team (Latest Contact Info) Description 03/02/2024 11:15 AM EDT Office Visit Orthopaedics [facility] [address] [place] [address] Carlito Mackay PA-C [address] [place] [address] Osteoarthritis of glenohumeral joint, left* Allergies No known active allergiesdocumented as of this encounter (statuses as of 03/02/2024) Medications Medication Sig Dispensed Refills Start Date [...] Active Additional Information Patient taking differently:0.4 mg [id number], Reported on 07/08/2023 Sertraline HCl 50 MG Oral Tablet (Zoloft) TAKE ONE TABLET BY MOUTH EVERY MORNING 100 Tablet 3 05/12/2023 05/11/2024 Active hydrOXYzine Pamoate 50 MG Oral Capsule [...] Daily(Non-Specified),Takes in the evening., Reported on 02/29/2024 Hospital, Clinic, or Other Facility Administered Medication Ordered Dose Route Frequency Start Date End Date Status sodium hyaluronate (Gelsyn-3) 16.8 MG/2ML inj 16.8 mgIndications:Osteoarthriti s of glenohumeral joint, left 16.8 mg IX ONCE 03/02/2024 03/02/2024 Ended documented as of this encounter (statuses as of 03/02/2024) Active Problems Problem Noted Date Diagnosed Date [...] as of this encounter (statuses as of 03/02/2024) Resolved Problems Problem Noted Date Diagnosed Date Resolved Date Stage 3 chronic kidney disease 07/08/2023 07/23/2023 documented as of this encounter (statuses as of 03/02/2024) Immunizations Name Administration Dates Next Due COVID-19 [...] Smokeless Tobacco: Never Comments:Mother smoked [place] Alcohol Use Standard Drinks/Week Comments [...] on file documented as of this encounter Progress Notes * Carlito Mackay PA-C - 03/02/2024 11:11 AM EDTAssociated Order(s): LG Joint Inj/Arthro: L glenohumeral Post-Procedure Diagnose(s): Osteoarthritis of glenohumeral joint, left Here today for 3rd and final injection Gelsyn 3 left glenohumeral joint. Patient has reported significant improvement in his symptoms. Certainly, no reported worsening symptoms. Pleased with results and care thus far. No other questions concerns. Complete review systems negative Exam unchanged, please see prior note Impression: Left glenohumeral joint osteoarthritis Plan: Today 's findings were discussed with the patient. They were educated regarding their diagnosis. Multiple treatment options discussed and agreed upon, including 3rd and final injection Gelsyn 3today. The patient was actually mentioned following up sooner than 6 months if the series wears offand paying [id number] for the series as insurances will not approve prior six-month from the 3rdshot. Again, patient aware willing proceed accordingly if that occurs. The patient has no other questions or concerns. Pleased with today 's care. Call sooner if needed. LG Joint Inj/Arthro: L glenohumeral on 03/02/2024 11:12 AM Indications: pain Details: 22 G needle, anterior approach Medications: (Gelsyn 3) Outcome: tolerated well, no immediate complications Procedure, treatment alternatives, risks and benefits explained, specific risks discussed. Consent was given by the patient. Immediately prior to procedure a time out was called to verify the correctpatient, procedure, equipment, lead performance support analyst and site/side marked as required. Patient was prepped and draped in the usual sterile fashion. This chart was completed in part utilizing [email or web address] Speech Voice Recognition Software. Grammatical errors, random word insertions, prounoun errors, and incomplete sentences are an occasional consequence of this system due to software limitations, ambient noise, and hardware issues. Any formal questions or concerns about the content, text, or information contain documented in this encounter Plan of Treatment Upcoming Encounters Date Type Department Care Team (Late st Contact Info) Description 04/06/2024 8:00 AM EDT Office Visit Urology, [facility] 132 [place] [address] Se Alatorre MD 27 [place] [address] 04/07/2024 8:00 AM EDT Office Visit Orthopaedics [address] [address] Chuy Arteaga MD [address] [place] [address] 04/14/2024 8:00 AM EDT Office Visit Orthopaedic[address] [address] Chuy Arteaga MD 16 [place] [address] 04/29/2024 9:00 AM EDT Office Visit Cardiology, [facility] 132 [facility] [place] [address] Virgil Mixon PA-C 132 [facility] [place] [address] 07/26/2024 8:40 AM EST Office Visit Family Practice 65 [facility] 293 [place] [address] Sakina Lares DO 293 [place] [address] 08/05/2024 10:00 AM EST Nurse Only Ancillary 65 [facility] 293 [place] [address] College, Nurse Annual Wellness Visit [address] [place] [address] 09/21/2024 7:40 AM EDT Office Visit Dermatology [facility] 68 [place] [address] Jez Pretty PA-C 68 [place] [address] Health Maintenance Due Date Last Done Comments Hepatitis C Screening 1968 Hepatitis B Vaccine (3 of 3 - 19+ 3-dose series) 03/09/2008 01/05/2008, 09/09/2007 COVID-19 Vaccine (2022- season) 2023 05/04/2023, 04/22/2022, 10/22/2021, Additional history exists Influenza Vaccine (FLU shot) (#1) 2024 03/13/2023, 04/07/2022, 04/07/2022, Additional history exists GFR 05/05/2024 11/04/2023, 07/13, 03/02/2023, Additional history exists Albumin/Creatinine Ratio 07/08/2024 07/08/2023 CKD HGB USE SMARTSET 41634 07/24/202407/244, 03/24/2023, 03/24/2023, Additional history exists CKD PHOS USE SMARTSET 42242 07/24/2024 07/24/2023 Adult Wellness Visit 08/04/2024 08/04/2023 [...] Not on filedocumented as of this encounter Procedures Procedure Name Priority Date/Time Associated Diagnosis Comments HI ARTHROCENTESIS ASPIR&/INJ MAJOR JT/BURSA W/O US Routine 03/02/2024 11:12 AM EDT Osteoarthritis of glenohumeral joint, left documented in this encounter Results * HI ARTHROCENTESIS ASPIR&/INJ MAJOR JT/BURSA W/O US (03/02/2024 11:12 AM EDT) Narrative Carlito Mackay PA-C - 03/02/2024 11:12 AM EDT Carlito Mackay PA-C 03/02/2024 11:28 AM LG Joint Inj/Arthro: L glenohumeral on 03/02/2024 11:12 AM Indications: pain Details: 22 G needle, anterior approach Medications: (Gelsyn 3) Outcome: tolerated well, no immediate complications Procedure, treatment alternatives, risks and benefits explained, specific risks discussed. Consent was given by the patient. Immediately prior to procedure a time out was called to verify the correct patient, procedure, equipment, lead performance support analyst and site/side marked as required. Patient was prepped and draped in the usual sterile fashion. Carlito Mackay PA-C PROCDOC FORM documented in this encounter Visit Diagnoses Diagnosis Osteoarthritis of glenohumeral joint, left- Primary documented in this encounter Administered Medications Inactive Administered Medications - up to 3 most recent administrations Medication Order MAR Action Action Date Dose Rate Site sodium hyaluronate (Gelsyn-3) 16.8 MG/2ML inj 16.8 mg 16.8 mg, Intra-Articular, ONCE, On Thu03/02/24 at 1145, For 1 dose Given 03/02/2024 11:36 AM EDT 16.8 mg Shoulder Left documented in this encounter Care Teams Tassel Making Machine Operator Relationship Specialty Start Date End Date Sakina Lares DO 293 [place] [address] PCP - General Family Medicine 02/26/24 documented as of this encounter
--- OUTSIDE RECORDS SUMMARY | 2024-04-05 14:40 | External Medical Summary | Summary of Care ---
Author Name Unknown Organization [facility] Address [address] [place] [facility] [place] [address] Phone [phone] Care Team Providers Care Food Production Associate Name Role Phone Sakina Lares DO Primary Care Provider [phone] Reason for Visit * Reason Onset Date Comments Test Results 02/29/2024 Encounter Details Date Type Department Care Team (Late st Contact Info) Description 02/29/2024 Telephone Cardiology, [facility] [address] [place] [address] Virgil Mixon PA-C [address] [place] [address] Test Results Allergies No known active allergiesdocumented [...] Active Additional Information Patient taking differently:0.4 mg [id number], Reported on 07/08/2023 Sertraline HCl 50 MG [...] No 08/04/2023 Does the household have a [facility] source [facility] income? (Household - [...] encounter Miscellaneous Notes * Telephone Encounter - Juani Queen OSA - 03/04/2024 3:31 PM EDT Called pt and scheduled and verified appt for : US ABDOMEN LIMITED at 10:30 AM (45 min)Arrive by 10:15 AM Thursday March 07, 2024 Appointment Provider:ALEE MOSER in [place] [facility] * Telephone Encounter - Ej Al LPN - 03/04/2024 2:46 PM EDT Called patient to go over unread Jewel Tonedhart messages. Patient verbalized understanding. US order placed. Scheduling please assist. JANICE Herman. * Telephone Encounter - Greg Monreal OSA - 03/02/2024 1:17 PM EDT I currently do not have any sooner appts I can place patient on the wait-list. Thank you. * Telephone Encounter - Ej Al LPN - 03/02/2024 10:53 AM EDT Sent patient a Jewel Tonedhart message to make aware. Scheduling please assist. [...] 02/29/2024 3:51 PM EDT Sent patient a PiperScout message to make aware. Lab ordered. Awaiting [...] Team (Late st Contact Info) Description 03/07/2024 10:30 AM EDT Imaging Radiology[address] [address] 04/06/2024 8:00 AM EDT Office Visit Urology, [facility] 132 [place] [address] Se [facility]atorre [facility] [address] 04/07/2024 8:00 AM EDT Office Visit Orthopaedics [facility] 16 [place] [address] Chuy Arteaga MD 16 [place], [place] [address] 04/14/2024 8:00 AM EDT Office Visit Orthopaedics [facility] 16 [facility] [place] [address] Chuy Arteaga MD 16 [place], [place] [address] 04/29/2024 9:00 AM EDT Office Visit Cardiology, [facility] 132 [place] [address] Virgil Mixon PA-C 132 [place] [address] 07/26/2024 8:40 AM EST Office Visit Family Practice [address] [place] [address] 293 [place] [address] Sakina Lares, 293 [place] [address] 08/05/2024 10:00 AM EST Nurse Only Ancillary [address] [place] [address] College, Nurse Annual Wellness Visit [address] [place] [address] 09/21/2024 7:40 AM EDT Office Visit Dermatology [facility] 68 [place] [address] Jez Pretty PA-C [address] [place] [address] Scheduled Orders Name Type Priority Associated Diagnoses [...] Ratio 07/08/2024 07/08/2023 CKD HGB USE SMARTSET 99464 07/24/202407/24, 03/24/2023, 03/24/2023, Additional history exists CKD PHOS USE SMARTSET 72957 07/24/2024 07/24/2023 Adult Wellness Visit 08/04/2024 08/04/2023 [...] chemistry documented in this encounter Care Teams Food Production Associate Relationship Specialty Start Date End Date Sakina Lares DO 293 [place] [address] PCP - General Family Medicine 02/26/24 documented as of this encounter
--- OUTSIDE RECORDS SUMMARY | 2024-04-05 14:40 | External Medical Summary | Summary of Care ---
Author Name Unknown Organization [facility] Address [address] [place] [address] Phone [phone] Care Team Providers Care Street Engineer Name Role Phone Luda Sakina Valdes DO Primary Care Provider [phone] Encounter Details Date Type Department Care Team (Late st Contact Info) Description 03/24/2024 9:15 AM EDT Immunization Ancillary [address] [address] [place], Covid19 Vaccine [address] [address] Arrived Allergies No known active allergiesdocumented as [...] Active Additional Information Patient taking differently:0.4 mg [id number], Reported on 07/08/2023 Sertraline HCl 50 MG [...] 11:30 AM EDT Office Visit Cardiology, [facility] 132 [facility] [place] [address] Virgil Mixon PA-C 132 [facility] [place] [address] 04/06/2024 8:00 AM EDT Office Visit Urology, [facility] 132 [facility] [place] [address] Se Alatorre MD 27 [place] [address] 04/07/2024 8:00 AM EDT [facility] 16 [place] [address] Chuy Arteaga MD 16 [place] [address] 04/14/2024 8:00 AM EDT Office Visit Orthopaedics [facility] 16 [place] [address] Chuy Arteaga MD 16 [place] [address] 04/29/2024 9:00 AM EDT Office Visit Cardiology, [facility] 132 [facility] [place] [address] Virgil Mixon PA-C 132 [facility] [place] [address] 06/15/2024 2:40 PM EST Office Visit Gastroenterology, [address] [address] Oscar Shannon MD [address] [place] [address] 07/26/2024 8:40 AM EST Office Visit Family Practice 65 [facility] 293 [place] [address] Sakina Lares, DO 293 [facility] [place] [address] 08/05/2024 10:00 AM EST Nurse Only Ancillary [address] [place] [address], [place] [address] College, Nurse Annual Wellness Visit [address] [place] [address] 09/21/2024 7:40 AM EDT Office Visit Dermatology [facility] 68 [place] [address] Jez Pretty PA-C [address] [place] [id number] Health Maintenance Due Date Last Done Comments Hepatitis C Screening 1968 Hepatitis B Vaccine (3 of 3 - 19+ 3-dose series) 03/09/2008 01/05/2008, 09/09/2007 GFR 05/05/2024 11/04/2023, 07/13, 03/02/2023, Additional history exists Albumin/Creatinine Ratio 07/08/2024 07/08/2023 CKD HGB USE SMARTSET 98568 07/24/202407/24, 03/24/2023, 03/24/2023, Additional history exists CKD PHOS USE SMARTSET 21330 07/24/2024 07/24/2023 Adult Wellness Visit 08/04/2024 08/04/2023 [...] filedocumented as of this encounter Care Teams Street Engineer Relationship Specialty Start Date End Date Sakina Lares DO 293 [facility] [place] [address] PCP - General Family Medicine 02/26/24 documented as of this encounter
--- OUTSIDE RECORDS SUMMARY | 2024-04-05 14:40 | External Medical Summary | Summary of Care ---
Author Name Unknown Organization [facility] Address [address] [place] [address] Phone [phone] Care Team Providers Care Consulting Project Director Name Role Phone Sakina Lares DO Primary Care Provider Reason for Visit * Reason Comments Follow Up Pt is here for final 3rd gelsyn L shoulder, Pt is having a lot of relief * Social Care (Within 30 days (routine)) - Authorized Specialty Diagnoses / Procedures Referred By Tiffany daugherty Referred To Contact Orthopedics Diagnoses Unilateral primary osteoarthritis, left knee Procedures SD GEL-SYN INJECTION 0.1 MG Carlito Mackay PA-C [address] [place] [address] Carlito Mackay PA-C [address] [place] [address] Referral ID Status Reason Start Date Expiration Date V isits Requested Visits Authorized [id number] Authorized Precert 05/26/2023 07/12/2099 [id number] Encounter Details Date Type Department Care Team (Latest Contact Info) Description 03/02/2024 11:15 AM EDT Office Visit Orthopaedics [facility] [address] [place] [address] Carlito Mackay PA-C [address] [place] [address] Osteoarthritis of glenohumeral joint, left* Allergies No [...] Active Additional Information Patient taking differently:0.4 mg [id number], Reported on 07/08/2023 Sertraline HCl 50 MG [...] Smokeless Tobacco: Never Comments:Mother smoked in [place] Alcohol Use Standard Drinks/Week Comments [...] months if the series wears offand paying [id number] for the series as insurances will not [...] called to verify the correctpatient, procedure, equipment, it technical support specialist and site/side marked as required. Patient was prepped and draped in the usual sterile fashion. This chart was completed in part utilizing [employer] Speech Voice Recognition Software. Grammatical errors, random [...] 04/06/2024 8:00 AM EDT Office Visit Urology, [facility] [address] [place] [address] Se Alatorre MD [address] [place] [address] 04/07/2024 8:00 AM EDT Office Visit Orthopaedics [address] [address] Chuy Arteaga MD [address] [place] [address] 04/14/2024 8:00 AM EDT Office Visit Orthopaedic[address] [address] Chuy Arteaga MD [address] [place] [address] 04/29/2024 9:00 AM EDT Office Visit Cardiology, [facility] 132 [facility] [place] [address] Virgil Mixon PA-C 132 [facility] [place] [address] 07/26/2024 8:40 AM EST Office Visit Family Practice 65 [facility] 293 [facility] [place] [address] Sakina Lares DO [address] [place] [address] 08/05/2024 10:00 AM EST Nurse Only Ancillary 65 [facility] 293 [facility] [place] [address] College, Nurse Annual Wellness Visit [address] [place] [address] 09/21/2024 7:40 AM EDT Office Visit Dermatology [facility] [address] [place] [address] Jez Pretty PA-C [address] [place] [address] Health Maintenance Due Date Last Done Comments Hepatitis C Screening 1968 Hepatitis B Vaccine (3 of 3 - 19+ 3-dose series) 03/09/2008 01/05/2008, 09/09/2007 COVID-19 Vaccine (2022- season) 2023 05/04/2023, 04/22/2022, 10/22/2021, Additional history exists Influenza Vaccine (FLU shot) (#1) 2024 03/13/2023, 04/07/2022, 04/07/2022, Additional history exists GFR 05/05/2024 11/04/2023, 07/13, 03/02/2023, Additional history exists Albumin/Creatinine Ratio 07/08/2024 07/08/2023 CKD HGB USE SMARTSET 29495 07/24/202407/244, 03/24/2023, 03/24/2023, Additional history exists CKD PHOS USE SMARTSET 70426 07/24/2024 07/24/2023 Adult Wellness Visit 08/04/2024 08/04/2023 [...] Procedure Name Priority Date/Time Associated Diagnosis Comments SD ARTHROCENTESIS ASPIR&/INJ MAJOR JT/BURSA W/O US Routine 03/02/2024 11:12 AM EDT Osteoarthritis of glenohumeral joint, left documented in this encounter Results * SD ARTHROCENTESIS ASPIR&/INJ MAJOR JT/BURSA W/O US (03/02/2024 [...] to verify the correct patient, procedure, equipment, it technical support specialist and site/side marked as required. Patient was [...] Left documented in this encounter Care Teams Consulting Project Director Relationship Specialty Start Date End Date Sakina Lares DO [address] [place] [address] PCP - General Family Medicine 02/26/24 documented as of this encounter
--- OUTSIDE RECORDS SUMMARY | 2024-04-05 14:41 | External Medical Summary | Summary of Care ---
Author Name Unknown Organization [facility] Address [address] [place] [address] Phone [phone] Care Team Providers Care Testing And Regulating Chief Name Role Phone Sakina Lares DO Primary Care Provider Reason for Visit * Reason Comments Follow Up Pt is here for his 2 nd gelsyn L shoulder * Social Care (Within 30 days (routine)) - Authorized Specialty Diagnoses / Procedures Referred By Tiffany daugherty Referred To Contact Orthopedics Diagnoses Unilateral primary osteoarthritis, left knee Procedures MT GEL-SYN INJECTION 0.1 MG Carlito Mackay PA-C [address] [place] [address] Carlito Mackay PA-C [address] [place] [address] Referral ID Status Reason Start Date Expiration Date V isits Requested Visits Authorized [id number] Authorized Precert 05/26/2023 07/12/2099 [id number] Encounter Details Date Type Department Care Team (Latest Contact Info) Description 02/24/2024 11:15 AM EDT Office Visit Orthopaedics [facility] [address] [place] [address] Carlito Mackay PA-C [address] [place] [address] Osteoarthritis of glenohumeral joint, left* Allergies No known active allergiesdocumented as of this encounter (statuses as of 02/24/2024) Medications Medication Sig Dispensed Refills Start Date [...] Active Additional Information Patient taking differently:0.4 mg [id number], Reported on 07/08/2023 Sertraline HCl 50 MG [...] mouth daily. 100 Tablet 3 11/09/2023 Active Hospital, Clinic, or Other Facility Administered Medication Ordered Dose Route Frequency Start Date End Date Status sodium hyaluronate (Gelsyn-3) 16.8 MG/2ML inj 16.8 mgIndications:Osteoarthriti s of glenohumeral joint, left 16.8 mg IX ONCE 02/24/2024 02/24/2024 Ended documented as of this encounter (statuses as of 02/24/2024) Active Problems Problem Noted Date Diagnosed Date [...] as of this encounter (statuses as of 02/24/2024) Resolved Problems Problem Noted Date Diagnosed Date Resolved Date Stage 3 chronic kidney disease 07/08/2023 07/23/2023 documented as of this encounter (statuses as of 02/24/2024) Immunizations Name Administration Dates Next Due COVID-19 mRNA, LNP-s, No Pre serve, 2-Dose Series (Moderna) 08/28/2020,07/31/2020 COVID-19, MRNA-LNP, 23-24, P F, 30 MCG/0.3 mL, 12 YRS AND ABOVE, IM (MarketVibe-Comirnat) 05/04/2023 COVID-19, mRNA, LNP-s, PF, B ooster, 100mcg/0.5mg (Moderna) 10/22/2021,05/26/2021 Covid-19, Mrna, Lnp-s, Pf, B ivalent, 30 Mcg, IM, 12 yrs and above (Pfizer) 04/22/2022 HEP A - Hepatitis A (Adult > 18 yrs) 09/07/2008, 01/05/2008 Hepatitis B, 20+ yrs 01/05/2008,09/09/2007 Pneumococcal Conjugate Vacc, 13 Valent (Prevnar) 04/09/2016 Pneumococcal Polysaccharide PPV23 (Pneumovax) Season Influenza, Quad, PF, Adjuvanted, 65+ Yrs, IM (FLUAD) 05/30/2021,03/30/2020 Seasonal Influenza Virus Vac cine, Unspecified Formulation 04/07/2022 Seasonal Influenza, Quadrivalent Hd (Fluzone Hd) 03/13/2023,04/07/2022 TDAP (age 10 and older)(Boostrix) 04/09/2016 documented as of this encounter Social History Tobacco Use Types Packs/Day Years Used Date Smoking Tobacco: Never Passive Smoke Exposure: Past Smokeless Tobacco: Never Comments:Mother smoked in [place] Alcohol Use Standard Drinks/Week Comments [...] Progress Notes * Carlito Mackay PA-C - 02/24/2024 11:28 AM EDTAssociated Order(s): LG Joint Inj/Arthro: L glenohumeral Post-Procedure Diagnose(s): Osteoarthritis of glenohumeral joint, left Established patient follows up for 2nd injection of Gelsyn 3 left glenohumeral joint. Has experienced subtle relief at best. Certainly, nothing significant and no reported worsening symptoms. Pleasedwith results and care thus far. No other questions concerns. Complete review systems negative Exam unchanged, please see prior note Impression: Left glenohumeral joint osteoarthritis Plan: Today 's findings were discussed with the patient. They were educated regarding their diagnosis. Multiple treatment options discussed and agreed upon, including 2nd injection Gelsyn 3 today. Follow up in 1 week 3rd and final injection series. The patient has no other questions or concerns. Pleased with today 's care. Call sooner if needed. LG Joint Inj/Arthro: L glenohumeral on 02/24/2024 11:29 AM Indications: pain Details: 22 G needle, anterior approach Medications: (Gelsyn 3) Outcome: tolerated well, no immediate complications Procedure, treatment alternatives, risks and benefits explained, specific risks discussed. Consent was given by the patient. Immediately prior to procedure a time out was called to verify the correctpatient, procedure, equipment, customer support executive and site/side marked as required. Patient was prepped and draped in the usual sterile fashion. This chart was completed in part utilizing [employer] Speech Voice Recognition Software. Grammatical errors, random word insertions, prounoun errors, and incomplete sentences are an occasional consequence of this system due to software limitations, ambient noise, and hardware issues. Any formal questions or concerns about the content, text, or information contained wit documented in this encounter Nursing Notes * Ruslan Rivera CMA - 02/24/2024 11:02 AM EDT Pt is here for his 2nd gelsyn L shoulder. Pt states when he attempts to bend arm back it is very painful and little ROM documented in this encounter Plan of Treatment Upcoming Encounters Date Type Department Care Team (Late st Contact Info) Description 02/29/2024 9:20 AM EDT Office Visit Family Practice [address] [place] [address] [address] [place] [address] Sakina Lares DO [address] [place] [address] 03/01/2024 1:30 PM EDT Imaging Cardiac Studies, [facility] 132 [place] [address] 03/02/2024 11:15 AM EDT Office Visit Orthopaedics [facility] 132 [facility] [place] [address] Carlito Mackay PA-C [address] [place] [place] [address] 04/06/2024 8:00 AM EDT Office Visit Urology, [facility] 132 [facility] [place] [address] Se Alatorre MD [address] [place] [address] 04/07/2024 8:00 AM EDT Office Visit [facility]opaedics [facility] [address] [place] [address] Chuy Arteaga MD [address] [place] [address] 04/14/2024 8:00 AM EDT Office Visit Orthopaedics [facility] [address] [place] [address] Chuy Arteaga MD [address] [place] [address] 04/29/2024 9:00 AM EDT Office Visit Cardiology, [facility] [address] [place] [address] Virgil Mixon PA-C [address] [place] [address] 08/05/2024 10:00 AM EST Nurse Only Ancillary 65 [facility] [address] [place] [address] College, Nurse Annual Wellness Visit [address] [address] 09/21/2024 7:40 AM EDT Office Visit Dermatology [facility] [address] [place] [address] Jez Pretty PA-C [address] [place] [address] Health Maintenance Due Date Last Done Comments Hepatitis C Screening 1968 Hepatitis B Vaccine (3 of 3 - 19+ 3-dose series) 03/09/2008 01/05/2008, 09/09/2007 COVID-19 Vaccine (2022- season) 2023 05/04/2023, 04/22/2022, 10/22/2021, Additional history exists Influenza Vaccine (FLU shot) (#1) 2024 03/13/2023, 04/07/2022, 04/07/2022, Additional history exists GFR 05/05/2024 11/04/2023, 07/13, 03/02/2023, Additional history exists Albumin/Creatinine Ratio 07/08/2024 07/08/2023 CKD HGB USE SMARTSET 95359 07/24/202407/24, 03/24/2023, 03/24/2023, Additional history exists CKD PHOS USE SMARTSET 22854 07/24/2024 07/24/2023 Adult Wellness Visit 08/04/2024 08/04/2023 Depression Screening 08/04/2024 08/04/2023 DTaP,Tdap,and Td Vaccines (2 - Td or Tdap) 04/09/2026 04/09/2016 Colonoscopy Discontinued 12/03/2016 Colorectal Cancer Screening [...] Procedure Name Priority Date/Time Associated Diagnosis Comments MT ARTHROCENTESIS ASPIR&/INJ MAJOR JT/BURSA W/O US Routine 02/24/2024 11:29 AM EDT Osteoarthritis of glenohumeral joint, left documented in this encounter Results * MT ARTHROCENTESIS ASPIR&/INJ MAJOR JT/BURSA W/O US (02/24/2024 11:29 AM EDT) Narrative Carlito Mackay PA-C - 02/24/2024 11:29 AM EDT Carlito Mackay PA-C 02/24/2024 11:29 AM LG Joint Inj/Arthro: L glenohumeral on 02/24/2024 11:29 AM Indications: pain Details: 22 G needle, anterior approach Medications: (Gelsyn 3) Outcome: tolerated well, no immediate complications Procedure, treatment alternatives, risks and benefits explained, specific risks discussed. Consent was given by the patient. Immediately prior to procedure a time out was called to verify the correct patient, procedure, equipment, customer support executive and site/side marked as required. Patient was [...] 16.8 mg 16.8 mg, Intra-Articular, ONCE, On Thu02/24/24 at 1200, For 1 dose Given 02/24/2024 11:34 AM EDT 16.8 mg Shoulder Left documented in this encounter Care Teams Testing And Regulating Chief Relationship Specialty Start Date End Date Sakina Lares DO PCP - General Family Medicine 04/07/22 documented as of this encounter
--- OUTSIDE RECORDS SUMMARY | 2024-04-05 14:41 | External Medical Summary | Summary of Care ---
Author Name Unknown Organization [facility] Address [address] [place] [address] Phone [phone] Care Team Providers Care Medical Assistant Instructor Name Role Phone Sakina Lares DO Primary Care Provider Reason for Visit * Reason Onset Date Comments Follow Up Immunization RSV Vaccine 02/29/2024 Encounter Details Date Type Department Care Team (Latest Contact Info) Description 02/29/2024 9:20 AM EDT Office Visit Family Practice [address] [place] [address] [place] [address] Sakina Lares DO [address] [place] [address] Coronary artery calcification seen on CT scan*; Chronic kidney disease, stage 3a (HCC); BPH with obstruction/lower urinary tract symptoms; Need for RSV vaccination; Risk and functional assessment Allergies No known active allergiesdocumented as of this encounter (statuses as of 02/29/2024) Medications Medication Sig Dispensed Refills Start Date [...] Active Additional Information Patient taking differently:0.4 mg [id number], Reported on 07/08/2023 Sertraline HCl 50 MG Oral Tablet (Zoloft) TAKE ONE TABLET BY MOUTH EVERY MORNING 100 Tablet 3 05/12/2023 4 Active hydrOXYzine Pamoate 50 MG Oral Capsule [...] Daily(Non-Specified),Takes in the evening., Reported on 02/29/2024 RSV Pre-Fusion F A&B Vac Rcmb 120 MCG/0.5ML Intramuscular Solution Reconstituted (Abrysvo)Indicatio ns:Need for RSV vaccination Inject 0.5 mL into a large muscle once for 1 dose. 1 Each 02/29/2024 4 Active Abrysvo 120 MCG/0.5ML Intramuscular Solution Reconstituted (RSV Pre-Fusion F A&B Vac Rcmb)Indications:N eed for RSV vaccination Inject 0.5 mL into a large muscle once for 1 dose. 1 Each 02/29/2024 4 Discontinu ed(Refill) documented as of this encounter (statuses as of 02/29/2024) Active Problems Problem Noted Date Diagnosed Date [...] as of this encounter (statuses as of 02/29/2024) Resolved Problems Problem Noted Date Diagnosed Date Resolved Date Stage 3 chronic kidney disease 07/08/2023 07/23/2023 documented as of this encounter (statuses as of 02/29/2024) Immunizations Name Administration Dates Next Due COVID-19 mRNA, LNP-s, No Pre serve, 2-Dose Series (Moderna) 08/28/2020,07/31/2020 COVID-19, MRNA-LNP, 23-24, P F, 30 MCG/0.3 mL, 12 YRS AND ABOVE, IM (PFIZER-Comirnaty) 05/04/2023 COVID-19, mRNA, LNP-s, PF, B ooster, 100mcg/0.5mg (Moderna) 10/22/2021,05/26/2021 Covid-19, Mrna, Lnp-s, Pf, B ivalent, 30 Mcg, IM, 12 yrs and above ([facility]) 04/22/2022 HEP A - Hepatitis A (Adult [...] Past Smokeless Tobacco: Never Tobacco Cessation:Counseling Given: Yes Comments:Mother smoked in home growing up Alcohol [...] Reading Time Taken Comments Blood Pressure 118/68 02/29/2024 9:16 AM EDT Pulse 61 02/29/2024 9:16 AM EDT Temperature 35.9 C (96.7 F) 02/29/2024 9:16 AM ED T Respiratory Rate 14 02/29/2024 9:16 AM EDT Oxygen Saturation 96% 02/29/2024 9:16 AM EDT Inhaled Oxygen Concentration - - Weight 79.5 kg (175 lb 3.2 oz) 02/29/2024 9:16 A M EDT Height 176.5 cm (5' 9.5") 02/29/2024 9:16 AM EDT Body Mass Index 25.5 02/29/2024 9:16 AM EDT documented in this encounter Patient Instructions * Patient Instructions* Rebecca Mckeon LPN - 02/29/2024 9:12 AM EDT Patient Instructions - Fall Prevention (This education is for all patients over 65 regardless of symptoms) Remember to take your current medications as prescribed. In order to prevent falls, you are encouraged to: Exercise Utilize assistive/adaptive devices Avoid multifocal lenses when walking Avoid hazards in home Maintain a regular toileting schedule Any questions please contact our office. Preventing Falls in the Home (This education is for all patients over 65 regardless of symptoms) As you get older, falls are more likely. Thats because your reaction time slows. Your muscles and joints may also get stiffer, making them less flexible. Illness, medications, and vision changes can also affect your balance. A fall could leave you unable to live on your own. To make your home safer, follow these tips: Floors Put nonskid pads under area rugs Remove throw rugs Replace worn floor coverings Tack carpets firmly to each step on carpeted stairs. Put nonskid strips on the edges of uncarpeted stairs Keep floors and stairs free of clutter and cords Arrange furniture so there are clear pathways Clean up any spills right away Bathrooms Install grab bars in the tub or shower Apply nonskid strips or put a nonskid rubber mat in the tub or shower Sit on a bath chair to bathe Use bathmats with nonskid backing Lighting Keep a flashlight in each room Put a nightlight along the pathway between the bedroom and the bathroom Janina Patient Education Copyright 2008 - 2010 Janina except where otherwise noted Preventing Falls: Exercises to Improve Balance, Flexibility, Strength, and Staying Power (This education is for all patients over 65 regardless of symptoms) Certain types of exercises may help make you less likely to fall. Try the ones below. Or do other exercises that your healthcare provider suggests. Depending on your health, you may need to start slowly. Dont let that stop you. Even small amounts of exercise can help you. Be sure to talk to yourhealthcare provider before starting any exercise program. Improve Balance Many types of exercise can help improve balance. Doug chi and yoga are good examples. Heres another one to try. You can do it anytime and almost anywhere. Stand next to a counter or solid support. Push yourself up onto your tiptoes. Hold for 5 seconds. If you start to lose your balance, hold on to the counter. Rest and repeat 5 times. Work up to holding for 20 to 30 seconds, if you can. Increase Flexibility Being more flexible makes it easier for you to move around safely. Try exercises like the seated hamstring stretch. Sit in a chair and put one foot on a stool. Straighten your leg and reach with both hands down either side of your leg. Reach as far down your leg as you can. Hold for about 20 seconds. Go back to the starting position. Then repeat 5 times. Switch legs. Build Strength Resistance exercises help build strength. You can do them without equipment. Or you can use weights, elastic bands, or special machines. One such exercise is called the biceps curl. You can hold a 1 pound weight or even a can of soup. Do this exercise at least 3 times a week. Strive for everyday. Sit up straight in a chair. Keep your elbow close to your body and your wrist straight. Bend your arm, moving your hand up to your shoulder. Then slowly lower your arm. Repeat 5 times. Switch to the other arm. Build Your Staying Power Aerobic exercises make your heart and lungs stronger so you can keep moving longer. Walking and swimming are two of the best types of exercises you can do. Using a stationary bike is great, too. Find an aerobic exercise that you enjoy. Start slowly and build up. Even 5 minutes is helpful. Aimfor a goal of 30 minutes, at least 3 times a week. You dont have to do 30 minutes in one session. Break it up and walk a little throughout the day. More Helpful Tips Start easy. Slowly work up to doing more. Talk with your healthcare provider about the best exercises for you. Call senior centers or health clubs about exercise programs. If needed, have a family member watch you walk every so often to check your stability. Exercise with a friend. Choose an activity you both enjoy. Try exercises that you can do anytime, anywhere. Here are two examples. Have someone with you when you first try these: Practice walking by placing one foot right in front of the other. Stand up and sit down 10 times. Repeat this throughout the day. Janina Patient Education Copyright 2008 - 2010 Janina except where otherwise noted. Preventing Falls: Moving Safely Using a Cane or Walker (This education is for all patients over 65 regardless of symptoms) Keep the cane away from your feet so you dont trip. A walking aid, such as a cane or walker, can help you stay more independent and avoid falls. Remember to keep your walking aid within easy reach when youre in a chair or in bed. And learn how to use it safely so you dont injure yourself. Using a Cane If you have a stronger side, hold the cane on that side. Get your balance. Move the cane and your weaker leg forward. Support your weight on both the cane and your weaker side. Step with your stronger leg. Start again from step 1. If youre using a folding walker, be sure you know how to lock it open. Check that its locked open before each use. Using a Walker Roll the walker (or lift it, if youre using one without wheels) forward about 12 inches. Step forward with your weaker leg first. Use the walker to help keep your balance. Bring your other foot forward to the center of the walker. Start again from step 1. Helpful Tips Check with your healthcare provider about the right walking aid to use. Ask about a walker with a seat attached. Check the tips of your cane or walker to make sure they have nonskid covers. Move slowly from room to room. Dont mendoza. Sit down to get dressed. Use a derrick pack or backpack to keep your hands free. Get help for jobs that mean climbing, even on a stepstool. Janina Patient Education Copyright 2008 - 2010 Janina except where otherwise noted. Treating Urinary Incontinence in Men (This education is for all patients over 65 regardless of symptoms) You can't always control the release of urine. You may leak urine. Or you may not be able to hold your urine until you can get to a bathroom. This is called urinary incontinence. The problem can be managed. Talk to your doctor about your treatment options. Taking Medications Prescription medications may help you. They may: Help the sphincter to work better. (This is the muscle that closes to keep urine from leaking out of the bladder.) Help stop the bladder from jona too often to push urine out. Help the bladder muscles contract with more force. Help relax the sphincter muscle and allow urine to flow more freely. Making Changes to Your Routine Certain changes in your daily routine may help. These include: Avoiding caffeine and alcohol. Using timed voiding. This is following a schedule for drinking fluids and urinating. Doing Kegel exercises daily. These exercises involve tightening the muscles in your sphincter and around your bladder to help strengthen them. Your doctor can explain how to do them. Using a Catheter A catheter is a narrow tube that is inserted through the urethra into the bladder. It drains urine.A condom catheter covers the penis. It channels urine into a collection bag. It is worn most of thetime. Intermittent catheterization means inserting a catheter to drain the bladder, then removing it. This is done on a regular schedule. Having Surgery If other options don't work, surgery may be recommended. If surgery is an option, your healthcare provider can discuss it with you and explain its risks and benefits. Healing After Prostate Surgery Surgery on the prostate gland can cause incontinence. Most often, the incontinence is only for a short time. It clears up when healing is complete. Very rarely, prostate surgery can result in permanent incontinence. Possible side effects of RSV vaccine, (Respiratory Syncytial Virus), are usually mild and can include: Soreness, swelling or redness at injection site Low grade fever Body aches or joint pain Headache Nausea or diarrhea You may use a fever/pain reducing medication for these symptoms. LET YOUR DOCTOR KNOW IMMEDIATELY IF YOU HAVE DIFFICULTY BREATHING OR SWALLOWING, EXPERIENCE ITCHINGOF FEET OR HANDS, HAVE SWELLING OF EYES, FACE OR INSIDE OF NOSE. documented in this encounter Progress Notes * Sakina Lares, - 02/29/2024 9:34 AM EDT SUBJECTIVE: Chief Complaint Patient presents with Follow Up Immunization RSV Vaccine HPI: Robert Love is a 73 year old male who presents today for regular return. Pt notes that he is doing well. He was seen in the ED in [place] for a wrist laceration. This has resolved. He has f/u for shoulder injection on Thursday. He will see Dr. Arteaga in [place] for his hand in March. Pt follows with cardiology. He has an echo tomorrow. He notes no chest pain or shortness of breath.Tolerating his medications well. PHM: Patient Active Problem List Diagnosis Dyslipidemia BPH with obstruction/lower urinary tract symptoms Insomnia Gastroesophageal reflux disease without esophagitis Hx of nonmelanoma skin cancer H/O actinic keratosis Chronic kidney disease, stage 3a (HCC) Coronary artery calcification seen on CT scan SVT (supraventricular tachycardia) (HCC) Current Outpatient Medications Medication Sig Dispense Refill [...] No current facility-administered medications for this visit. Past Medical History: Diagnosis Date BPH (benign prostatic hyperplasia) Hyperlipidemia Insomnia Lyme disease Shoulder arthritis bilaterally SVT (supraventricular tachycardia) (HCC) Past Surgical History: Procedure Laterality Date EGD, FLEXIBLE, DIAGNOSTIC 11/10/2022 acid reflux on bx / ESOPHAGOGASTRODUODENOSCOPY (EGD), FLEXIBLE, TRANSORAL, DIAGNOSTIC performed by Oscar Shannon MD at ENDOSCOPY [facility] EXPLORE, TREAT ANKLE JOINT Left repair of fracture KNEE ARTHROSCOPY/ARTHROPLASTY Right LAP;REPAIR RECURRENT HERNIA two OTHER Bilateral eye surgery on muscles bilaterally WRIST ARTHROSCOPY/SURGERY Right Review of patient's allergies indicates: No Known Allergies Family History Problem Relation Name Age of Onset Cancer Mother 78 Lung Other (Other) Father Alcoholism Heart attack Father 80 Parkinsonism Brother Family Status Relation Status Mo Fa Bro Paradise Alive Paradise Alive Social History Tobacco Use Smoking status: Never Passive exposure: Past Smokeless tobacco: Never Tobacco comments: Mother smoked in home growing up Substance Use Topics Alcohol use: Yes Comment: 3 or 4 glasses of wine weekly Vaping/E-Cigarette Use Vaping/E-Cigarette Use Never User Vaping/E-Cigarette Substances Nicotine No Other No Flavoring No THC No Cannabidiol (CBD) No Vaping/E-Cigarette Devices Disposable No Pre-filled or Refillable Cartridge No Refillable Tank No Pre-filled Pod No REVIEW OF SYSTEMS: Review of Systems Constitutional: Negative for chills, fatigue, fever and unexpected weight change. Respiratory: Negative for cough, chest tightness, shortness of breath and wheezing. Cardiovascular: Negative for chest pain, palpitations and leg swelling. Gastrointestinal: Negative for abdominal pain, constipation, diarrhea, nausea and vomiting. Musculoskeletal: Negative for arthralgias, gait problem and joint swelling. Skin: Negative for color change, pallor and rash. OBJECTIVE: BP 118/68 (BP Site: Right Arm, BP Position: Sitting, BP Cuff Size: Regular) | Pulse 61 | Temp 35.9 C (96.7 F) (Tympanic) | Resp 14 | Ht 1.765 m (5' 9.5") | Wt 79.5 kg (175 lb 3.2 oz) | SpO2 96% |BMI 25.50 kg/m | BSA 1.97 m PHYSICAL EXAM: Physical Exam Constitutional: General: He is not in acute distress. Appearance: He is well-developed. Cardiovascular: Rate and Rhythm: Normal rate and regular rhythm. Heart sounds: Normal heart sounds. No murmur heard. No friction rub. No gallop. Pulmonary: Effort: Pulmonary effort is normal. No respiratory distress. Breath sounds: Normal breath sounds. No wheezing or rales. Abdominal: General: Bowel sounds are normal. There is no distension. Palpations: Abdomen is soft. Tenderness: There is no abdominal tenderness. There is no guarding. Musculoskeletal: General: Deformity (contracture of right hand) present. No tenderness. Normal range of motion. Skin: General: Skin is warm and dry. Coloration: Skin is not pale. Findings: No erythema or rash. Neurological: Mental Status: He is alert and oriented to person, place, and time. ASSESSMENT/PLAN: (I25.10) Coronary artery calcification seen on CT scan (primary encounter diagnosis) Plan: Pt will remain on statin and zetia. No changes. (N18.31) Chronic kidney disease, stage 3a (HCC) Plan: pt up to date on lab studies. Will get at next visit. (N40.1, N13.8) BPH with obstruction/lower urinary tract symptoms Plan: Pt on flomax. He feels that this has been helpful. No changes. (Z29.11) Need for RSV vaccination Plan: RSV VAC, BIVALENT, PERF, PF, 0.5 ML, 60YRS AND ABOVE, RSV Pre-Fusion F A&B Vac Rcmb 120 MCG/0.5ML Intramuscular Solution Reconstituted (Abrysvo), DISCONTINUED: Abrysvo 120 MCG/0.5ML Intramuscular Solution Reconstituted (RSV Pre-Fusion F A&B Vac Rcmb) Vaccine given. See admin record. (Z13.9) Risk and functional assessment Plan: See nursing note. Follow-up: 6 months Total time today including reviewing chart before the visit, pertinent labs, imaging reports, face to face time, and documentation time was 32 minutes. Sakina Lares DO * Rebecca Mckeon LPN - 02/29/2024 9:16 AM EDT Does the patient have an illness today with a fever more than 101F? No Has the patient ever had a serious allergic reaction after receiving a vaccination? No Does the patient have Medicare Part D? No Verified patient has prescription/drug coverage. Patient has been informed that [employer] co-pays are close to $0. In most cases co-pays will be around $10. The maximum co-pay patients may get could be as high as $200 not applicable. RSV Vaccine Information Sheet has been provided. Rebecca Mckeon LPN 02/29/2024 9:16 AM IMMUNIZATION ADMINISTRATION DOCUMENTATION Time Out Procedure Performed: Yes Patient Identified (Ask Name/Date of ): Yes Patient allergic to latex?No VFC Stock? No Immunization(s) verified: Yes, Immunization Name: RSV, VIS Sheet(s) given: Yes Verified Side and Site: Yes Verified Shot(s) with Parent(s)/Patient: Yes RSV was administered per clinic protocol. Patient received the RSV VIS (Vaccine Information Sheet). Rebecca Mckeon LPN, 02/29/2024, 9:16 AM documented in this encounter Nursing Notes * Rebecca Mckeon LPN - 02/29/2024 9:12 AM EDT Patient here for routine follow up visit. Pt recently completed course of Augmentin for wound to right wrist. Seen in ED in [place]. Received sutures; wound healed. documented in this encounter Plan of Treatment Upcoming Encounters Date Type Department Care Team (Late st Contact Info) Description 03/01/2024 1:30 PM EDT Imaging Cardiac Studies, [facility] [address] [facility] [place] [address] 03/02/2024 11:15 AM EDT Office Visit Orthopaedics [facility] [address] [facility] [place] [address] Carlito Mackay PA-C [address] [place] [address] 04/06/2024 8:00 AM EDT Office Visit Urology, [facility] [address] [facility] [place] [address] eS Alatorre MD [address] [place] [address] 04/07/2024 8:00 AM EDT [facility] [address] [place] [address] Chuy Arteaga MD [address] [place] [address] 04/14/2024 8:00 AM EDT Office Visit Orthopaedic[address] [address] Chuy Arteaga MD [address] [place] [address] 04/29/2024 9:00 AM EDT Office Visit Cardiology, [facility] [address] [facility] [place] [address] Virgil Mixon PA-C [address] [place] [address] 07/26/2024 8:40 AM EST Office Visit Family Practice [address] [facility] [address] [place] [address] Sakina Lares DO [address] [place] [address] 08/05/2024 10:00 AM EST Nurse Only Ancillary [address] [facility] [address] [place] [address] College, Nurse Annual Wellness Visit [address] [place] [address] 09/21/2024 7:40 AM EDT Office Visit Dermatology [facility] [address] [place] [address] Jez Pretty PA-C [address] [place], [place] [id number] Health Maintenance Due Date Last Done Comments Hepatitis B Vaccine (3 of 3 - 19+ 3-dose series) 03/09/2008 01/05/2008, 09/09/2007 COVID-19 Vaccine ( season) 2024 05/04/2023, 04/22/2022, 10/22/2021, Additional history exists Postponed from 09/04/2023 (Unavailable) Hepatitis C Screening 03/01/2024 Postpo angel from 1966 (Patient Declined After Education) Influenza Vaccine (FLU shot) (#1) 2024 03/13/2023, 04/07/2022, 04/07/2022, Additional history exists GFR 05/05/2024 11/04/2023, 07/13, 03/02/2023, Additional history exists Albumin/Creatinine Ratio 07/08/2024 07/08/2023 CKD HGB USE SMARTSET 08755 07/24/202407/24, 03/24/2023, 03/24/2023, Additional history exists CKD PHOS USE SMARTSET 18744 07/24/2024 07/24/2023 Adult Wellness Visit 08/04/2024 08/04/2023 [...] as of this encounter Visit Diagnoses Diagnosis Coronary artery calcification seen on CT scan- Primary Chronic kidney disease, stage 3a (HCC) BPH with obstruction/lower urinary tract symptoms Hypertrophy of prostate with urinary obstruction and other lower urinary tract symptoms (LUTS) Need for RSV vaccination Need for prophylactic vaccination and inoculation against respiratory syncytial virus Risk and functional assessment Screening for unspecified condition documented in this encounter Care Teams Medical Assistant Instructor Relationship Specialty Start Date End Date Sakina Lares DO [address] [place] [address] PCP - General Family Medicine 02/26/24 documented as of this encounter
--- OUTSIDE RECORDS SUMMARY | 2024-04-05 14:41 | External Medical Summary | Summary of Care ---
Author Name Unknown Organization [facility] Address [address] [facility] [place] [address] Phone [phone] Care Team Providers Care Habitat Conservation Planner Name Role Phone Sakina Lares DO Primary Care Provider [phone] Reason for Visit * Reason Comments Follow Up L shoulder Encounter Details Date Type Department Care Team (Latest Contact Info) Description 02/19/2024 10:15 AM EDT Office Visit Orthopaedics [facility] [address] [place] [address] Carlito Mackay PA-C [address] [place] [address] Primary osteoarthritis of right knee* Allergies No known active allergiesdocumented as of this encounter (statuses as of 02/19/2024) Medications Medication Sig Dispensed Refills Start Date [...] Active Additional Information Patient taking differently:0.4 mg [id number], Reported on 07/08/2023 Sertraline HCl 50 MG [...] Route Frequency Start Date End Date Status lidocaine 1% 1 mL - triamcinolone acetonide 40 mg/mL 1 mL inj 2 mLIndications:Primary osteoarthritis of right knee 2 mL IJ ONCE 02/19/2024 02/19/2024 Ended documented as of this encounter (statuses as of 02/19/2024) Active Problems Problem Noted Date Diagnosed Date [...] as of this encounter (statuses as of 02/19/2024) Resolved Problems Problem Noted Date Diagnosed Date Resolved Date Stage 3 chronic kidney disease 07/08/2023 07/23/2023 documented as of this encounter (statuses as of 02/19/2024) Immunizations Name Administration Dates Next Due COVID-19 [...] Progress Notes * Carlito Mackay PA-C - 02/19/2024 9:59 AM EDTAssociated Order(s): LG Joint Inj/Arthro: R knee Post-Procedure Diagnose(s): Primary osteoarthritis of right knee Established patient currently being treated for left glenohumeral joint osteoarthritis presents today with a return complaint of right knee pain. States it is chronic in nature. Denies any new injuryor fall. Has pain with lengthy weight-bearing activity and uneven surfaces along with stairs. Points towards the medial joint line. Denies mechanical symptoms or instability. No swelling or redness. No calf pain. Will need x-rays today. Steroid injection several months ago worked well and inquiringabout a subsequent injection today. There were no vitals taken for this visit. complete review of systems negative General: alert and oriented x3 male, no acute distress, appears currently stated age, pleasant, well nourished Skin: Right knee does not reveal any erythema, effusion, ecchymosis, abrasion, laceration, skin breakdown otherwise Neurovascular: Right lower extremity is neurovascularly intact with good sensation strength throughout, calf supple nontender, toes were mobile, +5 strength dorsi and plantar flexion of the foot Musculoskeletal: Right knee ROM 0-120, medial jointline tenderness, crepitation noted in PFJ, femoral condyles are tender as well. Negative Sera's. Ligamentously stable regarding cruciate and collateral ligaments. Extensor mechanism intact. No obvious cystic change or masses the popliteal fossa. Pes anserine bursa and patellar tendon nontender. Hip and ankle atraumatic X-rays of the right knee reveals tricompartmental osteophytosis. Medial joint space narrowing. He has not [id number] but it is certainly advancing. He does have calcifications that are likely scarred into the posterior capsule identified best on lateral view consistent with degenerative changes. No acute findings such as fracture dislocation or subluxation. Unable to identify any type of obvious cystic changes or masses in the bone. Official radiology report to follow accordingly and we listed in the patient's chart under imaging. Personal interpretation and documentation regarding today's plain film radiographs performed by myself. Impression: Right knee osteoarthritis Plan: Today 's findings were discussed with the patient. They were educated regarding their diagnosis. Multiple treatment options discussed and agreed upon, including recommending formal physical therapy, bracing, intra-articular corticosteroid injection, thermal modalities, behavior modification Voltaren gel and rest. Goal is for the patient to experience minimum 3-4 months relief. If we achievethat we can revisit a subsequent steroid injection in the future. Failure to experience relief for that time frame we would have a discussion regarding PLEITEZ gel injection series. Time-out and updated consent achieved today. Of note, has left shoulder glenohumeral joint osteoarthritis. I have been performing those gel injections. Patient is interested in ultrasound guidance with our sports [employer] and I can help facilitate that follow-up 6 months or greater from yesterday's 3rd injection gel shot for his left shoulder. The patient has no other questions or concerns. Pleased with today 's care. Call sooner if needed. Patient instructed to call or return to clinic for fever or warmth and redness at injection site for potential infection. Patient also advised as to potential for steroid flare reaction including increased pain and redness at injection site which should be treated with ice and resolve within 24 hours. LG Joint Inj/Arthro: R knee on 02/19/2024 10:15 AM Indications: pain Details: 22 G needle, anteromedial approach Medications: (Triamcinolone lidocaine) Outcome: tolerated well, no immediate complications Procedure, treatment alternatives, risks and benefits explained, specific risks discussed. Consent was given by the patient. Immediately prior to procedure a time out was called to verify the correctpatient, procedure, equipment, legal support specialist and site/side marked as required. Patient was prepped and draped in the usual sterile fashion. This chart was completed in part utilizing [employer] Speech Voice Recognition Software. Grammatical errors, random word insertions, prounoun errors, and incomplete sentences are an occasional consequence of this system due to software limitations, ambient noise, and hardware issues. Any formal questions or concerns about the content, text, or information contained within the body of this dictation should be directly addressed to the provider for clarification documented in this encounter Nursing Notes * Krystina Chen LPN - 02/19/2024 9:52 AM EDT Pt presents for follow up R knee, would like steroid injection today. documented in this encounter Plan of Treatment Upcoming Encounters Date Type Department Care Team (Late st Contact Info) Description 02/24/2024 11:15 AM EDT Office Visit Orthopaedics [facility] [address] [place] [address] Carlito Mackay PA-C [address] [facility] [address] 02/29/2024 9:20 AM EDT Office Visit Family Practice [address] [place] [address], [place] [address] [place] [address] Sakina Lares DO [address] [place] [address] 03/01/2024 1:30 PM EDT Imaging Cardiac Studies, [facility] [address] [place] [address] 03/02/2024 11:15 AM EDT Office Visit Orthopaedics [facility] [address] [place] [address] Carlito Mackay PA-C 132 [facility] [place] [address] 04/06/2024 8:00 AM EDT Office Visit Urology, [facility] [address] [place] [address] Se Alatorre MD [address] [place] [address] 04/07/2024 8:00 AM EDT Office Visit [facility] [address] [place] [address] Chuy Arteaga MD [address] [place] [address] 04/14/2024 8:00 AM EDT Office Visit [facility] [address] [place] [address] Chuy Arteaga MD [address] [place] [address] 04/29/2024 9:00 AM EDT Office Visit Cardiology, [facility] 132 [facility] [place] [address] Virgil Mixon [facility]C [facility] [address] 08/05/2024 10:00 AM EST Nurse Only Ancillary 65 [facility] [address] [place] [address] College, Nurse Annual Wellness Visit [address] [place] [address] 09/21/2024 7:40 AM EDT Office Visit Dermatology [facility] [address] [place] [phone] Jez Pretty PA-C [address] [place] [address] Health Maintenance Due Date Last Done Comments Hepatitis C Screening 1968 Hepatitis B Vaccine (3 of 3 - 19+ 3-dose series) 03/09/2008 01/05/2008, 09/09/2007 COVID-19 Vaccine ( season) 2023 05/04/2023, 04/22/2022, 10/22/2021, Additional history exists Influenza Vaccine (FLU shot) (#1) 2024 03/13/2023, 04/07/2022, 04/07/2022, Additional history exists GFR 05/05/2024 11/04/2023, 07/13, 03/02/2023, Additional history exists Albumin/Creatinine Ratio 07/08/2024 07/08/2023 CKD HGB USE SMARTSET 46718 07/24/202407/24, 03/24/2023, 03/24/2023, Additional history exists CKD PHOS USE SMARTSET 03840 07/24/2024 07/24/2023 Adult Wellness Visit 08/04/2024 08/04/2023 [...] Procedure Name Priority Date/Time Associated Diagnosis Comments AL ARTHROCENTESIS ASPIR&/INJ MAJOR JT/BURSA W/O US Routine 02/19/2024 10:15 AM EDT Primary osteoarthritis of right knee documented in this encounter Results * AL ARTHROCENTESIS ASPIR&/INJ MAJOR JT/BURSA W/O US (02/19/2024 10:15 AM EDT) Narrative Carlito Mackay PA-C - 02/19/2024 10:15 AM EDT Carlito Mackay PA-C 02/19/2024 10:16 AM LG Joint Inj/Arthro: R knee on 02/19/2024 10:15 AM Indications: pain Details: 22 G needle, anteromedial approach Medications: (Triamcinolone lidocaine) Outcome: tolerated well, no immediate complications Procedure, treatment alternatives, risks and benefits explained, specific risks discussed. Consent was given by the patient. Immediately prior to procedure a time out was called to verify the correct patient, procedure, equipment, legal support specialist and site/side marked as required. Patient was prepped and draped in the usual sterile fashion. Carlito Mackay PA-C PROCDOC FORM documented in this encounter Visit Diagnoses Diagnosis Primary osteoarthritis of right knee- Primary Primary localized osteoarthrosis, lower leg documented in this encounter Administered Medications Inactive Administered Medications - up to 3 most recent administrations Medication Order MAR Action Action Date Dose Rate Site lidocaine 1% 1 mL - triamcinolone acetonide 40 mg/mL 1 mL inj 2 mL 2 mL, Injection, ONCE, On Thu02/19/24 at 1045, For 1 dose, Lidocaine 1% 1mL Triamcinolone Acetonide 40 mg/mL 1 mL (Final concentration = 20 mg/mL) REFRIGERATE and SHAKE WELL Given 02/19/2024 10:23 AM EDT 2 mL Knee Right documented in this encounter Care Teams Habitat Conservation Planner Relationship Specialty Start Date End Date Sakina Lares DO PCP - General Family Medicine 04/07/22 documented as of this encounter
--- OUTSIDE RECORDS SUMMARY | 2024-04-05 14:41 | External Medical Summary ---
Author Name Unknown Address Unknown Organization K01:LABORATORY [facility] [place] - [address] [place] [address] Laboratory Report Ordering Provider Test Date Status JOVANA ALMENDAREZ 02/29/2024 08:32:29 Final Observation Date Value Abnormality Reference (Units ) Status ALT (Alanine aminotransferase) 02/29/2024 08:32:29 69 Above high normal 10-50 (U/L) Final Performing Location LABORATORY [facility] - [address] [place] [address]
--- OUTSIDE RECORDS SUMMARY | 2024-04-05 14:41 | External Medical Summary | Summary of Care ---
Author Name Unknown Organization [facility] Address [address] [place] [address] Phone [phone] Care Team Providers Care Multiplex Operator Name Role Phone Sakina Lares DO Primary Care Provider Reason for Visit * Reason Comments Follow Up Pt is here for his 2 nd gelsyn L shoulder * Social Care (Within 30 days (routine)) - Authorized Specialty Diagnoses / Procedures Referred By Tiffany daugherty Referred To Contact Orthopedics Diagnoses Unilateral primary osteoarthritis, left knee Procedures [place] GEL-SYN INJECTION 0.1 MG Carlito Mackay PA-C [address] [place] [address] Carlito Mackay PA-C [address] [place] [address] Referral ID Status Reason Start Date Expiration Date V isits Requested Visits Authorized [id number] Authorized Precert 05/26/2023 07/12/2099 [id number] Encounter Details Date Type Department Care Team (Latest Contact Info) Description 02/24/2024 11:15 AM EDT Office Visit Orthopaedics [facility] [address] [place] [address] Carlito Mackay PA-C [address] [place] [address] Osteoarthritis of glenohumeral joint, left* Allergies No [...] Active Additional Information Patient taking differently:0.4 mg [id number], Reported on 07/08/2023 Sertraline HCl 50 MG [...] MCG/0.3 mL, 12 YRS AND ABOVE, IM (SonicPollen-Comirnat) 05/04/2023 COVID-19, mRNA, LNP-s, PF, B ooster, [...] Smokeless Tobacco: Never Comments:Mother smoked in [place] Alcohol Use Standard Drinks/Week Comments [...] called to verify the correctpatient, procedure, equipment, manager support and site/side marked as required. Patient was prepped and draped in the usual sterile fashion. This chart was completed in part utilizing [employer] Speech Voice Recognition Software. Grammatical errors, random [...] 9:20 AM EDT Office Visit Family Practice [address] [place] [address] [address] [place] [address] Sakina Lares DO [address] [place] [address] 03/01/2024 1:30 PM EDT Imaging Cardiac Studies, [facility] 132 [place] [address] 03/02/2024 11:15 AM EDT Office Visit Orthopaedics [facility] [address] [place] [address] Carlito Mackay PA-C [address] [facility] [address] 04/06/2024 8:00 AM EDT Office Visit Urology, [facility] [address] [place] [address] Se Alatorre MD [address] [place] [address] 04/07/2024 8:00 AM EDT Office Visit [facility]ics [facility] [address] [place] [address] Chuy Arteaga MD [address] [place] [address] 04/14/2024 8:00 AM EDT Office Visit Orthopaedics [facility] [address] [place] [address] Chuy Arteaga MD [address] [place] [address] 04/29/2024 9:00 AM EDT Office Visit Cardiology, [facility] [address] [place] [address] Virgil Mixon PA-C [address] [place] [address] 08/05/2024 10:00 AM EST Nurse Only Ancillary 65 [facility] [address] [place] [address] College, Nurse Annual Wellness Visit [address] [address] 09/21/2024 7:40 AM EDT Office Visit Dermatology [facility] [address] [place] [address] Jez Pretty PA-C [address] [place] [address] Health Maintenance Due Date Last Done Comments Hepatitis C Screening 1968 Hepatitis B Vaccine (3 of 3 - 19+ 3-dose series) 03/09/2008 01/05/2008, 09/09/2007 COVID-19 Vaccine (2022- season) 2023 05/04/2023, 04/22/2022, 10/22/2021, Additional history exists Influenza Vaccine (FLU shot) (#1) 2024 03/13/2023, 04/07/2022, 04/07/2022, Additional history exists GFR 05/05/2024 11/04/2023, 07/13, 03/02/2023, Additional history exists Albumin/Creatinine Ratio 07/08/2024 07/08/2023 CKD HGB USE SMARTSET 26768 07/24/202407/24, 03/24/2023, 03/24/2023, Additional history exists CKD PHOS USE SMARTSET 85651 07/24/2024 07/24/2023 Adult Wellness Visit 08/04/2024 08/04/2023 [...] Procedure Name Priority Date/Time Associated Diagnosis Comments WY ARTHROCENTESIS ASPIR&/INJ MAJOR JT/BURSA W/O US Routine 02/24/2024 11:29 AM EDT Osteoarthritis of glenohumeral joint, left documented in this encounter Results * WY ARTHROCENTESIS ASPIR&/INJ MAJOR JT/BURSA W/O US (02/24/2024 [...] to verify the correct patient, procedure, equipment, manager support and site/side marked as required. Patient was [...] Left documented in this encounter Care Teams Multiplex Operator Relationship Specialty Start Date End Date Sakina Lares DO PCP - General Family Medicine 04/07/22 documented as of this encounter
--- OUTSIDE RECORDS SUMMARY | 2024-04-05 14:41 | External Medical Summary ---
Author Name Unknown Address Unknown Organization K01:LABORATORY [facility] [place] - [address] [facility] [address] Laboratory Report Ordering Provider Test Date Status JOVANA ALMENDAREZ 02/29/2024 08:32:29 Final Observation Date Value Abnormality Reference (Units ) Status Triglyceride 02/29/2024 08:32:29 87 <=174 ( mg/dL) Final Triglyceride Reference Range s (mg/dL):
<150 Acceptable
150-174 Borderline high
175-499 High
>=500 Very high Cholesterol 02/29/2024 08:32:29 128 <200 (mg /dL) Final Total Cholesterol Reference Ranges (mg/dL):
<200 Desirable
200-239 Borderline high
>=240 High HDL 02/29/2024 08:32:29 43 >39 (mg/dL ) Final HDL Cholesterol Reference Ra nges (mg/dL):
>=60 High (Desirable)
<50 Low (Undesirable) For Females
<40 Low (Undesirable) For Males NON-HDL CHOLESTEROL 02/29/2024 08:32:29 85 <=159 (mg/dL) Final Non-HDL Cholesterol Referenc e Range (mg/dL):
<100 Target level for high risk ASCVD patient
<130 Optimal for general population
130-159 Near optimal for general population
160-189 Borderline High
190-219 High
>=220 Very High LDL, (calculated) 02/29/2024 08:32:29 68 <= 129 (mg/dL) Final LDL Cholesterol Reference Ra nges (mg/dL):
<70 Target level for high risk ASCVD patient
<100 Optimal for general population
100-129 Near optimal for general population
130-159 Borderline high
160-189 High
>=190 Very high Performing Location LABORATORY [facility] [place] - [address] [facility] [address]
--- OUTSIDE RECORDS SUMMARY | 2024-04-05 14:42 | External Medical Summary | Summary of Care ---
Author Name Unknown Organization [facility] Address [address] [place] [address] Phone [phone] Care Team Providers Care Sidewalk Repairer Name Role Phone Luda Sakina Valdes DO Primary Care Provider + [phone] Reason for Visit * Reason Comments Follow Up Right hand Encounter Details Date Type Department Care Team (Late st Contact Info) Description 11/25/2023 9:45 AM EDT Office Visit Orthopaedics [facility] 16 [place] [address] Chuy Arteaga MD 16 [place], [place] [id number] Dupuytren's disease of palm of right hand* Allergies No known active allergiesdocumented as of this encounter (statuses as of 11/25/2023) Medications Medication Sig Dispensed Refills Start Date End Date Status Melatonin 5 MG Oral Tablet Take 1 Tablet by mouth at bedtime. 0 Active Aspirin 81 MG Oral Tablet Delayed Release Take 1 Tablet by mouth in the morning. 0 03/04/2023 Active Tylenol PM Extra Strength 500-25 MG Oral Tablet (diphenhydrAMINE-A PAP (sleep)) Take 1 Tablet by mouth at bedtime. 0 Active Tamsulosin HCl 0.4 MG Oral Capsule (Flomax) Take 1 Capsule by mouth in the morning. 100 Capsule 3 05/11/2023 Active Additional Information Patient taking differently:0.4 mg [id number], Reported on 07/08/2023 Sertraline HCl 50 MG [...] before the first meal of the day. 0 08/05/2023 Active Rosuvastatin Calcium 40 MG Oral Tablet (Crestor) Take 1 Tablet by mouth in the morning. 90 Tablet 3 08/04/2023 Active Ezetimibe 10 MG Oral Tablet (Zetia) Take 1 Tablet by mouth daily. 100 Tablet 3 11/09/2023 Active documented as of this encounter (statuses as of 11/25/2023) Active Problems Problem Noted Date Diagnosed Date [...] as of this encounter (statuses as of 11/25/2023) Resolved Problems Problem Noted Date Diagnosed Date Resolved Date Stage 3 chronic kidney disease 07/08/2023 07/23/2023 documented as of this encounter (statuses as of 11/25/2023) Immunizations Name Administration Dates Next Due COVID-19 [...] Past Smokeless Tobacco: Never Comments:Mother smoked in [facility] growing up Alcohol Use Standard [...] money to get more. Never true 08/04/2023 Sex and Gender Information Value Date Recorded Sex Assigned at Male 04/07/2022 8:11 AM EDT Gender Identity Male 04/07/2022 8:11 AM EDT Sexual Orientation Straight 04/07/2022 8: 11 AM EDT Job Start Date Occupation Industry Not on file Not on file Not on file documented as of this encounter Progress Notes * Anna Rowland PA-C - 11/25/2023 12:52 PM EDT Name: Robert Love Date: 11/25/2023 Patient returns today for evaluation of his right hand Dupuytren's contracture. He was last seen inclinic on 05/14/23 and elected to proceed with continued observation at that time. Returns today with complaints of worsening right ring finger contracture. He has hx of small finger surgery at OSH 6 years ago. Interested in discussing possible collagenase injections. Physical Exam: HAND / WRIST / ELBOW EXAM: There were no vitals filed for this visit. There is no height or weight on file to calculate BMI. General: Patient is pleasant and cooperative, oriented to time place and person. Appears stated ageand in no acute distress. No peripheral edema or swelling. Skin intact. Right Hand: well-healed incision, no lesions, erythema, skin discoloration, warmth, or signs of infection. No edema. Palpable pretendinous cord to ring PIP joint with associated 40 degree contracture. Demonstrates gentle digit ROM. Patient is neurovascularly intact distally able to fire ain/pin/ulnar nerves with sensation intact to light touch about median/radial/ulnar nerve distributions and brisk capillary refill. Neuro: motor/sensory grossly intact b/L UE and normal mental status Assessment: Robert Love is a 72 year old male with right hand Dupuytren's contracture for several years. Plan: Palpable cord. Amenable to injections of collagenase. Discussed risks and benefits of intervention including but not limited to: infection, skin breakdown, delayed wound healing, neurovascular injuryand tendon damage. Patient expressed understanding of risks, including difficulty in primary tendonrepair in the event of rupture. The inability of the injection to prevent recurrence or completely rid the patient of all disease (including nodules) was explicitly discussed. The injection procedureand manipulation were discussed in detail. The need for post-injection splinting was also discussed. No contraindications to injection. Will proceed with approval for the medication and contact patient when available for scheduling. This patient was seen and examined with Dr. Chandler MD. in clinic on 11/25/2023. Anna Rowland PA-C [facility] Orthopa[facility]ics [place], [place] [address] [facility] [address] documented in this encounter Plan of Treatment Upcoming Encounters Date Type Department Care Team (Late st Contact Info) Description 12/17/2023 11:20 AM EDT Office Visit Dermatology, [place] [address] [address] [facility] [place] [address] Ping Wilson PA-C [address] [place] [address] [place] [address] 02/29/2024 9:20 AM EDT Office Visit Family Practice [address] [place] [address] 293 [place] [address] Sakina Lares DO 293 [place] [address] 03/01/2024 1:30 PM EDT Imaging [facility] Studies, [facility] [address] 04/06/2024 8:00 AM EDT Office Visit Urology, [facility] 132 [facility] [place] [address] Se Alatorre MD 27 [facility] 270 [place] [address] 04/29/2024 9:00 AM EDT Office Visit Cardiology, [facility] 132 [facility] [place] [address] Virgil Mixon PA-C 132 [facility] [place] [address] 08/05/2024 10:00 AM EST Nurse Only Ancillary 65 [facility] 293 [place] [address] College, Nurse Annual Wellness Visit 65 [facility] 293 [place] [address] Health Maintenance Due Date Last Done Comments Hepatitis C Screening 1966 Cologuard 1993 Fecal Occult Blood Test 1993 Sigmoidoscopy 1993 Hepatitis B (3 of 3 - 19+ 3-dose series) 03/09/2008 01/05/2008, 09/09/2007 GFR 05/05/2024 11/04/2023, 07/13, 03/02/2023, Additional history exists Albumin/Creatinine Ratio 07/08/2024 07/08/2023 CKD HGB USE SMARTSET 29678 07/24/202407/24, 03/24/2023, 03/24/2023, Additional history exists CKD PHOS USE SMARTSET 96627 07/24/2024 07/24/2023 Depression Screening 08/04/2024 08/04/2023 DTaP,Tdap,and Td Vaccines (2 - Td or Tdap) 04/09/2026 04/09/2016 Colonoscopy 12/03/2026 12/03/2016 Colorectal Cancer Screening 12/03/2026 Pneumococcal Vaccine: 65+ Years Completed 04/08/2018, 04/09/2016 Influenza Vaccine (FLU shot) Completed 03/13/2023, 04/07/2022, 04/07/2022, Additional history exists COVID-19 Vaccine Completed 05/04/2023, 05/2022, 10/22/2021, Additional history exists GARDASIL-HPV IMMUNIZATION SERIES Aged Out No longer eligible based on patient's age to complete this topic MENINGOCOCCAL (MENACTRA/MENVEO) Aged Out No longer eligible based on patient's age to complete this topic Zoster Vaccines Discontinued documented as of this encounter Medical Devices Not on filedocumented as of this encounter Visit Diagnoses Diagnosis Dupuytren's disease of palm of right hand- Primary documented in this encounter Care Teams Sidewalk Repairer Relationship Specialty Start Date End Date Sakina Lares DO 293 [place] [address] PCP - General Family Medicine 04/07/22 documented as of this encounter
--- OUTSIDE RECORDS SUMMARY | 2024-04-05 14:42 | External Medical Summary | Summary of Care ---
Author Name Unknown Organization [facility] Address [address] [place] [address] Phone [phone] Care Team Providers Care Field Care Manager Name Role Phone NataliSakina fritz Primary Care Provider + [phone] Encounter Details Date Type Department Care Team (Late st Contact Info) Description 11/22/2023 Patient Reported Data Patient Survey Ortho OBERD Allergies No known active allergiesdocumented as of this encounter (statuses as of 11/22/2023) Medications Medication Sig Dispensed Refills Start Date [...] Active Additional Information Patient taking differently:0.4 mg [id number], Reported on 07/08/2023 Sertraline HCl 50 MG [...] as of this encounter (statuses as of 11/22/2023) Active Problems Problem Noted Date Diagnosed Date [...] as of this encounter (statuses as of 11/22/2023) Resolved Problems Problem Noted Date Diagnosed Date Resolved Date Stage 3 chronic kidney disease 07/08/2023 07/23/2023 documented as of this encounter (statuses as of 11/22/2023) Immunizations Name Administration Dates Next Due COVID-19 mRNA, LNP-s, No Pre serve, 2-Dose Series (Moderna) 08/28/2020,07/31/2020 COVID-19, MRNA-LNP, -24, P F, 30 MCG/0.3 mL, 12 YRS AND ABOVE, IM ([facility]) 05/04/2023 COVID-19, mRNA, LNP-s, PF, B ooster, [...] Past Smokeless Tobacco: Never Comments:Mother smoked in [facility] growing up Alcohol Use Standard Drinks/Week Comments [...] Description 11/25/2023 9:45 AM EDT Office Visit [facility] [place] [address] Chuy Arteaga MD 16 [place] [address] 12/17/2023 11:20 AM EDT Office Visit Dermatology[address] [address] Ping Wilson PA-C [address] [place] [address] [place] [address] 02/29/2024 9:20 AM EDT Office Visit Family Practice [address] [place] [address] 293 [place] [address] Sakina Lares DO 293 [place] [address] 03/01/2024 1:30 PM EDT Imaging Cardiac Studies, [facility] 132 [facility] [address] 04/06/2024 8:00 AM EDT Office Visit Urology, [facility] 132 [facility] [place] [address] Se Alatorre MD 27 [place] [address] [place] [address] 04/29/2024 9:00 AM EDT Office Visit Cardiology, [facility] 132 [facility] [place] [address] Virgil Mixon PA-C 132 [facility] [address] 08/05/2024 10:00 AM EST Nurse Only Ancillary [address] [place] [address] 293 [place] [address] College, Nurse Annual Wellness Visit [address] [place] [address] Health Maintenance Due Date Last Done Comments Hepatitis C Screening 1966 Cologuard 1993 Fecal Occult Blood Test 1993 Sigmoidoscopy 1993 Hepatitis B (3 of 3 - 19+ 3-dose series) 03/09/2008 01/05/2008, 09/09/2007 GFR 05/05/2024 11/04/2023, 07/13, 03/02/2023, Additional history exists Albumin/Creatinine Ratio 07/08/2024 07/08/2023 CKD HGB USE SMARTSET 32401 07/24/202407/24, 03/24/2023, 03/24/2023, Additional history exists CKD PHOS USE SMARTSET 62017 07/24/2024 07/24/2023 Depression Screening 08/04/2024 08/04/2023 DTaP,Tdap,and [...] filedocumented as of this encounter Care Teams Field Care Manager Relationship Specialty Start Date End Date Sakina Lares DO 293 [place] [address] PCP - General Family Medicine 04/07/22 documented as of this encounter
--- OUTSIDE RECORDS SUMMARY | 2024-04-05 14:42 | External Medical Summary | Summary of Care ---
Author Name Unknown Organization [facility] Address [address] [place] [address] Phone [phone] Care Team Providers Care Spike Machine Feeder Name Role Phone NataliSakina fritz Primary Care Provider + [phone] Encounter Details Date Type Department Care Team [...] Active Additional Information Patient taking differently:0.4 mg [id number], Reported on 07/08/2023 Sertraline HCl 50 MG [...] MCG/0.3 mL, 12 YRS AND ABOVE, IM ([facility]) 05/04/2023 COVID-19, mRNA, LNP-s, PF, B ooster, [...] Past Smokeless Tobacco: Never Comments:Mother smoked in [facility] growing up Alcohol Use Standard Drinks/Week [...] [place] [address] Chuy Arteaga MD 16 [place] [address] 12/17/2023 11:20 AM EDT Office Visit Dermatology[address] [address] Ping Wilson PA-C [address] [place] [address] [place] [address] 02/29/2024 9:20 AM EDT Office Visit Family Practice [address] [place] [address] 293 [place] [address] Sakina Lares DO 293 [place] [address] 03/01/2024 1:30 PM EDT Imaging Cardiac Studies, [facility] 132 [facility] [address] 04/06/2024 8:00 AM EDT Office Visit Urology, [facility] 132 [facility] [place] [address] Se Alatorre MD 27 [place] [address] [place] [address] 04/29/2024 9:00 AM EDT Office Visit Cardiology, [facility] 132 [facility] [place] [address] Virgil Mixon PA-C 132 [facility] [address] 08/05/2024 10:00 AM EST Nurse Only Ancillary [address] [place] [address] 293 [facility] [place] [address] College, Nurse Annual Wellness Visit [address] [place] [address] Health Maintenance Due Date Last Done Comments Hepatitis C Screening 1966 Cologuard 1993 Fecal Occult Blood Test 1993 Sigmoidoscopy 1993 Hepatitis B (3 of 3 - 19+ 3-dose series) 03/09/2008 01/05/2008, 09/09/2007 GFR 05/05/2024 11/04/2023, 07/13, 03/02/2023, Additional history exists Albumin/Creatinine Ratio 07/08/2024 07/08/2023 CKD HGB USE SMARTSET 44257 07/24/202407/24, 03/24/2023, 03/24/2023, Additional history exists CKD PHOS USE SMARTSET 77165 07/24/2024 07/24/2023 Depression Screening 08/04/2024 08/04/2023 DTaP,Tdap,and [...] filedocumented as of this encounter Care Teams Spike Machine Feeder Relationship Specialty Start Date End Date Sakina Lares DO 293 [place] [address] PCP - General Family Medicine 04/07/22 documented as of this encounter
--- OUTSIDE RECORDS SUMMARY | 2024-04-05 14:42 | External Medical Summary | Summary of Care ---
Author Name Unknown Organization [facility] Address [address] [place] [address] Phone [phone] Care Team Providers Care Surveillance Manager Name Role Phone NataliSakina fritz Primary Care Provider + [phone] Encounter Details Date Type Department Care Team [...] Active Additional Information Patient taking differently:0.4 mg [id number], Reported on 07/08/2023 Sertraline HCl 50 MG [...] MCG/0.3 mL, 12 YRS AND ABOVE, IM ([facility]) 05/04/2023 COVID-19, mRNA, LNP-s, PF, B [...] Past Smokeless Tobacco: Never Comments:Mother smoked in [facility] growing up Alcohol Use Standard [...] [place] [address] Chuy Arteaga MD 16 [place] [address] 12/17/2023 11:20 AM EDT Office Visit Dermatology[address] [address] Ping Wilson PA-C [address] [place] [address] [place] [address] 02/29/2024 9:20 AM EDT Office Visit Family Practice [address] [place] [address] 293 [place] [phone] Sakina Lares DO 293 [place] [address] 03/01/2024 1:30 PM EDT Imaging Cardiac Studies, [facility] 132 [facility] [place] [address] 04/06/2024 8:00 AM EDT Office Visit Urology, [facility] 132 [facility] [place] [address] Se Alatorre MD [address] [place] [address] [place] [address] 04/29/2024 9:00 AM EDT Office Visit Cardiology, [facility] 132 [facility] [place] [address] Virgil Mixon PA-C 132 [facility] [address] 08/05/2024 10:00 AM EST Nurse Only Ancillary [address] [place] [address] 293 [place] [address] College, Nurse Annual Wellness Visit [address] [place] [address] Health Maintenance Due Date Last Done Comments Hepatitis C Screening 1966 Cologuard 1993 Fecal Occult Blood Test 1993 Sigmoidoscopy 1993 Hepatitis B (3 of 3 - 19+ 3-dose series) 03/09/2008 01/05/2008, 09/09/2007 GFR 05/05/2024 11/04/2023, 07/13, 03/02/2023, Additional history exists Albumin/Creatinine Ratio 07/08/2024 07/08/2023 CKD HGB USE SMARTSET 09197 07/24/202407/24, 03/24/2023, 03/24/2023, Additional history exists CKD PHOS USE SMARTSET 25008 07/24/2024 07/24/2023 Depression Screening 08/04/2024 08/04/2023 DTaP,Tdap,and [...] filedocumented as of this encounter Care Teams Surveillance Manager Relationship Specialty Start Date End Date Sakina Lares DO 293 [place] [address] PCP - General Family Medicine 04/07/22 documented as of this encounter
--- OUTSIDE RECORDS SUMMARY | 2024-04-05 14:42 | External Medical Summary | Summary of Care ---
Author Name Unknown Organization [facility] Address [address] [place] [address] Phone [phone] Care Team Providers Care Upholsterer Limousine And Hearse Name Role Phone NataliSakina fritz Primary Care Provider + [phone] Encounter Details Date Type Department Care Team [...] Active Additional Information Patient taking differently:0.4 mg [id number], Reported on 07/08/2023 Sertraline HCl 50 MG [...] MCG/0.3 mL, 12 YRS AND ABOVE, IM ([facility]) 05/04/2023 COVID-19, mRNA, LNP-s, PF, B ooster, [...] Past Smokeless Tobacco: Never Comments:Mother smoked in [facility] growing up Alcohol Use Standard Drinks/Week Comments [...] [place] [address] Chuy Arteaga MD 16 [place] [address] 12/17/2023 11:20 AM EDT Office Visit Dermatology[address] [address] Ping Wilson PA-C [address] [place] [address] [place] [address] 02/29/2024 9:20 AM EDT Office Visit Family Practice [address] [place] [address] 293 [place] [phone] Sakina Lares DO 293 [place] [address] 03/01/2024 1:30 PM EDT Imaging Cardiac Studies, [facility] 132 [facility] [place] [address] 04/06/2024 8:00 AM EDT Office Visit Urology, [facility] 132 [facility] [place] [address] Se Alatorre MD [address] [place] [address] [place] [address] 04/29/2024 9:00 AM EDT Office Visit Cardiology, [facility] 132 [facility] [place] [address] Virgil Mixon PA-C 132 [facility] [place] [address] 08/05/2024 10:00 AM EST Nurse Only Ancillary [address] [place] [address] 293 [facility] [place] [address] College, Nurse Annual Wellness Visit [address] [place] [address] Health Maintenance Due Date Last Done Comments Hepatitis C Screening 1966 Cologuard 1993 Fecal Occult Blood Test 1993 Sigmoidoscopy 1993 Hepatitis B (3 of 3 - 19+ 3-dose series) 03/09/2008 01/05/2008, 09/09/2007 GFR 05/05/2024 11/04/2023, 07/13, 03/02/2023, Additional history exists Albumin/Creatinine Ratio 07/08/2024 07/08/2023 CKD HGB USE SMARTSET 70163 07/24/202407/24, 03/24/2023, 03/24/2023, Additional history exists CKD PHOS USE SMARTSET 84455 07/24/2024 07/24/2023 Depression Screening 08/04/2024 08/04/2023 DTaP,Tdap,and [...] filedocumented as of this encounter Care Teams Upholsterer Limousine And Hearse Relationship Specialty Start Date End Date Sakina Lares DO 293 [place] [address] PCP - General Family Medicine 04/07/22 documented as of this encounter
--- OUTSIDE RECORDS SUMMARY | 2024-04-05 14:42 | External Medical Summary | Summary of Care ---
Author Name Unknown Organization [facility] Address [address] [place] [address] Phone [phone] Care Team Providers Care Power Tool Repair Technician Name Role Phone NataliSakina fritz Primary Care Provider + [phone] Encounter Details Date Type Department Care Team [...] Active Additional Information Patient taking differently:0.4 mg [id number], Reported on 07/08/2023 Sertraline HCl 50 MG [...] MCG/0.3 mL, 12 YRS AND ABOVE, IM ([facility]) 05/04/2023 COVID-19, mRNA, LNP-s, PF, B ooster, [...] Past Smokeless Tobacco: Never Comments:Mother smoked in [facility] growing up Alcohol Use Standard [...] [place] [address] Chuy Arteaga MD 16 [place] [address] 12/17/2023 11:20 AM EDT Office Visit Dermatology[address] [address] Ping Wilson PA-C [address] [place] [address] [place] [address] 02/29/2024 9:20 AM EDT Office Visit Family Practice [address] [place] [address] 293 [place] [address] Sakina Lares DO 293 [place] [address] 03/01/2024 1:30 PM EDT Imaging Cardiac Studies, [facility] 132 [facility] [place] [address] 04/06/2024 8:00 AM EDT Office Visit Urology, [facility] 132 [facility] [place] [address] Se Alatorre MD [address] [place] [address] [place] [address] 04/29/2024 9:00 AM EDT Office Visit Cardiology, [facility] 132 [facility] [place] [address] Virgil Mixon PA-C 132 [facility] [address] 08/05/2024 10:00 AM EST Nurse Only Ancillary [address] [place] [address] 293 [place] [address] College, Nurse Annual Wellness Visit [address] [place] [address] Health Maintenance Due Date Last Done Comments Hepatitis C Screening 1966 Cologuard 1993 Fecal Occult Blood Test 1993 Sigmoidoscopy 1993 Hepatitis B (3 of 3 - 19+ 3-dose series) 03/09/2008 01/05/2008, 09/09/2007 GFR 05/05/2024 11/04/2023, 07/13, 03/02/2023, Additional history exists Albumin/Creatinine Ratio 07/08/2024 07/08/2023 CKD HGB USE SMARTSET 93848 07/24/202407/24, 03/24/2023, 03/24/2023, Additional history exists CKD PHOS USE SMARTSET 39370 07/24/2024 07/24/2023 Depression Screening 08/04/2024 08/04/2023 DTaP,Tdap,and [...] filedocumented as of this encounter Care Teams Power Tool Repair Technician Relationship Specialty Start Date End Date Sakina Lares DO 293 [place] [address] PCP - General Family Medicine 04/07/22 documented as of this encounter
--- OUTSIDE RECORDS SUMMARY | 2024-04-05 14:42 | External Medical Summary | Summary of Care ---
Author Name Unknown Organization [facility] Address [address] [place] [address] Phone [phone] Prov[address] Care Ct Scan Special Procedures Technologist Name Role Phone NataliSakina fritz Primary Care Provider + [phone] Encounter Details Date Type Department Care Team (Late st Contact Info) Description 01/05/2024 Telephone Orthopaedics [facility] [address] [place] [address] Chuy Arteaga MD 16 [place] [address] Allergies No known active allergiesdocumented as of this encounter (statuses as of 01/08/2024) Medications Medication Sig Dispensed Refills Start Date [...] Active Additional Information Patient taking differently:0.4 mg [id number], Reported on 07/08/2023 Sertraline HCl 50 MG [...] as of this encounter (statuses as of 01/08/2024) Active Problems Problem Noted Date Diagnosed Date [...] as of this encounter (statuses as of 01/08/2024) Resolved Problems Problem Noted Date Diagnosed Date Resolved Date Stage 3 chronic kidney disease 07/08/2023 07/23/2023 documented as of this encounter (statuses as of 01/08/2024) Immunizations Name Administration Dates Next Due COVID-19 [...] Past Smokeless Tobacco: Never Comments:Mother smoked in [facility] growing up Alcohol Use Standard Drinks/Week [...] No 08/04/2023 Does the household have a [facility] source of income? (Household - for ages [...] encounter Miscellaneous Notes * Telephone Encounter - Parviz Espino OSA - 01/08/2024 1:41 PM EDT Spoke to his , arnol, they want to explore surgical options so scheduled them for 06/08 and added to fast pass for dr arteaga. * Telephone Encounter - Teresa Leary RN - 01/07/2024 2:40 PM EDT Spoke to pt about collagenase returned his call , he had questions about this versus surgery I advised him that if he had questions about both of these and was not clear on the treatment options thathe should probably be rescheduled to come back into to discuss with Dr Arteaga he will discuss with his and be in contact with us Teresa Leary RN ONC Hand and Microsurgery Upper Extremity Nurse Coordinator * Telephone Encounter - Nicole Gale OSA - 01/06/2024 10:42 AM EDT Pt calling requesting a call back to discuss what exactly is injected due to warnings. Please call. * Telephone Encounter - Teresa Leary RN - 01/05/2024 1:42 PM EDT Spoke to Prior Authorization approved for 3 visits for right ring finger until 12/24/24 He has 20% co-insurance with out pocket maximum of $7550 of which $271 is met. She is aware of the same Will discuss with pt and they have our number to call back if he wishes to proceed. Teresa Leary RN ONC Hand and Microsurgery Upper Extremity Nurse Coordinator * Telephone Encounter - Jomar Martin OSA - 01/05/2024 1:32 PM EDT Pt spouse is calling to schedule an appt for Xiaflex injection. She may be reached at [phone] documented in this encounter Plan of Treatment Upcoming Encounters Date Type Department Care Team (Late st Contact Info) Description 02/17/2024 11:15 AM EDT Office Visit Orthopaedics [facility] [address] [place] [address] Carlito Mackay PA-C [address] [place] [address] 02/24/2024 11:15 AM EDT Office Visit Orthopaedics [facility] 132 [facility] [place] [address] Carlito Mackay PA-C [facility] [place] [address] 02/29/2024 9:20 AM EDT Office Visit Family [address] 293 [place] [address] Sakina Lares DO 293 [place] [address] 03/01/2024 1:30 PM EDT Imaging Cardiac Studies, [facility] 132 [facility] [place] [address] 03/02/2024 11:15 AM EDT Office Visit Orthopaedics [facility] 132 [facility] [place] [address] Carlito Mackay PA-C 132 [facility] [place] [address] 04/06/2024 8:00 AM EDT Office Visit Urology, [facility] 132 [facility] [place] [address] Se Alatorre MD [address] [place] [address] 04/29/2024 9:00 AM EDT Office Visit Cardiology, [facility] 132 [facility] [place] [address] Virgil Mixon PA-C [address] [place] [address] 06/08/2024 9:15 AM EST Office Visit Orthopaedics [facility] 16 [place] [address] Chuy Arteaga MD 16 [place] [address] 08/05/2024 10:00 AM EST Nurse Only Ancillary 65 [facility] 293 [place] [address] College, Nurse Annual Wellness Visit [address] [address] 09/21/2024 7:40 AM EDT Office Visit Dermatology [facility] 68 [place] [address] Jez Pretty PA-C 68 [place] [address] Health Maintenance Due Date Last Done Comments Hepatitis C Screening 1968 Hepatitis B (3 of 3 - 19+ 3-dose series) 03/09/2008 01/05/2008, 09/09/2007 COVID-19 Vaccine ( season) 2023 05/04/2023, 04/22/2022, 10/22/2021, Additional history exists GFR 05/05/2024 11/04/2023, 07/13, 03/02/2023, Additional history exists Albumin/Creatinine Ratio 07/08/2024 07/08/2023 CKD HGB USE SMARTSET 44313 07/24/202407/24, 03/24/2023, 03/24/2023, Additional history exists CKD PHOS USE SMARTSET 84084 07/24/2024 07/24/2023 Depression Screening 08/04/2024 08/04/2023 DTaP,Tdap,and Td Vaccines (2 - Td or Tdap) 04/09/2026 04/09/2016 Colonoscopy Discontinued 12/03/2016 Colorectal Cancer Screening Discontinued Pneumococcal Vaccine: 65+ Years Completed 04/08/2018, 04/09/2016 Influenza Vaccine (FLU shot) Completed 03/13/2023, 04/07/2022, 04/07/2022, Additional history exists Cologuard Discontinued Fecal Occult Blood Test Discontinued GARDASIL-HPV IMMUNIZATION SERIES Aged Out No longer eligible based on patient's age to complete this topic MENINGOCOCCAL (MENACTRA/MENVEO) Aged Out No longer eligible based on patient's age to complete this topic Sigmoidoscopy Discontinued Zoster Vaccines Discontinued documented as of this encounter Medical Devices Not on filedocumented as of this encounter Care Teams Ct Scan Special Procedures Technologist Relationship Specialty Start Date End Date Sakina Lares DO PCP - General Family Medicine 04/07/22 documented as of this encounter
--- OUTSIDE RECORDS SUMMARY | 2024-04-05 14:42 | External Medical Summary | Summary of Care ---
Author Name Unknown Organization [facility] Address [address] [place] [address] Phone [phone] Care Team Providers Care Vocational Psychologist Name Role Phone LudaMirellabirdie Valdes DO Primary Care Provider + [phone] Reason for Visit * Reason Onset Date Comments Information 01/11/2024 Collagenase inje ction Encounter Details Date Type Department Care Team (Late st Contact Info) Description 01/11/2024 Telephone Orthopaedics [facility] 16 [place] [address] Teresa Leary RN 16 [place] [address] Information (Collagenase injection ) Allergies No known active allergiesdocumented as of this encounter (statuses as of 01/11/2024) Medications Medication Sig Dispensed Refills Start Date [...] Active Additional Information Patient taking differently:0.4 mg [id number], Reported on 07/08/2023 Sertraline HCl 50 MG [...] as of this encounter (statuses as of 01/11/2024) Active Problems Problem Noted Date Diagnosed Date [...] as of this encounter (statuses as of 01/11/2024) Resolved Problems Problem Noted Date Diagnosed Date Resolved Date Stage 3 chronic kidney disease 07/08/2023 07/23/2023 documented as of this encounter (statuses as of 01/11/2024) Immunizations Name Administration Dates Next Due COVID-19 [...] Past Smokeless Tobacco: Never Comments:Mother smoked in [facility] growing up Alcohol Use Standard [...] No 08/04/2023 Does the household have a [facility] source of income? (Household - for ages [...] encounter Miscellaneous Notes * Telephone Encounter - Ambreen Shelton OSA - 01/11/2024 2:59 PM EDT PT IS SCHEDULED JACKIE Corrales * Telephone Encounter - Teresa Leary RN - 01/11/2024 2:20 PM EDT Spoke to pt Informed him of this information re collagenase injection Prior Authorization approved for 3 visitsfor right ring finger until 12/24/24 He has 20% co-insurance with out pocket maximum of $7550 of which $271 is met. He is not on any blood thinners and wishes to proceed He wishes to proceed Appts Schedule him for Dr Arteaga 04/21 at 9 45 collagenase injection one vial of med Manip 04/28 at 10 30 Teresa Leary RN ONC Hand and Microsurgery Upper Extremity Nurse Coordinator documented in this encounter Plan of Treatment Upcoming Encounters Date Type Department Care Team (Late st Contact Info) Description 02/17/2024 11:15 AM EDT Office Visit [facility] 132 [facility] [place] [address] Carlito Mackay PA-C [address] [place] [address] 02/24/2024 11:15 AM EDT Office Visit [facility] 132 [facility] [place] [address] Carlito Mackay PA-C [facility] [place] [address] 02/29/2024 9:20 AM EDT Office Visit Family Practice [address] [place] [address] 293 [facility] [address] Sakina Lares DO 293 [place] [address] 03/01/2024 1:30 PM EDT Imaging Cardiac Studies, [facility] 132 [facility] [place] [address] 03/02/2024 11:15 AM EDT Office Visit [facility] 132 [facility] [place] [address] Carlito Mackay PA-C 132 [place] [address] 04/06/2024 8:00 AM EDT Office Visit Urology, [facility] [address] [facility] [place] [address] Se Alatorre MD 27 [place] [address] 04/21/2024 9:45 AM EDT [facility] 16 [place] [address] Chuy Arteaga MD 16 [place] [address] 04/28/2024 10:30 AM EDT [facility] 16 [place] [address] hCuy Arteaga MD 16 [place] [address] 04/29/2024 9:00 AM EDT Office Visit Cardiology, [facility] [address] [place] [address] Virgil Mixon PA-C [facility] [address] 06/08/2024 9:15 AM EST [facility] 16 [place] [address] Chuy Arteaga MD 16 [place] [address] 08/05/2024 10:00 AM EST Nurse Only Ancillary [address] [place] [address] 293 [facility] [address] College, Nurse Annual Wellness Visit [address] [place], [place] [address] [address] 09/21/2024 7:40 AM EDT Office Visit Dermatology [facility] 68 [place] [address] Jez Pretty PA-C [facility] [place] [address] Health Maintenance Due Date Last Done Comments Hepatitis C Screening 1968 Hepatitis B (3 of 3 - 19+ 3-dose series) 03/09/2008 01/05/2008, 09/09/2007 COVID-19 Vaccine ( season) 2023 05/04/2023, 04/22/2022, 10/22/2021, Additional history exists Influenza Vaccine (FLU shot) (#1) 2024 03/13/2023, 04/07/2022, 04/07/2022, Additional history exists GFR 05/05/2024 11/04/2023, 07/13, 03/02/2023, Additional history exists Albumin/Creatinine Ratio 07/08/2024 07/08/2023 CKD HGB USE SMARTSET 90955 07/24/202407/24, 03/24/2023, 03/24/2023, Additional history exists CKD PHOS USE SMARTSET 52558 07/24/2024 07/24/2023 Depression Screening 08/04/2024 08/04/2023 DTaP,Tdap,and [...] filedocumented as of this encounter Care Teams Vocational Psychologist Relationship Specialty Start Date End Date Sakina Lares DO PCP - General Family Medicine 04/07/22 documented as of this encounter
--- OUTSIDE RECORDS SUMMARY | 2024-04-05 14:42 | External Medical Summary | Summary of Care ---
Author Name Unknown Organization [facility] Address [address] [place] [address] Phone [phone] Care Team Providers Care Unit Educator Name Role Phone Sakina Lares DO Primary Care Provider Reason for Visit * Reason Onset Date Comments Med Request 12/15/2023 Encounter Details Date Type Department Care Team (Late st Contact Info) Description 12/15/2023 Telephone Orthopaedics [facility] [address] [place] [address] Carlito Mackay PA-C [address] [place] [address] Med Request Allergies No known active allergiesdocumented as of this encounter (statuses as of 12/15/2023) Medications Medication Sig Dispensed Refills Start Date [...] Active Additional Information Patient taking differently:0.4 mg [id number], Reported on 07/08/2023 Sertraline HCl 50 MG [...] as of this encounter (statuses as of 12/15/2023) Active Problems Problem Noted Date Diagnosed Date [...] as of this encounter (statuses as of 12/15/2023) Resolved Problems Problem Noted Date Diagnosed Date Resolved Date Stage 3 chronic kidney disease 07/08/2023 07/23/2023 documented as of this encounter (statuses as of 12/15/2023) Immunizations Name Administration Dates Next Due COVID-19 [...] Past Smokeless Tobacco: Never Comments:Mother smoked in [facility] growing up Alcohol Use Standard Drinks/Week [...] encounter Miscellaneous Notes * Telephone Encounter - Jesica Platt MED ASSIST - 12/15/2023 3:23 PM EDT Called patients insurance, spoke with rep named Ana, call started at 1517. Advised her to check if auth is needed for Gelsyn injections for GH joint. She verified that code [id number] does not require prior authorization and is a valid billable code so can be injected into any body part. Call ended at 1522, ref# [id number] * Telephone Encounter - Jesica Platt MED ASSIST - 12/15/2023 3:23 PM EDT ----- Message from Jesica Navarro sent at 12/15/2023 8:41 AM EDT ----- ----- Message ----- From: Carlito Mackay PA-C Sent: 12/15/2023 12:00 AM EDT To: [facility] Orth[facility] Nurse Pool/Class Will need Gelsyn-3 series approved for the left glenohumeral joint to be given after 01/14/2024 by our sports Medicine team ultrasound guidance documented in this encounter Plan of Treatment Upcoming Encounters Date Type Department Care Team (Late st Contact Info) Description 02/17/2024 11:15 AM EDT Office Visit Orthopaedics [facility] [address] [place] [address] Carlito Mackay PA-C [address] [place] [address] 02/24/2024 11:15 AM EDT Office Visit Orthopaedics [facility] [address] [place] [address] Carlito Mackay PA-C [address] [facility] [place] [address] 02/29/2024 9:20 AM EDT Office Visit Family Practice 65 [facility] 293 [facility] [address] Sakina Lares DO 293 [place] [address] 03/01/2024 1:30 PM EDT Imaging Cardiac Studies, [facility] 132 [facility] [place] [address] 03/02/2024 11:15 AM EDT Office Visit Orthopaedics [facility] 132 [facility] [place] [address] Carlito Mackay PA-C [address] [facility] [place] [address] 04/06/2024 8:00 AM EDT Office Visit Urology, [facility] 132 [facility] [place] [address] Se Alatorre MD [address] [facility] [address] [place] [address] 04/29/2024 9:00 AM EDT Office Visit Cardiology, [facility] 132 [facility] [address] Virgil Mixon PA-C [address] [facility] [address] 08/05/2024 10:00 AM EST Nurse Only Ancillary [facility] 293 [facility] [address] College, Nurse Annual Wellness Visit [address] [place] [address], [place] [address] Health Maintenance Due Date Last Done Comments Hepatitis C Screening 1968 Cologuard 1993 Fecal Occult Blood Test 1993 Sigmoidoscopy 1993 Hepatitis B (3 of 3 - 19+ 3-dose series) 03/09/2008 01/05/2008, 09/09/2007 COVID-19 Vaccine ( season) 2023 05/04/2023, 04/22/2022, 10/22/2021, Additional history exists GFR 05/05/2024 11/04/2023, 07/13, 03/02/2023, Additional history exists Albumin/Creatinine Ratio 07/08/2024 07/08/2023 CKD HGB USE SMARTSET 01168 07/24/202407/24, 03/24/2023, 03/24/2023, Additional history exists CKD PHOS USE SMARTSET 86211 07/24/2024 07/24/2023 Depression Screening 08/04/2024 08/04/2023 DTaP,Tdap,and Td Vaccines (2 - Td or Tdap) 04/09/2026 04/09/2016 Colonoscopy 12/03/2026 12/03/2016 Colorectal Cancer Screening 12/03/2026 Pneumococcal Vaccine: 65+ Years Completed 04/08/2018, 04/09/2016 Influenza Vaccine (FLU shot) Completed 03/13/2023, 04/07/2022, 04/07/2022, Additional history exists GARDASIL-HPV IMMUNIZATION SERIES Aged Out No longer eligible based on patient's age to complete this topic MENINGOCOCCAL (MENACTRA/MENVEO) Aged Out No longer eligible based on patient's age to complete this topic Zoster Vaccines Discontinued documented as of this encounter Medical Devices Not on filedocumented as of this encounter Care Teams Unit Educator Relationship Specialty Start Date End Date Sakina Lares DO 293 [place] [address] PCP - General Family Medicine 04/07/22 documented as of this encounter
--- OUTSIDE RECORDS SUMMARY | 2024-04-05 14:42 | External Medical Summary | Summary of Care ---
Author Name Unknown Organization [facility] Address [address] [place] [address] Phone [phone] Care Team Providers Care Amplifier Mechanic Name Role Phone NataliSakina fritz Primary Care Provider + [phone] Encounter Details Date Type Department Care Team [...] Active Additional Information Patient taking differently:0.4 mg [id number], Reported on 07/08/2023 Sertraline HCl 50 MG [...] MCG/0.3 mL, 12 YRS AND ABOVE, IM ([facility]) 05/04/2023 COVID-19, mRNA, LNP-s, PF, B ooster, [...] Past Smokeless Tobacco: Never Comments:Mother smoked in [facility] growing up Alcohol Use Standard Drinks/Week [...] [place] [address] Chuy Arteaga MD 16 [place] [address] 12/17/2023 11:20 AM EDT Office Visit Dermat[address] [address] Ping Wilson PA-C [address] [place] [address] [place] [address] 02/29/2024 9:20 AM EDT Office Visit Family Practice [address] [place] [address] 293 [place] [address] Sakina Lares DO 293 [place] [address] 03/01/2024 1:30 PM EDT Imaging Cardiac Studies, [facility] [address] 04/06/2024 8:00 AM EDT Office Visit Urology, [facility] 132 [facility] [place] [address] Se Alatorre MD [address] [address] [place] [address] 04/29/2024 9:00 AM EDT Office Visit Cardiology, [facility] 132 [facility] [place] [address] Virgil Mixon PA-C 132 [facility] [address] 08/05/2024 10:00 AM EST Nurse Only Ancillary [address] [place] [address] 293 [place] [address] College, Nurse Annual Wellness Visit [address] [place] [address] Health Maintenance Due Date Last Done Comments Hepatitis C Screening 1968 Cologuard 1993 Fecal Occult Blood Test 1993 Sigmoidoscopy 1993 Hepatitis B (3 of 3 - 19+ 3-dose series) 03/09/2008 01/05/2008, 09/09/2007 GFR 05/05/2024 11/04/2023, 07/13, 03/02/2023, Additional history exists Albumin/Creatinine Ratio 07/08/2024 07/08/2023 CKD HGB USE SMARTSET 30388 07/24/202407/24, 03/24/2023, 03/24/2023, Additional history exists CKD PHOS USE SMARTSET 21809 07/24/2024 07/24/2023 Depression Screening 08/04/2024 08/04/2023 DTaP,Tdap,and [...] filedocumented as of this encounter Care Teams Amplifier Mechanic Relationship Specialty Start Date End Date Sakina Lares DO [address] [place] [address] PCP - General Family Medicine 04/07/22 documented as of this encounter
--- OUTSIDE RECORDS SUMMARY | 2024-04-05 14:42 | External Medical Summary | Summary of Care ---
Author Name Unknown Organization [facility] Address [address] [place] [facility] [place] [place] [address] Phone [phone] Care Team Providers Care Repairer Wood Furniture Name Role Phone Sakina Lares DO Primary Care Provider [phone] Reason for Visit * Reason Comments Follow Up L shoulder Encounter Details Date Type Department Care Team (Latest Contact Info) Description 02/19/2024 10:15 AM EDT Office Visit Orthopaedics [facility] [address] [place] [address] Carlito Mackay PA-C [address] [place] [address] Primary osteoarthritis of right knee* Allergies No [...] Active Additional Information Patient taking differently:0.4 mg [id number], Reported on 07/08/2023 Sertraline HCl 50 MG [...] Medial joint space narrowing. He has not onzn-ed-aluc but it is certainly advancing. He does [...] interested in ultrasound guidance with our sports Medicine team and I can help facilitate that follow-up 6 months or greater from yesterday's 3rd injection gelshot for his left shoulder. The patient has [...] called to verify the correctpatient, procedure, equipment, production support developer and site/side marked as required. Patient was prepped and draped in the usual sterile fashion. This chart was completed in part utilizing [employer] Speech Voice Recognition Software. Grammatical errors, random [...] 02/24/2024 11:15 AM EDT Office Visit Orthopaedics [facility] [place] [address] Carlito Mackay PA-C 132 [facility] [place] [address] 02/29/2024 9:20 AM EDT Office Visit Family Practice [address] [place] [address], [place] 293 [facility] [place] [address] Sakina Lares DO 293 [place] [address] 03/01/2024 1:30 PM EDT Imaging Cardiac Studies, [facility] [place] [address] 03/02/2024 11:15 AM EDT Office Visit Orthopaedics [facility] 132 [place] [address] Carlito Mackay PA-C 132 [place] [address] 04/06/2024 8:00 AM EDT Office Visit Urology, [facility] 132 [place] [address] Se Alatorre MD 27 [place] [address] 04/07/2024 8:00 AM EDT Office Visit [facility] 16 [place] [address] Chuy Arteaga MD 16 [place] [address] 04/14/2024 8:00 AM EDT Office Visit [facility] 16 [place] [address] Chuy Arteaga MD 16 [place] [address] 04/29/2024 9:00 AM EDT Office Visit Cardiology, [facility] 132 [facility] [place] [address] Virgil Mixon PA-C 132 [facility] [address] 08/05/2024 10:00 AM EST Nurse Only Ancillary 65 [facility] 293 [facility] [place] [address] College, Nurse Annual Wellness Visit [address] [place] [address] 09/21/2024 7:40 AM EDT Office Visit Dermatology [facility] 68 [place] [address] Jez Pretty PA-C 68 [place] [address] Health Maintenance Due Date Last Done Comments Hepatitis C Screening 1968 Hepatitis B Vaccine (3 of 3 - 19+ 3-dose series) 03/09/2008 01/05/2008, 09/09/2007 COVID-19 Vaccine ( season) 2023 05/04/2023, 04/22/2022, 10/22/2021, Additional history exists Influenza Vaccine (FLU shot) (#1) 2024 03/13/2023, 04/07/2022, 04/07/2022, Additional history exists GFR 05/05/2024 11/04/2023, 07/13, 03/02/2023, Additional history exists Albumin/Creatinine Ratio 07/08/2024 07/08/2023 CKD HGB USE SMARTSET 65430 07/24/202407/24, 03/24/2023, 03/24/2023, Additional history exists CKD PHOS USE SMARTSET 66985 07/24/2024 07/24/2023 Adult Wellness Visit 08/04/2024 08/04/2023 [...] Procedure Name Priority Date/Time Associated Diagnosis Comments IA ARTHROCENTESIS ASPIR&/INJ MAJOR JT/BURSA W/O US Routine 02/19/2024 10:15 AM EDT Primary osteoarthritis of right knee documented in this encounter Results * IA ARTHROCENTESIS ASPIR&/INJ MAJOR JT/BURSA W/O US (02/19/2024 [...] to verify the correct patient, procedure, equipment, production support developer and site/side marked as required. Patient was [...] Right documented in this encounter Care Teams Repairer Wood Furniture Relationship Specialty Start Date End Date Sakina Lares DO PCP - General Family Medicine 04/07/22 documented as of this encounter
--- OUTSIDE RECORDS SUMMARY | 2024-04-05 14:42 | External Medical Summary | Summary of Care ---
Author Name Unknown Organization [facility] Address [address] [place] [address] Phone [phone] Care Team Providers Care Qualitative Field Coordinator Name Role Phone NataliSakina fritz Primary Care Provider + [phone] Encounter Details Date Type Department Care Team (Late st Contact Info) Description 01/05/[address] [facility] [address] [place] [address] Chuy Arteaga MD [address] [place] [address] Allergies No known active allergiesdocumented as of this encounter (statuses as of 01/07/2024) Medications Medication Sig Dispensed Refills Start Date [...] Active Additional Information Patient taking differently:0.4 mg [id number], Reported on 07/08/2023 Sertraline HCl 50 MG [...] as of this encounter (statuses as of 01/07/2024) Active Problems Problem Noted Date Diagnosed Date [...] as of this encounter (statuses as of 01/07/2024) Resolved Problems Problem Noted Date Diagnosed Date Resolved Date Stage 3 chronic kidney disease 07/08/2023 07/23/2023 documented as of this encounter (statuses as of 01/07/2024) Immunizations Name Administration Dates Next Due COVID-19 [...] Past Smokeless Tobacco: Never Comments:Mother smoked in [facility] growing up Alcohol Use Standard [...] No 08/04/2023 Does the household have a [facility] source of income? (Household - for ages [...] encounter Miscellaneous Notes * Telephone Encounter - Teresa Leary RN [...] Xiaflex injection. She may be reached at [phone] documented in this encounter Plan of Treatment Upcoming Encounters Date Type Department Care Team (Late st Contact Info) Description 02/17/2024 11:15 AM EDT Office Visit Orthopaedics [facility] [address] [place] [address] Carlito Mackay PA-C [address] [address] 02/24/2024 11:15 AM EDT Office Visit Orthopaedics [facility] [address] [address] Carlito Mackay PA-C [address] [place] [address] 02/29/2024 9:20 AM EDT Office Visit Family Practice 65 [facility] 293 [facility], [place] [address] Sakina Lares DO 293 [facility], [place] [address] 03/01/2024 1:30 PM EDT Imaging Cardiac Studies, [facility] 132 [facility] [place] [address] 03/02/2024 11:15 AM EDT Office Visit Orthopaedics [facility] 132 [facility] [place] [address] Carlito Mackay PA-C 132 [facility] [place] [address] 04/06/2024 8:00 AM EDT Office Visit Urology, [facility] 132 [facility] [place] [address] Se Alatorre MD [address] [place] [address] 04/29/2024 9:00 AM EDT Office Visit Cardiology, [facility] 132 [facility] [place] [address] Virgil Mixon PA-C 132 [facility] [place] [address] 08/05/2024 10:00 AM EST Nurse Only Ancillary 65 [facility] 293 [facility], [place] [address] College, Nurse Annual Wellness Visit [address], [place] [address] 09/21/2024 7:40 AM EDT Office Visit Dermatology [address] [place] [phone] Jez Pretty PA-C [address] [place] [address] Health Maintenance Due Date Last Done Comments Hepatitis C Screening 1968 Hepatitis B (3 of 3 - 19+ 3-dose series) 03/09/2008 01/05/2008, 09/09/2007 COVID-19 Vaccine ( season) 2023 05/04/2023, 04/22/2022, 10/22/2021, Additional history exists GFR 05/05/2024 11/04/2023, 07/13, 03/02/2023, Additional history exists Albumin/Creatinine Ratio 07/08/2024 07/08/2023 CKD HGB USE SMARTSET 44037 07/24/202407/24, 03/24/2023, 03/24/2023, Additional history exists CKD PHOS USE SMARTSET 05702 07/24/2024 07/24/2023 Depression Screening 08/04/2024 08/04/2023 DTaP,Tdap,and [...] filedocumented as of this encounter Care Teams Qualitative Field Coordinator Relationship Specialty Start Date End Date Sakina Lares DO PCP - General Family Medicine 04/07/22 documented as of this encounter
--- OUTSIDE RECORDS SUMMARY | 2024-04-05 14:42 | External Medical Summary | Summary of Care ---
Author Name Unknown Organization [facility] Address [address] [place] [address] Phone [phone] Care Team Providers Care Body Mechanic Apprentice Name Role Phone NataliSakina fritz Primary Care Provider + [phone] Encounter Details Date Type Department Care Team [...] Active Additional Information Patient taking differently:0.4 mg [id number], Reported on 07/08/2023 Sertraline HCl 50 MG [...] mL, 12 YRS AND ABOVE, IM ([facility]) 05/04/2023 COVID-19, mRNA, LNP-s, PF, B [...] Past Smokeless Tobacco: Never Comments:Mother smoked in [facility] growing up Alcohol Use Standard [...] [place] [address] Chuy Arteaga MD 16 [place] [address] 12/17/2023 11:20 AM EDT Office Visit Dermatology[address] [address] Ping Wilson PA-C [address] [place] [address] [place] [address] 02/29/2024 9:20 AM EDT Office Visit Family Practice [address] [place] [address] 293 [place] [address] Sakina Lares DO 293 [place] [address] 03/01/2024 1:30 PM EDT Imaging Cardiac Studies, [facility] 132 [facility] [address] 04/06/2024 8:00 AM EDT Office Visit Urology, [facility] 132 [facility] [place] [address] Se Alatorre MD [address] [address] [place] [address] 04/29/2024 9:00 AM EDT Office Visit Cardiology, [facility] 132 [facility] [place] [address] Virgil Mixon PA-C 132 [facility] [address] 08/05/2024 10:00 AM EST Nurse Only Ancillary [address] [place] [address] 293 [place] [address] College, Nurse Annual Wellness Visit [address] [place] [address] Health Maintenance Due Date Last Done Comments Hepatitis C Screening 1968 Cologuard 1993 Fecal Occult Blood Test 1993 Sigmoidoscopy 1993 Hepatitis B (3 of 3 - 19+ 3-dose series) 03/09/2008 01/05/2008, 09/09/2007 GFR 05/05/2024 11/04/2023, 07/13, 03/02/2023, Additional history exists Albumin/Creatinine Ratio 07/08/2024 07/08/2023 CKD HGB USE SMARTSET 14499 07/24/202407/24, 03/24/2023, 03/24/2023, Additional history exists CKD PHOS USE SMARTSET 14263 07/24/2024 07/24/2023 Depression Screening 08/04/2024 08/04/2023 DTaP,Tdap,and [...] filedocumented as of this encounter Care Teams Body Mechanic Apprentice Relationship Specialty Start Date End Date Sakina Lares DO [address] [place] [address] PCP - General Family Medicine 04/07/22 documented as of this encounter
--- OUTSIDE RECORDS SUMMARY | 2024-04-05 14:42 | External Medical Summary | Summary of Care ---
Author Name Unknown Organization [facility] Address [address] [place] [address] Phone [phone] Care Team Providers Care Neon Glass Blower Name Role Phone NataliSakina fritz Primary Care Provider + [phone] Encounter Details Date Type Department Care Team (Late st Contact Info) Description 01/05/2024 Telephone Orthopaedics [facility] 16 [place] [address] Chuy Arteaga MD 16 [place] [address] Allergies No known active allergiesdocumented as of this encounter (statuses as of 01/06/2024) Medications Medication Sig Dispensed Refills Start Date [...] Active Additional Information Patient taking differently:0.4 mg [id number], Reported on 07/08/2023 Sertraline HCl 50 MG [...] as of this encounter (statuses as of 01/06/2024) Active Problems Problem Noted Date Diagnosed Date [...] as of this encounter (statuses as of 01/06/2024) Resolved Problems Problem Noted Date Diagnosed Date Resolved Date Stage 3 chronic kidney disease 07/08/2023 07/23/2023 documented as of this encounter (statuses as of 01/06/2024) Immunizations Name Administration Dates Next Due COVID-19 [...] Tobacco: Never Comments:Mother smoked in [facility] growing up Alcohol Use Standard Drinks/Week Comments [...] No 08/04/2023 Does the household have a [facility] source of income? (Household - for [...] encounter Miscellaneous Notes * Telephone Encounter - Nicole Gale OSA - 01/06/2024 10:42 AM EDT Pt calling requesting a call back to discuss what exactly is injected due to warnings. Please call. * Telephone Encounter - Teersa Leary RN - 01/05/2024 1:42 PM EDT [...] Xiaflex injection. She may be reached at [phone] documented in this encounter Plan of Treatment Upcoming Encounters Date Type Department Care Team (Late st Contact Info) Description 02/17/2024 11:15 AM EDT Office Visit Orthopaedics [facility] 132 [facility] [place] [address] Carlito Mackay PA-C [address] [place] [address] 02/24/2024 11:15 AM EDT Office Visit Orthopaedics [facility] [address] [place] [address] Carlito Mackay PA-C [address] [place] [address] 02/29/2024 9:20 AM EDT Office Visit Family Practice [address] [place] [address] 293 [place] [address] Sakina Lares DO 293 [place] [address] 03/01/2024 1:30 PM EDT Imaging Cardiac Studies, [facility] 132 [facility] [place] [address] 03/02/2024 11:15 AM EDT Office Visit [facility]opaed[facility] [place] [address] Carlito Mackay PA-C [address] [place] [address] 04/06/2024 8:00 AM EDT Office Visit Urology, [facility] 132 [facility] [place] [address] Se Alatorre MD [address] [place] [address] 04/29/2024 9:00 AM EDT Office Visit Cardiology, [facility] 132 [facility] [place] [address] Virgil Mixon PA-C [facility] [place] [address] 08/05/2024 10:00 AM EST Nurse Only Ancillary [address] [address] [place], Nurse Annual Wellness Visit [address] [address] 09/21/2024 7:40 AM EDT Office Visit Dermatology [facility] [address] [place] [address] Jez Pretty PA-C [address] [place] [address] Health Maintenance Due Date Last Done Comments Hepatitis C Screening 1968 Hepatitis B (3 of 3 - 19+ 3-dose series) 03/09/2008 01/05/2008, 09/09/2007 COVID-19 Vaccine ( season) 2023 05/04/2023, 04/22/2022, 10/22/2021, Additional history exists GFR 05/05/2024 11/04/2023, 07/13, 03/02/2023, Additional history exists Albumin/Creatinine Ratio 07/08/2024 07/08/2023 CKD HGB USE SMARTSET 04227 07/24/202407/24, 03/24/2023, 03/24/2023, Additional history exists CKD PHOS USE SMARTSET 42462 07/24/2024 07/24/2023 Depression Screening 08/04/2024 08/04/2023 DTaP,Tdap,and [...] filedocumented as of this encounter Care Teams Neon Glass Blower Relationship Specialty Start Date End Date Sakina Lares DO PCP - General Family Medicine 04/07/22 documented as of this encounter
--- OUTSIDE RECORDS SUMMARY | 2024-04-05 14:42 | External Medical Summary | Summary of Care ---
Author Name Unknown Organization [facility] Address [address] [place] [address] Phone [phone] Care Team Providers Care Personal Support Worker Name Role Phone Sakina Lares DO Primary Care Provider Reason for Visit * Reason Comments Follow Up Pt is here today for his first inj of Gelsyn in L knee * Social Care (Within 30 days (routine)) - Authorized Specialty Diagnoses / Procedures Referred By Tiffany daugherty Referred To Contact Orthopedics Diagnoses Unilateral primary osteoarthritis, left knee Procedures CO GEL-SYN INJECTION 0.1 MG Carlito Mackay PA-C [address] [place] [address] Carlito Mackay PA-C [address] [place] [address] Referral ID Status Reason Start Date Expiration Date V isits Requested Visits Authorized [id number] Authorized Precert 05/26/2023 07/12/2099 [id number] Encounter Details Date Type Department Care Team (Latest Contact Info) Description 02/17/2024 11:15 AM EDT Office Visit Orthopaedics [facility] [address] [place] [address] Carlito Mackay PA-C [address] [place] [address] Primary osteoarthritis of left knee* Allergies No known active allergiesdocumented as of this encounter (statuses as of 02/17/2024) Medications Medication Sig Dispensed Refills Start Date [...] Active Additional Information Patient taking differently:0.4 mg [id number], Reported on 07/08/2023 Sertraline HCl 50 MG [...] sodium hyaluronate (Gelsyn-3) 16.8 MG/2ML inj 16.8 mgIndications:Primary osteoarthritis of left knee 16.8 mg IX ONCE 02/17/2024 02/17/20 24 Ended documented as of this encounter (statuses as of 02/17/2024) Active Problems Problem Noted Date Diagnosed Date [...] as of this encounter (statuses as of 02/17/2024) Resolved Problems Problem Noted Date Diagnosed Date Resolved Date Stage 3 chronic kidney disease 07/08/2023 07/23/2023 documented as of this encounter (statuses as of 02/17/2024) Immunizations Name Administration Dates Next Due COVID-19 mRNA, LNP-s, No Pre serve, 2-Dose Series ([employer]) 08/28/2020,07/31/2020 COVID-19, MRNA-LNP, 23-24, P F, 30 MCG/0.3 mL, 12 YRS AND ABOVE, IM ([employer]) 05/04/2023 COVID-19, mRNA, LNP-s, PF, B ooster, 100mcg/0.5mg ([employer]) 10/22/2021,05/26/2021 Covid-19, Mrna, Lnp-s, Pf, B ivalent, 30 Mcg, IM, 12 yrs and above ([employer]) 04/22/2022 HEP A - Hepatitis A [...] Smokeless Tobacco: Never Comments:Mother smoked in [place] growing up Alcohol Use Standard Drinks/Week Comments [...] Progress Notes * Carlito Mackay PA-C - 02/17/2024 11:36 AM EDTAssociated Order(s): LG Joint Inj/Arthro: L glenohumeral Post-Procedure Diagnose(s): Primary osteoarthritis of left knee Established patient well documented left glenohumeral joint osteoarthritis presents today for initiation of an PLETIEZ injection series Gelsyn 3 of the left shoulder. Responds well to PLEITEZ injections. Has failed conservative treatment in the past. X-rays on file reveal osteoarthritis. Begins to experiencepain with weight-bearing activity and intermittently rest. Denies any mechanical symptoms or instability. No swelling or redness. No calf pain. complete review of systems negative General: alert and oriented x3 male, no acute distress, appears currently stated age, pleasant, well nourished Skin: Left shoulder does not reveal any erythema, effusion, ecchymosis, abrasion, laceration, skin breakdown otherwise Neurovascular: Left upper extremity is neurovascularly intact with good sensation strength throughout Musculoskeletal: Left shoulder exam is unchanged. 5/5 strength. Generalized tenderness around the glenohumeral joint. Decreased range of motion secondary to pain stiffness X-rays left shoulder reveal advancing left glenohumeral joint osteoarthritis Impression: Left glenohumeral joint osteoarthritis Plan: Today 's findings were discussed with the patient. They were educated regarding their diagnosis. Multiple treatment options discussed and agreed upon, including beginning injection 1 Gelsyn 3 left glenohumeral joint. Follow up in 1 week for 2nd injection series. Updated consent time-out today. The patient has no other questions or concerns. Pleased with today 's care. Call sooner if needed. LG Joint Inj/Arthro: L glenohumeral on 02/17/2024 11:51 AM Indications: pain Details: 22 G needle, anterior approach Medications: (Gelsyn 3) Outcome: tolerated well, no immediate complications Procedure, treatment alternatives, risks and benefits explained, specific risks discussed. Consent was given by the patient. Immediately prior to procedure a time out was called to verify the correctpatient, procedure, equipment, personal support worker and site/side marked as required. Patient was prepped and draped in the usual sterile fashion. This chart was completed in part utilizing [employer] Voice Recognition Software. Grammatical errors, random word [...] Nursing Notes * Ruslan Rivera CMA - 02/17/2024 11:12 AM EDT Pt is here today for his first inj of Gelsyn in L knee documented in this encounter Plan of Treatment Upcoming Encounters Date Type Department Care Team (Late st Contact Info) Description 02/19/2024 10:15 AM EDT Office Visit [facility] [address] [place] [address] Carlito Mackay PA-C [address] [place] [address] 02/24/2024 11:15 AM EDT Office Visit [facility] [address] [address] Carlito Mackay PA-C [address] [place] [address] 02/29/2024 9:20 AM EDT Office Visit Family Practice [address] [place] 293 [facility] [place] [address] Sakina Lares DO 293 [place] [address] 03/01/2024 1:30 PM EDT Imaging Cardiac Studies, [facility] 132 [place] [address] 03/02/2024 11:15 AM EDT Office Visit Orthopaedics [facility] 132 [place] [address] Carlito Mackay PA-C 132 [place] [address] 04/06/2024 8:00 AM EDT Office Visit Urology, [facility] 132 [place] [address] Se Alatorre MD 27 [place] [address] 04/07/2024 8:00 AM EDT [facility] [address] [place] [address] Chuy Arteaga MD 16 [place] [address] 04/14/2024 8:00 AM EDT [facility] [address] [place] [address] Chuy Arteaga MD [address] [place] [address] 04/29/2024 9:00 AM EDT Office Visit Cardiology, [facility] 132 [place] [address] Virgil Mixon PA-C [address] [place] [address] 08/05/2024 10:00 AM EST Nurse Only Ancillary 65 [facility] 293 [facility] [place] [address] College, Nurse Annual Wellness Visit [address] [place] [address] 09/21/2024 7:40 AM EDT Office Visit Dermatology [facility] 68 [place] [address] Jez Pretty PA-C 68 [place] [address] Health Maintenance Due Date Last Done Comments Hepatitis C Screening 1968 Hepatitis B Vaccine (3 of 3 - 19+ 3-dose series) 03/09/2008 01/05/2008, 09/09/2007 COVID-19 Vaccine (2022- season) 2023 05/04/2023, 04/22/2022, 10/22/2021, Additional history exists Influenza Vaccine (FLU shot) (#1) 2024 03/13/2023, 04/07/2022, 04/07/2022, Additional history exists GFR 05/05/2024 11/04/2023, 07/13, 03/02/2023, Additional history exists Albumin/Creatinine Ratio 07/08/2024 07/08/2023 CKD HGB USE SMARTSET 87117 07/24/202407/24, 03/24/2023, 03/24/2023, Additional history exists CKD PHOS USE SMARTSET 83263 07/24/2024 07/24/2023 Adult Wellness Visit 08/04/2024 08/04/2023 [...] Procedure Name Priority Date/Time Associated Diagnosis Comments CO ARTHROCENTESIS ASPIR&/INJ MAJOR JT/BURSA W/O US Routine 02/17/2024 11:51 AM EDT Primary osteoarthritis of left knee documented in this encounter Results * CO ARTHROCENTESIS ASPIR&/INJ MAJOR JT/BURSA W/O US (02/17/2024 11:51 AM EDT) Narrative Carlito Mackay PA-C - 02/17/2024 11:51 AM EDT Carlito Mackay PA-C 02/17/2024 11:51 AM LG Joint Inj/Arthro: L glenohumeral on 02/17/2024 11:51 AM Indications: pain Details: 22 G needle, anterior approach Medications: (Gelsyn 3) Outcome: tolerated well, no immediate complications Procedure, treatment alternatives, risks and benefits explained, specific risks discussed. Consent was given by the patient. Immediately prior to procedure a time out was called to verify the correct patient, procedure, equipment, personal support worker and site/side marked as required. Patient was prepped and draped in the usual sterile fashion. Carlito Mackay PA-C PROCDOC FORM documented in this encounter Visit Diagnoses Diagnosis Primary osteoarthritis of left knee- Primary Primary localized osteoarthrosis, lower leg documented in this encounter Administered Medications Inactive Administered Medications - up to 3 most recent administrations Medication Order MAR Action Action Date Dose Rate Site sodium hyaluronate (Gelsyn-3) 16.8 MG/2ML inj 16.8 mg 16.8 mg, Intra-Articular, ONCE, On Thu02/17/24 at 1215, For 1 dose Given 02/17/2024 11:43 AM EDT 16.8 mg Knee Left documented in this encounter Care Teams Personal Support Worker Relationship Specialty Start Date End Date Sakina Lares DO PCP - General Family Medicine 04/07/22 documented as of this encounter
--- OUTSIDE RECORDS SUMMARY | 2024-04-05 14:43 | External Medical Summary | Summary of Care ---
Author Name Unknown Organization [facility] Address [address] [facility] [place] [address] Phone [phone] Care Team Providers Care Gear Keeper Name Role Phone Sakina Lares DO Primary Care Provider [phone] Reason for Visit * Reason Onset Date Comments Test Results 11/04/2023 Encounter Details Date Type Department Care Team (Late st Contact Info) Description 11/04/2023 Telephone Cardiology, [facility] [address] [place] [address] Virgil Mixon PA-C [address] [place] [address] Test Results Allergies No known active allergiesdocumented as of this encounter (statuses as of 11/09/2023) Medications Medication Sig Dispensed Refills Start Date [...] Active Additional Information Patient taking differently:0.4 mg [id number], Reported on 07/08/2023 Sertraline HCl 50 MG [...] as of this encounter (statuses as of 11/09/2023) Active Problems Problem Noted Date Diagnosed Date [...] as of this encounter (statuses as of 11/09/2023) Resolved Problems Problem Noted Date Diagnosed Date Resolved Date Stage 3 chronic kidney disease 07/08/2023 07/23/2023 documented as of this encounter (statuses as of 11/09/2023) Immunizations Name Administration Dates Next Due COVID-19 [...] Smokeless Tobacco: Never Comments:Mother smoked in [facility] growing up Alcohol Use Standard Drinks/Week Comments [...] Telephone Encounter - Ej Al LPN - 11/04/2023 4:12 PM EDT Sent patient a Raidarrrhart message to make aware. Labs ordered. Awaiting reply to pend medication. ----- Message from Virgil Mixon PA-C sent at 11/04/2023 2:33 PM EDT ----- OK/Stable * Telephone Encounter - Ej Al LPN - 11/04/2023 4:12 PM EDT ----- Message from Virgil Mixon PA-C sent at 11/04/2023 2:32 PM EDT ----- LDL cholesterol improved, unfortunately remaining above optimal goal of less than 70 mg/dL despite rosuvastatin 40 mg/day. Recommend adding ezetimibe (Zetia) 10 mg/day. Check a fasting lipid panel, AST, and ALT after being on both rosuvastatin and ezetimibe x 10 to 12weeks. documented in this encounter Plan of Treatment Upcoming Encounters Date Type Department Care Team (Late st Contact Info) Description 11/25/2023 9:45 AM EDT Office Visit Orthopaedics [facility] [address] [place] [place] [address] Chuy Arteaga MD 16 [facility] [place] [address] 12/17/2023 11:20 AM EDT Office Visit Dermatology[address] [id number] Ping Wilson PA-C [address] [place] [address] [place] [address] 02/29/2024 9:20 AM EDT Office Visit Family Practice [address] [place] [address] Sakina Lares DO 293 [place] [address] 03/01/2024 1:30 PM EDT Imaging Cardiac Studies, [facility] 132 [facility] [place] [address] 04/06/2024 8:00 AM EDT Office Visit Urology, [facility] [address] [facility] [place] [address] Se Alatorre MD [address] [place] [address] [address] [place] [address] 04/29/2024 9:00 AM EDT Office Visit Cardiology, [facility] [address] [facility] [place] [address] Virgil Mixon, PA-C [facility] [address] 08/05/2024 10:00 AM EST Nurse Only Ancillary [address] [place] [address] College, Nurse Annual Wellness Visit [address] [place] [address], [place] [address] Scheduled Orders Name Type Priority Associated Diagnoses Orde r Schedule LIPID PANEL WITH DIRECT LDL IF TG IS HIGH Lab Routine Dyslipidemia, goal LDL below 70 Expected: 01/18/2024 (Approximate), Expires: 11/03/2024 AST Lab Routine Dyslipidemia, goal LDL below 70 Expected: 01/11/2024 (Approximate), Expires: 11/03/2024 ALT Lab Routine Dyslipidemia, goal LDL below 70 Expected: 01/11/2024 (Approximate), Expires: 11/03/2024 Health Maintenance Due Date Last Done Comments Hepatitis C Screening 1966 Cologuard 1993 Fecal Occult Blood Test 1993 Sigmoidoscopy 1993 Hepatitis B (3 of 3 - 19+ 3-dose series) 03/09/2008 01/05/2008, 09/09/2007 GFR 05/05/2024 11/04/2023, 07/13, 03/02/2023, Additional history exists Albumin/Creatinine Ratio 07/08/2024 07/08/2023 CKD HGB USE SMARTSET 32455 07/24/202407/24, 03/24/2023, 03/24/2023, Additional history exists CKD PHOS USE SMARTSET 58199 07/24/2024 07/24/2023 Depression Screening 08/04/2024 08/04/2023 DTaP,Tdap,and [...] as of this encounter Visit Diagnoses Diagnosis Dyslipidemia, goal LDL below 70- Primary Other and unspecified hyperlipidemia documented in this encounter Care Teams Gear Keeper Relationship Specialty Start Date End Date Sakina Lares DO 293 [place] [address] PCP - General Family Medicine 04/07/22 documented as of this encounter
--- OUTSIDE RECORDS SUMMARY | 2024-04-05 14:43 | External Medical Summary ---
Author Name Unknown Address Unknown Organization K01:[facility] [place] [address] [place] [address] Laboratory Report Ordering Provider Test Date Status GOLDEN LIRA 11/04/2023 08:28:21 Final Observation Date Value Abnormality Reference (Units ) Status MYCODE SPECIMEN-SST 11/04/2023 08:28:21 Freezing of extracted DNA, whole blood and/or serum. Final Performing Location [facility] [place] [address] [place] [address]
--- OUTSIDE RECORDS SUMMARY | 2024-04-05 14:43 | External Medical Summary | Summary of Care ---
Author Name Unknown Organization [facility] Address [address] [place] [address] Phone [phone] Care Team Providers Care Rotary Slicing Machine Operator Name Role Phone Luda Sakinabirdie Valdes DO Primary Care Provider + [phone] Reason for Referral * Precert (Within 10 days (routine)) - Authorized Specialty Diagnoses / Procedures Referred By Contac t Referred To Contact Cardiac Studies Diagnoses Coronary artery calcification seen on CT scan Dyslipidemia, goal LDL below 70 Family history of ischemic heart disease MARIO (dyspnea on exertion) Procedures ECHO, STRESS (EXERCISE) W/ PHYSICIAN Virgil Mixon PA-C [address] [place] [address] Referral ID Status Reason Start Date Expiration Date V isits Requested Visits Authorized [id number] Authorized Precert 02/28/2024 999 999 Reason for Visit * Reason Comments Follow Up Encounter Details Date Type Department Care Team (Latest Contact Info) Description 10/29/2023 2:00 PM EDT Office Visit Cardiology, [facility] [address] [place] [address] Virgil Mixon PA-C [address] [place] [address] SVT (supraventricular tachycardia) (HCC)*; PVC's (premature ventricular contractions); Coronary artery calcification seen on CT scan; Dyslipidemia, goal LDL below 70; Family history of ischemic heart disease; MARIO (dyspnea on exertion) Allergies No known active allergiesdocumented as of this encounter (statuses as of 10/31/2023) Medications Medication Sig Dispensed Refills Start Date End Date Status Melatonin 5 MG Oral Tablet Take 1 Tablet by mouth at bedtime. 0 Active Aspirin 81 MG Oral Tablet Delayed Release Take 1 Tablet by mouth in the morning. 0 03/04/2023 Active Tylenol PM Extra Strength 500-25 MG Oral Tablet (diphenhydrAMINE- APAP (sleep)) Take 1 Tablet by mouth at bedtime. 0 Active Tamsulosin HCl 0.4 MG Oral Capsule (Flomax) Take 1 Capsule by mouth in the morning. 100 Capsule 3 05/11/2023 Active Additional Information Patient taking differently:0.4 mg [id number], Reported on 07/08/2023 Sertraline HCl 50 MG Oral Tablet (Zoloft) TAKE ONE TABLET BY MOUTH EVERY MORNING 100 Tablet 3 05/12/2023 4 Active hydrOXYzine Pamoate 50 MG Oral Capsule (Vistaril) Take 1 Capsule by mouth at bedtime as needed for Anxiety or Other (sleep). 30 Capsule 3 07/08/2023 Active Omeprazole 20 MG Oral Capsule Delayed Release (PriLOSEC)Indicat ions:Gastroesopha geal reflux disease without esophagitis Take 1 Capsule by mouth in the morning. 1 hour before the first meal of the day. 0 08/05/2023 Active Rosuvastatin Calcium 40 MG Oral Tablet (Crestor) Take 1 Tablet by mouth in the morning. 90 Tablet 3 08/04/2023 Active Zolpidem Tartrate 5 MG Oral Tablet (Ambien)Indicatio ns:Insomnia, unspecified type Take 0.5 Tablets by mouth at bedtime as needed for Sleep. 30 Tablet 0 06/02/2023 4 Discontinue d(Patient preference/ discontinua tion) Fluorouracil 5 % External Cream (Efudex)Indicatio ns:Actinic keratosis Apply thin layer to face/ears/sides of neck 2x daily for 3 weeks then send photos through the patient portal at the end of the treatment. 40 g 1 06/03/2023 4 Discontinue d(Patient preference/ discontinua tion) documented as of this encounter (statuses as of 10/31/2023) Active Problems Problem Noted Date Diagnosed Date [...] as of this encounter (statuses as of 10/31/2023) Resolved Problems Problem Noted Date Diagnosed Date Resolved Date Stage 3 chronic kidney disease 07/08/2023 07/23/2023 documented as of this encounter (statuses as of 10/31/2023) Immunizations Name Administration Dates Next Due COVID-19 mRNA, LNP-s, No Pre serve, 2-Dose Series (Moderna) 08/28/2020,07/31/2020 COVID-19, MRNA-LNP, 23-24, P F, 30 MCG/0.3 mL, 12 YRS AND ABOVE, IM ([employer]) 05/04/2023 COVID-19, mRNA, LNP-s, PF, B ooster, [...] Sign Reading Time Taken Comments Blood Pressure 138/82 10/29/2023 1:48 PM EDT Pulse 80 10/29/2023 1:48 PM EDT Temperature - - Respiratory Rate 18 10/29/2023 1:48 PM EDT Oxygen Saturation - - Inhaled Oxygen Concentration - - Weight 80.7 kg (178 lb) 10/29/2023 1:48 PM EDT Height - - Body Mass Index 25.91 10/28/2023 9:09 AM EDT documented in this encounter Progress Notes * Virgil Mixon PA-C - 10/29/2023 2:00 PM EDT History of Present Illness: Robert Love is a 72 year old male who returns today for routine cardiology follow-up evaluation. Patient evaluated at in [place] on 02/25/2023 due to concerns of hypoxia and dizziness after riding his bike downhill. O2 checked by skin care specialist - 84%. HR elevated. Symptoms quickly resolved in a matter of seconds, spontaneously. Zio monitor obtained afterwards revealed sinus as the predominant rhythm with an average heart rate of 71 bpm. 14 episodes of SVT were observed, asymptomatic. No atrial fibrillation, ventricular arrhythmias, high-degree heart block, or pauses observed. He did not experienced anything like when he did in [place] while wearing the Zio monitor Patient returns today feeling okay. He has had some dyspnea, especially at altitude. He continues to have coughing and clearing of the throat and wonders if this is related to vocal cord or somethingelse. No activity related chest pain. No reported palpitations. No fluid retention. No syncope. Problem List Extensive calcified coronary arteries via March 05, [address] Asymptomatic SVT PVCs Dyslipidemia Secondhand smoke exposure Family history of ischemic heart disease Stage III chronic kidney disease GERD BPH Patient Active Problem List Diagnosis Code Dyslipidemia E78.5 BPH with obstruction/lower urinary tract symptoms N40.1, N13.8 Insomnia G47.00 Gastroesophageal reflux disease without esophagitis K21.9 Hx of nonmelanoma skin cancer Z85.828 H/O actinic keratosis Z87.2 Chronic kidney disease, stage 3a (HCC) N18.31 Coronary artery calcification seen on CT scan I25.10 SVT (supraventricular tachycardia) (HCC) I47.10 Past Medical History: Diagnosis Date BPH (benign prostatic hyperplasia) Hyperlipidemia Insomnia Lyme disease Shoulder arthritis bilaterally SVT (supraventricular tachycardia) (HCC) Past Surgical History: Procedure Laterality Date EGD, FLEXIBLE, DIAGNOSTIC 11/10/2022 acid reflux on bx / ESOPHAGOGASTRODUODENOSCOPY (EGD), FLEXIBLE, TRANSORAL, DIAGNOSTIC performed by Oscar Shannon MD at ENDOSCOPY [facility] EXPLORE, TREAT ANKLE JOINT Left repair of fracture KNEE ARTHROSCOPY/ARTHROPLASTY Right LAP;REPAIR RECURRENT HERNIA two OTHER Bilateral eye surgery on muscles bilaterally WRIST ARTHROSCOPY/SURGERY Right Family History Problem Relation Age of Onset Cancer Mother 78 Lung Other (Other) Father Alcoholism Heart attack Father 80 Parkinsonism Brother Family History coronary artery disease, father at age 80 , uncle in 50s, 1 uncle in the 70s. Sibling from Parkinson's at age 71. Mother had lung cancer and at age 78. Social History Socioeconomic History Marital status: Spouse name: Not on file Number of children: Not on file Years of education: Not on file Highest education level: Not on file Occupational History Not on file Tobacco Use Smoking status: Never Passive exposure: Past Smokeless tobacco: Never Tobacco comments: Mother smoked in home growing up Vaping Use Vaping Use: Never used Substance and Sexual Activity Alcohol use: Yes Comment: 3 or 4 glasses of wine weekly Drug use: Never Sexual activity: Not on file Other Topics Concern Not on file Social History Narrative Not on file Social Determinants of Health Financial Resource Strain: Not on file Food Insecurity: No Food Insecurity (08/04/2023) Hunger Vital Sign Worried About Running Out of Food in the Last Year: Never true Ran Out of Food in the Last Year: Never true Transportation Needs: Not on file Physical Activity: Not on file Stress: Not on file Social Connections: Not on file Intimate Partner Violence: Not on file Housing Stability: Not on file Complete Review of Systems is as stated [...] BY MOUTH EVERY MORNING 100 Tablet 3 Zolpidem Tartrate 5 MG Oral Tablet (Ambien) Take 0.5 Tablets by mouth at bedtime as needed for Sleep. (Patient not taking: Reported on 10/28/2023) 30 Tablet 0 Fluorouracil 5 % External Cream (Efudex) Apply thin layer to face/ears/sides of neck 2x daily for 3weeks then send photos through the patient portal at the end of the treatment. (Patient not taking:Reported on 07/08/2023) 40 g 1 hydrOXYzine Pamoate 50 MG Oral Capsule (Vistaril) [...] mouth in the morning. 90 Tablet 3 No current facility-administered medications for this visit. PHYSICAL EXAMINATION: BP 138/82 (BP Site: Left Arm, BP Position: Sitting, BP Cuff Size: Regular) | Pulse 80 | Resp 18 | Wt 80.7 kg (178 lb) | BMI 25.91 kg/m | BSA 1.99 m General: alert and no distress Skin: No rash Eyes: PER. Conjunctiva pink, sclera clear. HENT: Normocephalic. Atraumatic. Neck: No carotid bruits. No JVD. No HJR. Heart: RRR. No murmur. No rub. No gallop. PMI is nondisplaced. Lungs: Decreased/diminished, more so at the right base.Dry left basilar rales. No wheeze. Abdomen: +BS. Soft. Nontender. No masses. No organomegaly. Extremities: No clubbing, cyanosis, or edema. Pulses: radial=2/4, posterior tibial=2/4. Limited neurological examination: No focal deficit. Data: EKG 03/04/2023 Normal sinus rhythm with incomplete right bundle branch block, 60 beats per minute. March 05, [address]: Bibasilar atelectasis/fibrosis. [...] effusion is noted. Zio monitor obtained in [place] revealed sinus as the predominant rhythm with an average heart rate of 71 bpm. 14 episodes of SVT were observed with the longest lasting ? 13 seconds in duration, not associated with symptoms. No atrial fibrillation, ventricular arrhythmias, high-degree heart block, orpauses observed. Lipid Panel Results: Results for orders placed or performed in visit on 07/24/23 LIPID PANEL WITH DIRECT LDL IF TG IS HIGH Result Value Ref Range Triglycerides 138 <=174 mg/dL Cholesterol 188 <200 mg/dL HDL Cholesterol 44 >39 mg/dL Non-HDL Cholesterol 144 <=159 mg/dL LDL Cholesterol 116 <=129 mg/dL Above lipids obtained while on rosuvastatin 20 mg/day, now on rosuvastatin 40 mg/day ASSESSMENT: Extensive calcified coronary arteries via March 05, [address] Dyslipidemia Asymptomatic SVT PVCs Stage III chronic kidney disease Past secondhand smoke exposure Family history of ischemic heart disease RECOMMENDATIONS/PLAN: Aggressive risk factor and lifestyle modification recommended. Continue Aspirin 81 mg/day Continue rosuvastatin 40 mg/day, targeting an optimal LDL goal of less than 70 mg/dL Reassess lipids and LFT's (rosuvastatin increased to 40 mg/day in July 2023) If LDL cholesterol remains above 70 mg/dL will add ezetimibe 10 mg/day next Stress echocardiography in February 2024, RE: Exertional dyspnea, extensive coronary artery calcifications, dyslipidemia, family history, past secondhand smoke exposure. Routine cardiology follow-up ER with emergencies. Virgil Mixon PA-C Department of Cardiology I spent a total of 30-39 minutes (exact time 30 mins) on the date of service in preparation, delivery, and documentation of the care provided to Robert Love excluding any time spent in the performance of separately billed services. This visit involved medical care services related to at least one serious condition or complex condition requiring ongoing care. This chart was completed in part utilizing [employer] Speech Voice Recognition Software. Grammatical errors, random [...] documented in this encounter Nursing Notes * Bernice Hooks CMA - 10/29/2023 1:50 PM EDT Examination Room: 2 Name: Robert Love Date of : (1950). Reason for Visit: 4M f/u Interim Hospitalization(s): none Problems/Concerns: denies Chest Pain/SOB: denies [facility] Discussed: No [facility] is a way you can [...] 11/25/2023 9:45 AM EDT Office Visit [place] [facility] [place] [address] [place] [address] Chuy Arteaga MD 16 [place] [address] 12/17/2023 11:20 AM EDT Office Visit Dermatology[address] [address] Ping Wilson PA-C [address] [place] [address] [place] [address] 02/29/2024 9:20 AM EDT Office Visit Family Practice [address] [place] [address], [place] 293 [place] [address] Sakina Lares DO 293 [place] [address] 03/01/2024 1:30 PM EDT Imaging [facility] Studies, [facility] [address] 04/06/2024 8:00 AM EDT Office Visit Urology, [facility] 132 [facility] [place] [address] Se Alatorre MD 27 [facility] [place] [address] [place] [address] 04/29/2024 9:00 AM EDT Office Visit Cardiology, [facility] 132 [facility] [place] [address] Virgil Mixon PA-C 132 [facility] [place] [address] 08/05/2024 10:00 AM EST Nurse Only Ancillary 65 [facility] 293 [place] [address] College, Nurse Annual Wellness Visit [address] [place] [address] Scheduled Orders Name Type Priority Associated Diagnoses Orde r Schedule LIPID PANEL WITH DIRECT LDL IF TG IS HIGH Lab Routine Dyslipidemia, goal LDL below 70 Expected: 01/28/2024, Expires: 10/28/2024 COMPREHENSIVE METABOLIC PANEL Lab Routine Dyslipidemia, goal LDL below 70 Expected: 10/29/2023, Expires: 10/28/2024 ECHO, STRESS (EXERCISE) W/ PHYSICIAN Echocardiology Routine Coronary artery calcification seen on CT scan Dyslipidemia, goal LDL below 70 Family history of ischemic heart disease MARIO (dyspnea on exertion) Expected: 02/28/2024, Expires: 11/27/2024 Health Maintenance Due Date Last Done Comments Hepatitis C Screening 1966 Cologuard 1993 Fecal Occult Blood Test 1993 Sigmoidoscopy 1993 Hepatitis B (3 of 3 - 19+ 3-dose series) 03/09/2008 01/05/2008, 09/09/2007 GFR 01/22/2024 07/24/2023, 02/11, 02/25/2023, Additional history exists Albumin/Creatinine Ratio 07/08/2024 07/08/2023 CKD HGB USE SMARTSET 30060 07/24/202407/24, 03/24/2023, 03/24/2023, Additional history exists CKD PHOS USE SMARTSET 75183 07/24/2024 07/24/2023 Depression Screening 08/04/2024 08/04/2023 DTaP,Tdap,and [...] as of this encounter Visit Diagnoses Diagnosis SVT (supraventricular tachycardia) (HCC)- Primary Other specified cardiac dysrhythmias PVC's (premature ventricular contractions) Other premature beats Coronary artery calcification seen on CT scan Dyslipidemia, goal LDL below 70 Other and unspecified hyperlipidemia Family history of ischemic heart disease MARIO (dyspnea on exertion) Other dyspnea and respiratory abnormality documented in this encounter Care Teams Rotary Slicing Machine Operator Relationship Specialty Start Date End Date Sakina Lares DO 293 [facility] [place] [facility] [address] PCP - General Family Medicine 04/07/22 documented as of this encounter"
--- OUTSIDE RECORDS SUMMARY | 2024-04-05 14:43 | External Medical Summary | Summary of Care ---
Author Name Unknown Organization [facility] [address] [facility] [address] Phone [phone] Care Team Providers Care Phlebotomist Associate Name Role Phone NataliSakina fritz Keisha KUMAR Primary Care Provider [phone] Encounter Details Date Type Department Care Team (Late st Contact Info) Description 11/02/2023 Orders Only PATIENT PORTAL DO NOT DELETE THIS DEPT USED BY [place] [address] Allergies No known active allergiesdocumented as of this encounter (statuses as of 11/02/2023) Medications Medication Sig Dispensed Refills Start Date [...] Active Additional Information Patient taking differently:0.4 mg [id number], Reported on 07/08/2023 Sertraline HCl 50 MG [...] the morning. 90 Tablet 3 08/04/2023 Active documented as of this encounter (statuses as of 11/02/2023) Active Problems Problem Noted Date Diagnosed Date [...] as of this encounter (statuses as of 11/02/2023) Resolved Problems Problem Noted Date Diagnosed Date Resolved Date Stage 3 chronic kidney disease 07/08/2023 07/23/2023 documented as of this encounter (statuses as of 11/02/2023) Immunizations Name Administration Dates Next Due COVID-19 mRNA, LNP-s, No Pre serve, 2-Dose Series (Moderna) 08/28/2020,07/31/2020 COVID-19, MRNA-LNP, 23-24, P F, 30 MCG/0.3 mL, 12 YRS AND ABOVE, IM ([facility]) 05/04/2023 COVID-19, mRNA, LNP-s, PF, B [...] Past Smokeless Tobacco: Never Comments:Mother smoked in [facility] growing up Alcohol Use Standard Drinks/Week [...] 11/25/2023 9:45 AM EDT Office Visit Orthopaedics [place] [address] Chuy Arteaga MD 16 [place] [address] 12/17/2023 11:20 AM EDT Office Visit Dermatology, [address] [address] Ping Wilson PA-C [address] [place] [address] [place] [address] 02/29/2024 9:20 AM EDT Office Visit Family Practice 65 [facility] 293 [place] [address] Sakina Lares DO 293 [place] [address] 03/01/2024 1:30 PM EDT Imaging Cardiac Studies, [facility] 132 [facility] [place] [address] 04/06/2024 8:00 AM EDT Office Visit Urology, [facility] 132 [facility] [place] [address] Se Alatorre MD [address] [address] 04/29/2024 9:00 AM EDT Office Visit Cardiology, [facility] 132 [facility] [place] [address] Virgil Mixon PA-C [facility] [address] 08/05/2024 10:00 AM EST Nurse Only Ancillary 65 [facility] 293 [facility] [place] [place] [address] College, Nurse Annual Wellness Visit [address] [place] [address] Health Maintenance Due Date Last Done Comments Hepatitis C Screening 1966 Cologuard 1993 Fecal Occult Blood Test 1993 Sigmoidoscopy 1993 Hepatitis B (3 of 3 - 19+ 3-dose series) 03/09/2008 01/05/2008, 09/09/2007 GFR 01/22/2024 07/24/2023, 02/11, 02/25/2023, Additional history exists Albumin/Creatinine Ratio 07/08/2024 07/08/2023 CKD HGB USE SMARTSET 75213 07/24/202407/24, 03/24/2023, 03/24/2023, Additional history exists CKD PHOS USE SMARTSET 14598 07/24/2024 07/24/2023 Depression Screening 08/04/2024 08/04/2023 DTaP,Tdap,and [...] filedocumented as of this encounter Care Teams Phlebotomist Associate Relationship Specialty Start Date End Date Sakina Lares DO [address] [place] [address], [place] [address] PCP - General Family Medicine 04/07/22 documented as of this encounter
--- OUTSIDE RECORDS SUMMARY | 2024-04-05 14:43 | External Medical Summary | Summary of Care ---
Author Name Unknown Organization [facility] Address [address] [place] [address] Phone [phone] Care Team Providers Care Brew House Supervisor Name Role Phone Sakina Lares DO Primary Care Provider [phone] Reason for Visit * Reason Comments Follow Up Encounter Details Date Type Department Care Team (Latest Contact Info) Description 10/28/2023 9:20 AM EDT Office Visit Family Practice [address] [place] [address] [place] [phone] Sakina Lares DO [address] [place] [address] Coronary artery calcification seen on CT scan*; SVT (supraventricular tachycardia) (HCC); Osteoarthritis of glenohumeral joint, left Allergies No known active allergiesdocumented as of this encounter (statuses as of 10/28/2023) Medications Medication Sig Dispensed Refills Start Date [...] Active Additional Information Patient taking differently:0.4 mg [id number], Reported on 07/08/2023 Sertraline HCl 50 MG Oral Tablet (Zoloft) TAKE ONE TABLET BY MOUTH EVERY MORNING 100 Tablet 3 05/12/2023 05/11/2024 Active Zolpidem Tartrate 5 MG Oral Tablet (Ambien)Indication s:Insomnia, unspecified type Take 0.5 Tablets by mouth at bedtime as needed for Sleep. 30 Tablet 0 06/02/2023 Active Additional Information Patient not taking.Reported on 10/28/2023 Fluorouracil 5 % External Cream (Efudex)Indication s:Actinic keratosis Apply thin layer to face/ears/sides of neck 2x daily for 3 weeks then send photos through the patient portal at the end of the treatment. 40 g 1 06/03/2023 Active Additional Information Patient not taking.Reported on 07/08/2023 hydrOXYzine Pamoate 50 MG Oral Capsule (Vistaril) [...] as of this encounter (statuses as of 10/28/2023) Active Problems Problem Noted Date Diagnosed Date [...] as of this encounter (statuses as of 10/28/2023) Resolved Problems Problem Noted Date Diagnosed Date Resolved Date Stage 3 chronic kidney disease 07/08/2023 07/23/2023 documented as of this encounter (statuses as of 10/28/2023) Immunizations Name Administration Dates Next Due COVID-19 mRNA, LNP-s, No Pre serve, 2-Dose Series (Moderna) 08/28/2020,07/31/2020 COVID-19, MRNA-LNP, 23-24, P F, 30 MCG/0.3 mL, 12 YRS AND ABOVE, IM (oragenics-Comirnaty) 05/04/2023 COVID-19, mRNA, LNP-s, PF, B ooster, 100mcg/0.5mg (Moderna) 10/22/2021,05/26/2021 Covid-19, Mrna, Lnp-s, Pf, B ivalent, 30 Mcg, IM, 12 yrs and above (Right Skills) 04/22/2022 HEP A - Hepatitis A (Adult [...] Sign Reading Time Taken Comments Blood Pressure 124/70 10/28/2023 9:09 AM EDT Pulse 72 10/28/2023 9:09 AM EDT Temperature 35.7 C (96.2 F) 10/28/2023 9:09 AM ED T Respiratory Rate 12 10/28/2023 9:09 AM EDT Oxygen Saturation 95% 10/28/2023 9:09 AM EDT Inhaled Oxygen Concentration - - Weight 81.2 kg (179 lb) 10/28/2023 9:09 AM EDT Height 176.5 cm (5' 9.5") 10/28/2023 9:09 AM EDT Body Mass Index 26.05 10/28/2023 9:09 AM EDT documented in this encounter Progress Notes * Sakina Lares, - 10/28/2023 9:34 AM EDT SUBJECTIVE: Chief Complaint Patient presents with Follow Up HPI: Robert Love is a 72 year old male who presents today for regular return. Pt following with Dr. Carrero for gel shots of his shoulder. He notes that they are not lasting the entire 6 months but do help his symptoms. He will be paying out of pocket to get set up for a 3 month injection to seeif this will further delay shoulder replacement. Pt feels he is doing ok otherwise. He notes that he had a brief episode of dizziness yesterday whenloading firewood. He has cardiology f/u tomorrow. No changes otherwise. PHM: Patient Active Problem List Diagnosis Code Dyslipidemia E78.5 BPH with obstruction/lower urinary tract symptoms N40.1, N13.8 Insomnia G47.00 Gastroesophageal reflux disease without esophagitis K21.9 Hx of nonmelanoma skin cancer Z85.828 H/O actinic keratosis Z87.2 Chronic kidney disease, stage 3a (HCC) N18.31 Current Outpatient Medications Medication Sig Dispense Refill [...] mouth in the morning. 90 Tablet 3 Zolpidem Tartrate 5 MG Oral [...] not taking:Reported on 07/08/2023) 40 g 1 No current facility-administered medications for this visit. Past Medical History: Diagnosis Date BPH (benign prostatic hyperplasia) Hyperlipidemia Insomnia Lyme disease Shoulder arthritis bilaterally SVT (supraventricular tachycardia) (HCC) Past Surgical History: Procedure Laterality Date EGD, FLEXIBLE, DIAGNOSTIC 11/10/2022 acid reflux on bx / ESOPHAGOGASTRODUODENOSCOPY (EGD), FLEXIBLE, TRANSORAL, DIAGNOSTIC performed by Oscar Shannon MD at END[facility]COPY [facility] EXPLORE, TREAT ANKLE JOINT Left repair of fracture KNEE ARTHROSCOPY/ARTHROPLASTY Right LAP;REPAIR RECURRENT HERNIA two OTHER Bilateral eye surgery on muscles bilaterally WRIST ARTHROSCOPY/SURGERY Right Review of patient's allergies indicates: No Known Allergies Family History Problem Relation Age of Onset [...] color change, pallor and rash. OBJECTIVE: BP 124/70 (BP Site: Left Arm, BP Position: Sitting, BP Cuff Size: Regular) | Pulse 72 | Temp 35.7 C (96.2 F) (Tympanic) | Resp 12 | Ht 1.765 m (5' 9.5") | Wt 81.2 kg (179 lb) | SpO2 95% | BMI 26.05 kg/m | BSA 2 m PHYSICAL EXAM: Physical Exam Constitutional: General: [...] tenderness. There is no guarding. Musculoskeletal: General: No tenderness or deformity. Normal range of motion. Skin: General: Skin is warm and dry. Coloration: Skin is not pale. Findings: No erythema or rash. Neurological: Mental Status: He is alert and oriented to person, place, and time. ASSESSMENT/PLAN: (I25.10) Coronary artery calcification seen on CT scan (primary encounter diagnosis) (I47.10) SVT (supraventricular tachycardia) (HCC) Plan: Pt will follow-up with cardiology. No changes for now. Monitor symptoms. (M19.012) Osteoarthritis of glenohumeral joint, left Plan: Pt following with ortho. Will ask pharmacy if they are able to estimate cost of medication. Did give him the patient assistance program information for the Gelsyn shot that he has had previously. Follow-up: 4 months Total time today including reviewing chart before the visit, pertinent labs, imaging reports, face to face time, and documentation time was 34 minutes. Sakina Lares DO documented in this encounter Nursing Notes * Rebecca Mckeon LPN - 10/28/2023 9:08 AM EDT Patient here for routine follow up visit. Patient has been verbally educated on the need or importance of Hepatitis C and Immunizations: RSV and has declined topic(s). documented in this encounter Plan of Treatment Upcoming Encounters Date Type Department Care Team (Late st Contact Info) Description 10/29/2023 2:00 PM EDT Office Visit Cardiology, [facility] [address] [place] [address] Virgil Mixon PA-C [address] [place] [address] 11/02/2023 10:00 AM EDT Office Visit Orthopaedics [facility] [address] [place] [address] Alfreda [facility]rero MD [facility] [place] [address] 11/09/2023 10:30 AM EDT Office Visit Orthopaedics [facility] 132 [facility] [place] [address] Alfreda Carrero MD 132 [facility] [place] [address] 11/16/2023 11:30 AM EDT Office Visit Orthopaedics [facility] 132 [facility] [place] [address] Alfreda Carrero MD 132 [facility] [place] [address] 11/25/2023 9:45 AM EDT [facility] 16 [place] [phone] Chuy Arteaga MD 16 [place] [address] 12/17/2023 11:20 AM EDT Office Visit Dermatology[address] [address] Ping Wilson PA-C [address] [place] [address] [place] [address] 02/29/2024 9:20 AM EDT Office Visit Family Practice [address] [place] [address] 293 [facility] [place] [address] Sakina Lares DO 293 [facility] [address] 04/06/2024 8:00 AM EDT Office Visit Urology, [facility] 132 [facility] [place] [address] Se Alatorre MD 27 [facility] [place] [address] [place] [address] 08/05/2024 10:00 AM EST Nurse Only Ancillary 65 [facility] 293 [facility] [place] [address] College, Nurse Annual Wellness Visit [address] [facility] 293 [facility] [place] [address] Health Maintenance Due Date Last Done Comments Cologuard 1993 Fecal Occult Blood Test 1993 Sigmoidoscopy 1993 Hepatitis B (3 of 3 - 19+ 3-dose series) 03/09/2008 01/05/2008, 09/09/2007 Hepatitis C Screening 10/29/2023 Postpo angel from 1966 (Patient Declined After Education) GFR 01/22/2024 07/24/2023, 08/2 07/2022, 02/25/2023, Additional history exists Albumin/Creatinine Ratio 07/08/2024 07/08/2023 CKD HGB USE SMARTSET 47297 07/24/202407/24, 03/24/2023, 03/24/2023, Additional history exists CKD PHOS USE SMARTSET 70899 07/24/2024 07/24/2023 Depression Screening 08/04/2024 08/04/2023 DTaP,Tdap,and [...] artery calcification seen on CT scan- Primary SVT (supraventricular tachycardia) (HCC) Other specified cardiac dysrhythmias Osteoarthritis of glenohumeral joint, left documented in this encounter Care Teams Brew House Supervisor Relationship Specialty Start Date End Date Sakina Lares DO [address] [place] [address] PCP - General Family Medicine 04/07/22 documented as of this encounter
--- OUTSIDE RECORDS SUMMARY | 2024-04-05 14:43 | External Medical Summary ---
Author Name Unknown Address Unknown Organization K01:[facility] - [address] [facility] [address] Laboratory Report Ordering Provider Test Date Status ESTELA ROBERTISO 11/04/2023 08:28:21 Final Observation Date Value Abnormality Reference (Units ) Status Triglyceride 11/04/2023 08:28:21 120 <=174 ( mg/dL) Final Triglyceride Reference Range s (mg/dL):
<150 Acceptable
150-174 Borderline high
175-499 High
>=500 Very high Cholesterol 11/04/2023 08:28:21 146 <200 (mg /dL) Final Total Cholesterol Reference Ranges (mg/dL):
<200 Desirable
200-239 Borderline high
>=240 High HDL 11/04/2023 08:28:21 40 >39 (mg/dL ) Final HDL Cholesterol Reference Ra nges (mg/dL):
>=60 High (Desirable)
<50 Low (Undesirable) For Females
<40 Low (Undesirable) For Males NON-HDL CHOLESTEROL 11/04/2023 08:28:21 106 <=159 (mg/dL) Final Non-HDL Cholesterol Referenc e Range (mg/dL):
<100 Target level for high risk ASCVD patient
<130 Optimal for general population
130-159 Near optimal for general population
160-189 Borderline High
190-219 High
>=220 Very High LDL, (calculated) 11/04/2023 08:28:21 82 <= 129 (mg/dL) Final LDL Cholesterol Reference Ra nges (mg/dL):
<70 Target level for high risk ASCVD patient
<100 Optimal for general population
100-129 Near optimal for general population
130-159 Borderline high
160-189 High
>=190 Very high Performing Location [facility] - [address] [facility] [address]
--- OUTSIDE RECORDS SUMMARY | 2024-04-05 14:43 | External Medical Summary | Summary of Care ---
Author Name Unknown Organization [facility] Address [address] [place] [address] Phone [phone] Care Team Providers Care Roulette Dealer Name Role Phone NataliSakina fritz Primary Care Provider [phone] Encounter Details Date Type Department Care Team (Late st Contact Info) Description 11/09/2023 Orders Only Outcomes Research Department [address] [place] [address] Mabel Babin CHRA [email or web address] Research Other*[id number] Allergies No known active allergiesdocumented as of [...] Active Additional Information Patient taking differently:0.4 mg [id number], Reported on 07/08/2023 Sertraline HCl 50 MG [...] MCG/0.3 mL, 12 YRS AND ABOVE, IM ([facility]) 05/04/2023 COVID-19, mRNA, LNP-s, PF, B [...] Past Smokeless Tobacco: Never Comments:Mother smoked in [place] growing up Alcohol Use Standard Drinks/Week Comments [...] AM EDT Office Visit Orthopaedics [address] [place] [address] Chuy Arteaga MD 16 [place] [address] 12/17/2023 11:20 AM EDT Office Visit Dermatology[address] [address] Ping Wilson PA-C [address] [place] [address] [place] [address] 02/29/2024 9:20 AM EDT Office Visit Family Practice [address] [place] [address] 293 [place] [phone] Sakina Lares DO 293 [place] [address] 03/01/2024 1:30 PM EDT Imaging Cardiac Studies, [facility] [address] 04/06/2024 8:00 AM EDT Office Visit Urology, [facility] 132 [facility] [place] [address] Se Alatorre MD [address] [address] 04/29/2024 9:00 AM EDT Office Visit Cardiology, [facility] 132 [facility] [place] [address] Virgil Mixon PA-C 132 [facility] [address] 08/05/2024 10:00 AM EST Nurse Only Ancillary [address] [place] [address] 293 [place] [address] College, Nurse Annual Wellness Visit [address] [place] [address], [place] [address] Scheduled Orders Name Type Priority Associated Diagnoses Orde r Schedule MYCODE SUBSEQUENT ADULT Lab Routine MyCode Research Other*[id number] Every 6 Months for 2 Occurrences starting 11/09/2023 until 11/28/2024 Health Maintenance Due Date Last Done Comments Hepatitis C Screening 1966 Cologuard 1993 Fecal Occult Blood Test 1993 Sigmoidoscopy 1993 Hepatitis B (3 of 3 - 19+ 3-dose series) 03/09/2008 01/05/2008, 09/09/2007 GFR 05/05/2024 11/04/2023, 07/13, 03/02/2023, Additional history exists Albumin/Creatinine Ratio 07/08/2024 07/08/2023 CKD HGB USE SMARTSET 11446 07/24/202407/24, 03/24/2023, 03/24/2023, Additional history exists CKD PHOS USE SMARTSET 44015 07/24/2024 07/24/2023 Depression Screening 08/04/2024 08/04/2023 DTaP,Tdap,and [...] as of this encounter Visit Diagnoses Diagnosis My[employer] Research Other*[id number] documented in this encounter Care Teams Roulette Dealer Relationship Specialty Start Date End Date Sakina Lares DO [address] [place] [address] PCP - General Family Medicine 04/07/22 documented as of this encounter
--- OUTSIDE RECORDS SUMMARY | 2024-04-05 14:43 | External Medical Summary ---
Author Name Unknown Address Unknown Organization K01:[facility] [place] [address] [place] [address] Laboratory Report Ordering Provider Test Date Status GOLDEN LIRA 11/04/2023 08:28:21 Final Observation Date Value Abnormality Reference (Units ) Status MYCODE SPECIMEN-SST 11/04/2023 08:28:21 Freezing of extracted DNA, whole blood and/or serum. Final Performing Location [facility] [place] [address] [place] [address]
--- OUTSIDE RECORDS SUMMARY | 2024-04-05 14:43 | External Medical Summary | Summary of Care ---
Author Name Unknown Organization [facility] Address [address] [place] [address] Phone [phone] Care Team Providers Care Chemical Production Machine Operator Name Role Phone Sakina Lares DO Primary Care Provider Reason for Visit * Reason Onset Date Comments Other 10/29/2023 Encounter Details Date Type Department Care Team (Late st Contact Info) Description 10/29/2023 Telephone Orthopaedics [facility] [address] [place] [address] Carlito Mackay PA-C [address] [place] [address] Other Allergies No known active allergiesdocumented as of this encounter (statuses as of 10/30/2023) Medications Medication Sig Dispensed Refills Start Date [...] Active Additional Information Patient taking differently:0.4 mg [id number], Reported on 07/08/2023 Sertraline HCl 50 MG [...] as of this encounter (statuses as of 10/30/2023) Active Problems Problem Noted Date Diagnosed Date [...] as of this encounter (statuses as of 10/30/2023) Resolved Problems Problem Noted Date Diagnosed Date Resolved Date Stage 3 chronic kidney disease 07/08/2023 07/23/2023 documented as of this encounter (statuses as of 10/30/2023) Immunizations Name Administration Dates Next Due COVID-19 [...] Past Smokeless Tobacco: Never Comments:Mother smoked in [facility] growing up Alcohol Use Standard Drinks/Week [...] encounter Miscellaneous Notes * Telephone Encounter - Rebecca Licea OSA - 10/30/2023 9:33 AM EDT Appts cx per below message * Telephone Encounter - Dominga Pabon MED ASSIST - 10/29/2023 3:02 PM EDT Called patient, let him know that I had talked to Dr. Carrero and she is not uncomfortable giving gel injections before their 6 months, especially since she has never met him before. Informed patientthat Dr. Carrero had said she can give him other options, including a nerve block injection. Patient was understanding. * Telephone Encounter - Rebecca Licea OSA - 10/29/2023 2:41 PM EDT Patient stopped in today stating he is scheduled for gel injections and he knows they are not covered as it has not been 6 months He stated carlito said that he could get injections early. He is asking how much will they cost? Can he get an estimate? Also stated that Carlito told him that he might want to consider having the injections via US with and they may be less painful. Asking if the out of pocket cost would be more if he would gowith this option. Please reach out to patient documented in this encounter Plan of Treatment Upcoming Encounters Date Type Department Care Team (Late st Contact Info) Description 11/02/2023 10:00 AM EDT Office Visit Orthopaedics [facility] [address] [place] [address] Alfreda Carrero MD [address] [place] [address] 11/25/2023 9:45 AM EDT Office Visit Orthopaedics [place] 16 [facility] [place] [address] Chuy Arteaga MD 16 [facility] [place] [address] 12/17/2023 11:20 AM EDT Office Visit Dermatology, [address] [address] Ping Wilson PA-C [address] [place] [address] [place] [address] 02/29/2024 9:20 AM EDT Office Visit Family Practice [address] [place] [address] 293 [place] [address] Sakina Lares DO 293 [place] [address] 03/01/2024 1:30 PM EDT Imaging Cardiac Studies, [facility] 132 [facility] [place] [address] 04/06/2024 8:00 AM EDT Office Visit Urology, [facility] 132 [facility] [place] [address] Se Alatorre MD [address] [place] [address] [place] [address] 04/29/2024 9:00 AM EDT Office Visit Cardiology, [facility] 132 [facility] [place] [address] Virgil Mixon PASofieC 132 [facility] [place] [address] 08/05/2024 10:00 AM EST Nurse Only Ancillary [address] [place] [address] 293 [place] [address] College, Nurse Annual Wellness Visit [address] [place] [address] Health Maintenance Due Date Last Done Comments Hepatitis C Screening 1966 Cologuard 1993 Fecal Occult Blood Test 1993 Sigmoidoscopy 1993 Hepatitis B (3 of 3 - 19+ 3-dose series) 03/09/2008 01/05/2008, 09/09/2007 GFR 01/22/2024 07/24/2023, 02/11, 02/25/2023, Additional history exists Albumin/Creatinine Ratio 07/08/2024 07/08/2023 CKD HGB USE SMARTSET 44800 07/24/202407/24, 03/24/2023, 03/24/2023, Additional history exists CKD PHOS USE SMARTSET 16453 07/24/2024 07/24/2023 Depression Screening 08/04/2024 08/04/2023 DTaP,Tdap,and [...] filedocumented as of this encounter Care Teams Chemical Production Machine Operator Relationship Specialty Start Date End Date Sakina Lares DO [address] [facility] [address] PCP - General Family Medicine 04/07/22 documented as of this encounter
--- OUTSIDE RECORDS SUMMARY | 2024-04-05 14:43 | External Medical Summary | Summary of Care ---
Author Name Unknown Organization [facility] Address [address] [place] [address] Phone [phone] Care Team Providers Care Machinist Mechanic Name Role Phone Luda Sakina Valdes DO Primary Care Provider + [phone] Reason for Visit * Reason Comments Outpatient Testing Encounter Details Date Type Department Care Team (Late st Contact Info) Description 11/04/2023 8:20 AM EDT Laboratory Laboratory, [facility] [address] [place] [address] [facility] [address] [place] [address] Coronary artery calcification seen on CT scan; Dyslipidemia, goal LDL below 70; MyCode Research Other*[id number] Allergies No known active allergiesdocumented as of this encounter (statuses as of 11/04/2023) Medications Medication Sig Dispensed Refills Start Date [...] Active Additional Information Patient taking differently:0.4 mg [id number], Reported on 07/08/2023 Sertraline HCl 50 MG [...] as of this encounter (statuses as of 11/04/2023) Active Problems Problem Noted Date Diagnosed Date [...] as of this encounter (statuses as of 11/04/2023) Resolved Problems Problem Noted Date Diagnosed Date Resolved Date Stage 3 chronic kidney disease 07/08/2023 07/23/2023 documented as of this encounter (statuses as of 11/04/2023) Immunizations Name Administration Dates Next Due COVID-19 [...] Past Smokeless Tobacco: Never Comments:Mother smoked in [facility] growing up Alcohol Use [...] EDT Office Visit Orthopaedics [place] 16 [facility] [place] [address] Chuy Arteaga MD 16 [place] [address] 12/17/2023 11:20 AM EDT Office Visit Dermatology, [facility] [address] [place] [address] Ping Wilson PA-C [address] [place] [address] [place] [address] 02/29/2024 9:20 AM EDT Office Visit Family Practice [address] [place] [address] 293 [place] [address] Sakina Lares DO 293 [place] [address] 03/01/2024 1:30 PM EDT Imaging Card[facility] Studies, [facility] 132 [facility] [address] 04/06/2024 8:00 AM EDT Office Visit Urology, [facility] 132 [facility] [place] [address] Se Alatorre MD 27 [facility] [address] [place] [address] 04/29/2024 9:00 AM EDT Office Visit Cardiology, [facility] 132 [facility] [place] [address] Virgil Mixon PASofieC 132 [facility] [place] [address] 08/05/2024 10:00 AM EST Nurse Only Ancillary [address] [place] 293 [place] [address] College, Nurse Annual Wellness Visit [address] [facility] 293 [facility] [address] Pending Results Name Type Priority Associated Diagnoses Date /Time LIPID PANEL WITH DIRECT LDL IF TG IS HIGH Lab Routine Coronary artery calcification seen on CT scan Dyslipidemia, goal LDL below 70 11/04/2023 8:28 AM EDT COMPREHENSIVE METABOLIC PANEL Lab Routine Dyslipidemia, goal LDL below 70 11/04/2023 8:28 AM EDT MYCODE INITIAL ADULT Lab Routine My[employer] Research Other*[id number] 11/04/2023 8:28 AM EDT MYCODE INITIAL ADULT-PINK Lab Routine [employer] Other*[id number] 11/04/2023 8:28 AM EDT MYCODE SST1 Lab Routine [employer] Other*[id number] 11/04/2023 8:28 AM EDT MYCODE SST2 Lab Routine [employer] Other*[id number] 11/04/2023 8:28 AM EDT BILIRUBIN, DIRECT Lab Routine Coronary artery calcification seen on CT scan Dyslipidemia, goal LDL below 70 11/04/2023 8:28 AM EDT Health Maintenance Due Date Last Done Comments Hepatitis C Screening 1966 Cologuard 1993 Fecal Occult Blood Test 1993 Sigmoidoscopy 1993 Hepatitis B (3 of 3 - 19+ 3-dose series) 03/09/2008 01/05/2008, 09/09/2007 GFR 01/22/2024 07/24/2023, 02/11, 02/25/2023, Additional history exists Albumin/Creatinine Ratio 07/08/2024 07/08/2023 CKD HGB USE SMARTSET 84695 07/24/202407/24, 03/24/2023, 03/24/2023, Additional history exists CKD PHOS USE SMARTSET 80362 07/24/2024 07/24/2023 Depression Screening 08/04/2024 08/04/2023 DTaP,Tdap,and [...] Diagnosis Coronary artery calcification seen on CT scan Dyslipidemia, goal LDL below 70 Other and unspecified hyperlipidemia My[employer] Research Other*[id number] documented in this encounter Care Teams Machinist Mechanic Relationship Specialty Start Date End Date Sakina Lares DO 293 [place] [address] PCP - General Family Medicine 04/07/22 documented as of this encounter
--- OUTSIDE RECORDS SUMMARY | 2024-04-05 14:43 | External Medical Summary | Summary of Care ---
Author Name Unknown Organization [facility] Address [address] [facility] [address] Phone [phone] Care Team Providers Care Bulk Loader Name Role Phone Sakina Lares DO Primary Care Provider Reason for Visit * Reason Onset Date Comments Other 10/29/2023 Encounter Details Date Type Department Care Team (Late st Contact Info) Description 10/29/[address] [facility] [address] [place] [address] Carlito Mackay PA-C [address] [place] [address] Other Allergies No known active allergiesdocumented as of this encounter (statuses as of 10/29/2023) Medications Medication Sig Dispensed Refills Start Date [...] Active Additional Information Patient taking differently:0.4 mg [id number], Reported on 07/08/2023 Sertraline HCl 50 MG [...] as of this encounter (statuses as of 10/29/2023) Active Problems Problem Noted Date Diagnosed Date [...] as of this encounter (statuses as of 10/29/2023) Resolved Problems Problem Noted Date Diagnosed Date Resolved Date Stage 3 chronic kidney disease 07/08/2023 07/23/2023 documented as of this encounter (statuses as of 10/29/2023) Immunizations Name Administration Dates Next Due COVID-19 [...] encounter Miscellaneous Notes * Telephone Encounter - Dominga Pabon MED [...] 11/02/2023 10:00 AM EDT Office Visit Orthopaedics [facility] [address] [place] [address] Alfreda Carrero MD 132 [place] [address] 11/09/2023 10:30 AM EDT Office Visit Orthopa[facility] 132 [place] [address] Alfreda Carrero MD 132 [place] [address] 11/16/2023 11:30 AM EDT Office Visit Orthopa[facility] 132 [facility] [place] [address] Alfreda Carrero MD [address] [facility] [address] [address] 11/25/2023 9:45 AM EDT [facility] [address] [place] [phone] Chuy Arteaga MD 16 [place], [place] [address] 12/17/2023 11:20 AM EDT Office Visit Dermatology[address] [address] Ping Wilson PA-C [address] [place] [address] [place] [address] 02/29/2024 9:20 AM EDT Office Visit Family Practice [address] [place] [address] [address] [place] [phone] Sakina Lares DO 293 [place] [address] 03/01/2024 1:30 PM EDT Imaging Cardiac Studies, [facility] [address] 04/06/2024 8:00 AM EDT Office Visit Urology, [facility] 132 [place] [address] Se Alatorre MD [address] [address] [place] [address] 04/29/2024 9:00 AM EDT Office Visit Cardiology, [facility] 132 [facility] [place] [address] Virgil Mixon PA-C [address] [place] [address] 08/05/2024 10:00 AM EST Nurse Only Ancillary [address] [place] [address] [place] [address] College, Nurse Annual Wellness Visit [address] [facility] [address] [place], [place] [address] Health Maintenance Due Date Last Done Comments Cologuard 1993 Fecal Occult Blood Test 1993 Sigmoidoscopy 1993 Hepatitis B (3 of 3 - 19+ 3-dose series) 03/09/2008 01/05/2008, 09/09/2007 Hepatitis C Screening 10/29/2023 Postpo angel from 1966 (Patient Declined After Education) GFR 01/22/2024 07/24/2023, 02/11, 02/25/2023, Additional history exists Albumin/Creatinine Ratio 07/08/2024 07/08/2023 CKD HGB USE SMARTSET 65778 07/24/202407/24, 03/24/2023, 03/24/2023, Additional history exists CKD PHOS USE SMARTSET 97814 07/24/2024 07/24/2023 Depression Screening 08/04/2024 08/04/2023 DTaP,Tdap,and [...] filedocumented as of this encounter Care Teams Bulk Loader Relationship Specialty Start Date End Date Sakina Lares DO [address] [place] [address] PCP - General Family Medicine 04/07/22 documented as of this encounter
--- OUTSIDE RECORDS SUMMARY | 2024-04-05 14:43 | External Medical Summary ---
Author Name Unknown Address Unknown Organization K01:[facility] [place] [address] [place] [address] Laboratory Report Ordering Provider Test Date Status GOLDEN LIRA 11/04/2023 08:28:21 Final Observation Date Value Abnormality Reference (Units ) Status MYCODE SPECIMEN-LAV 11/04/2023 08:28:21 Freezing of extracted DNA, whole blood and/or serum. Final Performing Location [facility] [place] [address] [facility] [address]
--- OUTSIDE RECORDS SUMMARY | 2024-04-05 14:43 | External Medical Summary ---
Author Name Unknown Address Unknown Organization K01:[facility] [place] [address] [place] [address] Laboratory Report Ordering Provider Test Date Status MO ROBERT 11/04/2023 08:28:21 Final Observation Date Value Abnormality Reference (Units ) Status Bilirubin, Direct 11/04/2023 08:28:21 <0.2 0. 0-0.3 (mg/dL) Final Performing Location LABORATORY C - [address] [place] [address]
--- OUTSIDE RECORDS SUMMARY | 2024-04-05 14:43 | External Medical Summary | Summary of Care ---
Author Name Unknown Organization [facility] Address [address] [place] [address] Phone [phone] Care Team Providers Care Podiatric Technician Name Role Phone NataliSakina fritz Primary Care Provider [phone] Encounter Details Date Type Department Care Team (Late st Contact Info) Description 11/02/2023 Orders Only Outcomes Research Department [address] [place] [address] Mabel Babin CHRA [employer] Research Other*[id number] Allergies No known active allergiesdocumented as of [...] Active Additional Information Patient taking differently:0.4 mg [id number], Reported on 07/08/2023 Sertraline HCl 50 MG [...] MCG/0.3 mL, 12 YRS AND ABOVE, IM ([facility]) 05/04/2023 COVID-19, mRNA, LNP-s, PF, B [...] [place] [phone] Chuy Arteaga MD 16 [place] [address] 12/17/2023 11:20 AM EDT Office Visit Dermatology[address] [address] Ping Wilson PA-C [address] [place] [address] [place] [address] 02/29/2024 9:20 AM EDT Office Visit Family Practice [address] [place] [address] 293 [place] [phone] Sakina Lares DO 293 [place] [address] 03/01/2024 1:30 PM EDT Imaging Cardiac Studies, [facility] [address] 04/06/2024 8:00 AM EDT Office Visit Urology, [facility] 132 [facility] [place] [address] Se Alatorre MD [address] [address] 04/29/2024 9:00 AM EDT Office Visit Cardiology, [facility] [place] 132 [facility] [place] [address] Virgil Mixon PA-C 132 [facility] [address] 08/05/2024 10:00 AM EST Nurse Only Ancillary [address] [place] [address] 293 [place] [address] College, Nurse Annual Wellness Visit [address] [place] [address], [place] [address] Scheduled Orders Name Type Priority Associated Diagnoses Orde r Schedule MYCODE INITIAL ADULT Lab Routine MyCode Research Other*[id number] Expected: 11/02/2023 (Approximate), Expires: 11/21/2024 Health Maintenance Due Date Last Done Comments Hepatitis C Screening 1966 Cologuard 1993 Fecal Occult Blood Test 1993 Sigmoidoscopy 1993 Hepatitis B (3 of 3 - 19+ 3-dose series) 03/09/2008 01/05/2008, 09/09/2007 GFR 01/22/2024 07/24/2023, 02/11, 02/25/2023, Additional history exists Albumin/Creatinine Ratio 07/08/2024 07/08/2023 CKD HGB USE SMARTSET 90056 07/24/202407/24, 03/24/2023, 03/24/2023, Additional history exists CKD PHOS USE SMARTSET 47329 07/24/2024 07/24/2023 Depression Screening 08/04/2024 08/04/2023 DTaP,Tdap,and [...] this encounter Visit Diagnoses Diagnosis MyCode Research Other*[id number] documented in this encounter Care Teams Podiatric Technician Relationship Specialty Start Date End Date Sakina Lares DO [address] [place] [address] PCP - General Family Medicine 04/07/22 documented as of this encounter
--- OUTSIDE RECORDS SUMMARY | 2024-04-05 14:43 | External Medical Summary | Summary of Care ---
Author Name Unknown Organization [facility] Address [address] [place] [facility] [place] [address] Phone [phone] Care Team Providers Care Scaler Packer Name Role Phone Sakina Lares DO Primary Care Provider [phone] Reason for Visit * Reason Onset Date Comments Other 10/29/2023 Encounter Details Date Type Department Care Team (Late st Contact Info) Description 10/29/2023 Telephone Orthopaedics [facility] [address] [employer] [address] [place] [address] Carlito Mackay PA-C [address] [place] [address] Other Allergies No known active allergiesdocumented as [...] Active Additional Information Patient taking differently:0.4 mg [id number], Reported on 07/08/2023 Sertraline HCl 50 MG [...] Past Smokeless Tobacco: Never Comments:[facility] Alcohol Use Standard Drinks/Week [...] Description 11/02/2023 10:00 AM EDT Office Visit [facility] [address] [place] [address] Alfreda Carrero MD [address] [place] [address] 11/09/2023 10:30 AM EDT Office Visit [facility] [address] [address] Alfreda Carrero MD [address] [place] [address] 11/16/2023 11:30 AM EDT Office Visit [facility] 132 [place] [address] Alfreda Carrero MD [address] [place] [address] 11/25/2023 9:45 AM EDT Office Visit [facility] [place] [address] [place] [address] Chuy Arteaga MD 16 [place] [address] 12/17/2023 11:20 AM EDT Office Visit Dermatology[address] [address] Ping Wilson PA-C [address] [place] [address] [place] [address] 02/29/2024 9:20 AM EDT Office Visit Family Practice [address] [place] [address] 293 [place] [phone] Sakina Lares DO 293 [place] [address] 03/01/2024 1:30 PM EDT Imaging Cardiac Studies, [facility] 132 [facility] [address] 04/06/2024 8:00 AM EDT Office Visit Urology, [facility] 132 [facility] [place] [address] Se Alatorre MD [address] [address] [place] [address] 04/29/2024 9:00 AM EDT Office Visit Cardiology, [facility] 132 [facility] [place] [address] Virgil Mixon PA-C 132 [facility] [address] 08/05/2024 10:00 AM EST Nurse Only Ancillary [address] [place] [address] 293 [place] [address] College, Nurse Annual Wellness Visit [address] [place] [address] Health Maintenance Due Date Last Done Comments Cologuard 1993 Fecal Occult Blood Test 1993 Sigmoidoscopy 1993 Hepatitis B (3 of 3 - 19+ 3-dose series) 03/09/2008 01/05/2008, 09/09/2007 Hepatitis C Screening 10/29/2023 Postpo angel from 1966 (Patient Declined After Education) GFR 01/22/2024 07/24/2023, 0807/2022, 02/25/2023, Additional history exists Albumin/Creatinine Ratio 07/08/2024 07/08/2023 CKD HGB USE SMARTSET 97626 07/24/202407/24, 03/24/2023, 03/24/2023, Additional history exists CKD PHOS USE SMARTSET 89353 07/24/2024 07/24/2023 Depression Screening 08/04/2024 08/04/2023 DTaP,Tdap,and [...] filedocumented as of this encounter Care Teams Scaler Packer Relationship Specialty Start Date End Date Sakina Lares DO [address] [facility] [place] [address] PCP - General Family Medicine 04/07/22 documented as of this encounter
--- OUTSIDE RECORDS SUMMARY | 2024-04-05 14:43 | External Medical Summary | Summary of Care ---
Author Name Unknown Organization [facility] Address [address] [place] [address] Phone [phone] Care Team Providers Care Javascript Software Engineer Name Role Phone Sakina Lares DO Primary Care Provider [phone] Reason for Referral * Evaluate & Treat - Unlimited Visits (Within 10 days (routine)) - Authorized Specialty Diagnoses / Procedures Referred By Tiffany daugherty Referred To Contact Physical Therapy / Physical Medicine And Rehab Diagnoses Tendinitis of long head of biceps brachii of right shoulder Osteoarthritis of right glenohumeral joint Carlito Mackay PA-C [address] [place] [address] Referral ID Status Reason Start Date Expiration Date Visits Requested Visits Authorized [id number] Authorized Specialty Services Required 10/21/[phone] Question Answer Referral Priority Within 10 days (routine) Where should this appointment be scheduled? [facility] Reason for Visit * Reason Comments NEW PATIENT Right shoulder Encounter Details Date Type Department Care Team (Late st Contact Info) Description 10/21/2023 3:00 PM EDT Office Visit Orthopaedics [facility] [address] [place] [address] Carlito Mackay PA-C [address] [place] [address] Tendinitis of long head of biceps brachii of right shoulder*; Osteoarthritis of right glenohumeral joint Allergies No known active allergiesdocumented as of this encounter (statuses as of 10/21/2023) Medications Medication Sig Dispensed Refills Start Date [...] Active Additional Information Patient taking differently:0.4 mg [id number], Reported on 07/08/2023 Sertraline HCl 50 MG Oral Tablet (Zoloft) TAKE ONE TABLET BY MOUTH EVERY MORNING 100 Tablet 3 05/12/2023 05/11/2024 Active Zolpidem Tartrate 5 MG Oral Tablet (Ambien)Indication s:Insomnia, unspecified type Take 0.5 Tablets by mouth at bedtime as needed for Sleep. 30 Tablet 0 06/02/2023 Active Fluorouracil 5 % External Cream (Efudex)Indication s:Actinic [...] as of this encounter (statuses as of 10/21/2023) Active Problems Problem Noted Date Diagnosed Date Chronic kidney disease, stage 3a 03/23/2023 Overview: [...] as of this encounter (statuses as of 10/21/2023) Resolved Problems Problem Noted Date Diagnosed Date Resolved Date Stage 3 chronic kidney disease 07/08/2023 07/23/2023 documented as of this encounter (statuses as of 10/21/2023) Immunizations Name Administration Dates Next Due COVID-19 [...] Tobacco: Never Comments:Mother smoked in [facility] growing up Alcohol Use Standard Drinks/Week Comments [...] Progress Notes * Carlito Mackay PA-C - 10/21/2023 2:55 PM EDT Established patient with a new complaint of right shoulder pain. Points towards the approximate location of the bicipital groove anterior shoulder as being painful. States it does not feel like his left shoulder. He has well documented left glenohumeral joint osteoarthritis that has failed conservative measures and ultimately underwent an PLEITEZ Gelsyn 3 injection series providing him with suitable relief. Denies any injury or fall in the right shoulder as of late. He will need x-rays of the right shoulder today. Denies numbness or tingling. Denies any weakness or loss of motion. Denies any symptoms coming from cervical spine complete review of systems negative General: alert and oriented x3 male, no acute distress, appears currently stated age, pleasant, well nourished Skin: Right upper extremity including shoulder does not reveal any erythema, ecchymosis, abrasion, laceration, skin breakdown otherwise Neurovascular: Right upper extremity reveals distal pulses +2, capillary refill is under 2 seconds,good sensation light touch, +5 progress worker strength, axillary median ulnar radial nerve assess fully intact Musculoskeletal: Exam of the right shoulder: Forward Flexion: 180 degrees Abduction: 180 degrees with pain at endpoints pointing towards the bicipital groove External rotation at 0 degrees: 70 degrees Internal Rotation: T7 Strength: Forward flexion: 5/5 Abduction: 5/5 External Rotation: 5/5 Internal Rotation: 5/5 Speed test: Positive Yergason's: negative Tender to palpation ACJ (acromioclavicular joint): negative Tender to palpation LHB (long head of biceps): Positive Monson test: negative Humacao test: negative Hornblower: negative Lift off: negative Belly Press: negative Bear Hug: negative External lag sign: negative Cross-body adduction: negative Sulcus sign: negative X-rays of the patient's right shoulder reveal moderate degenerative changes glenohumeral joint withnarrowing and osteophytosis in the inferior joint aspect glenoid and humeral head. No superior migration of the humeral head indicative of chronic cuff arthropathy no advanced changes in the AC joint. Unable to identify any type of calcific change at the rotator cuff footprint. No acute findings such as fracture dislocation subluxation. Unable to identify any type of obvious cystic change or masses in the bone. Personal interpretation and documentation regarding today's plain film radiographs performed by myself. Impression: Right long head biceps tendinitis with underlying glenohumeral joint osteoarthritis Plan: Today 's findings were discussed with the patient. They were educated regarding their diagnosis. Multiple treatment options discussed and agreed upon, including physical therapy, cryotherapy, topical agents, behavior modification rest. Minimal relief in 6 weeks and could potentially MRI to qualify the patient for injection in the bicipital groove ultrasound-guided. The patient has no other questions or concerns. Pleased with today 's care. Call sooner if needed. Of note, the patient states he has upcoming appointments scheduled with Dr. Carrero for 3 shots of Gelsyn 3 in the left glenohumeral joint that those are overall working well for him, not interested in arthroplasty This chart was completed in part utilizing rocket staff Speech Voice Recognition Software. Grammatical errors, random [...] documented in this encounter Nursing Notes * Dominga Pabon MED ASSIST - 10/21/2023 2:50 PM EDT Patient presents today for right shoulder pain. documented in this encounter Plan of Treatment Upcoming Encounters Date Type Department Care Team (Late st Contact Info) Description 10/28/2023 9:20 AM EDT Office Visit [address] 293 [place] [address] Sakina Lares DO 293 [place] [address] 10/29/2023 2:00 PM EDT Office Visit Cardiology, [facility] 132 [place] [address] Virgil Mixon PA-C [facility] [place] [address] 11/02/2023 10:00 AM EDT Office Visit Orthopaedics [facility] [address] [facility] [address] Alfreda Carrero MD [address] [place] [address] 11/09/2023 10:30 AM EDT Office Visit Orthopaedics [facility] [address] [place] [address] Alfreda Carrero MD 132 [facility] [place] [address] 11/16/2023 11:30 AM EDT Office Visit Orthopaedics [facility] 132 [facility] [place] [address] Alfreda Carrero MD 132 [facility] [place] [address] 11/25/2023 9:45 AM EDT Office Visit Orthopaedics [facility] 16 [place] [address] Chuy Arteaga MD 16 [place] [address] 12/17/2023 11:20 AM EDT Office Visit Dermatology[address] [address] Ping Wilson PA-C [address] [place] [address] [place] [address] 04/06/2024 8:00 AM EDT Office Visit Urology, [facility] 132 [facility] [place] [address] eS Alatorre MD [address] [address] 08/05/2024 10:00 AM EST Nurse Only Ancillary 65 [facility] 293 [facility], [place] [address] College, Nurse Annual Wellness Visit [address], [place] [address] Pending Results Name Type Priority Associated Diagnoses Date /Time XR SHOULDER, 2 OR MORE VIEWS Medical Imaging Routine 10/21/2023 3:17 PM EDT Scheduled Referrals Name Type Priority Associated Diagnoses Orde r Schedule PHYSICAL THERAPY REFERRAL OP Referral Within 10 days (routine) Tendinitis of long head of biceps brachii of right shoulder Osteoarthritis of right glenohumeral joint Ordered: 10/21/2023 Health Maintenance Due Date Last Done Comments Hepatitis C Screening 1968 Cologuard 1993 Fecal Occult Blood Test 1993 Sigmoidoscopy 1993 Hepatitis B (3 of 3 - 19+ 3-dose series) 03/09/2008 01/05/2008, 09/09/2007 GFR 01/22/2024 07/24/2023, 02/11, 02/25/2023, Additional history exists Albumin/Creatinine Ratio 07/08/2024 07/08/2023 CKD HGB USE SMARTSET 69401 07/24/202407/24, 03/24/2023, 03/24/2023, Additional history exists CKD PHOS USE SMARTSET 22933 07/24/2024 07/24/2023 Depression Screening 08/04/2024 08/04/2023 DTaP,Tdap,and Td Vaccines (2 - Td or Tdap) 04/09/2026 04/09/2016 Colonoscopy 12/03/2026 12/03/2016 Colorectal Cancer Screening 12/03/2026 Lipid Panel 07/24/2028 07/24/2023, 02/11, 04/21/2022, Additional history exists Pneumococcal Vaccine: 65+ Years Completed 04/08/2018, 04/09/2016 [...] as of this encounter Visit Diagnoses Diagnosis Tendinitis of long head of biceps brachii of right shoulder- Primary Osteoarthritis of right glenohumeral joint documented in this encounter Care Teams Javascript Software Engineer Relationship Specialty Start Date End Date Sakina Lares DO [address] [place] [address] PCP - General Family Medicine 04/07/22 documented as of this encounter
--- OUTSIDE RECORDS SUMMARY | 2024-04-05 14:44 | External Medical Summary | Summary of Care ---
Author Name Unknown Organization [facility] Address [address] [place] [address] Phone [phone] Care Team Providers Care Solar Hot Water Installer Name Role Phone NataliSakina fritz Primary Care Provider + [phone] Encounter Details Date Type Department Care Team (Late st Contact Info) Description 10/19/2023 Patient Reported Data Patient Survey Ortho OBERD Allergies No known active allergiesdocumented as of this encounter (statuses as of 10/19/2023) Medications Medication Sig Dispensed Refills Start Date [...] Active Additional Information Patient taking differently:0.4 mg [id number], Reported on 07/08/2023 Sertraline HCl 50 MG [...] as of this encounter (statuses as of 10/19/2023) Active Problems Problem Noted Date Diagnosed Date [...] as of this encounter (statuses as of 10/19/2023) Resolved Problems Problem Noted Date Diagnosed Date Resolved Date Stage 3 chronic kidney disease 07/08/2023 07/23/2023 documented as of this encounter (statuses as of 10/19/2023) Immunizations Name Administration Dates Next Due COVID-19 [...] Past Smokeless Tobacco: Never Comments:Mother smoked in [facility] growing up Alcohol Use Standard [...] 10/21/2023 3:00 PM EDT Office Visit Orthopaedics [facility] [address] [place] [address] Carlito Mackay PA-C [address] [place] [address] 10/28/2023 9:20 AM EDT Office Visit Family Practice [address] [place] [address] 293 [place] [address] Sakina Lares DO 293 [place] [address] 10/29/2023 2:00 PM EDT Office Visit Cardiology, [facility] [address] [facility] [place] [address] Virgil Mixon PA-C [address] [place] [address] 11/02/2023 10:00 AM EDT Office Visit Orthopaedics [facility] 132 [facility] [address] Alfreda Carrero MD [address] [place] [address] 11/09/2023 10:30 AM EDT Office Visit Orthopaedics [facility] [address] [facility] [place] [address] Alfreda Carrero MD [address] [place] [address] 11/16/2023 11:30 AM EDT Office Visit Orthopaedics [facility] [address] [facility] [place] [address] Alfreda Carrero MD 132 [facility] [place] [address] 11/25/2023 9:45 AM EDT Office Visit Orthopaedics [facility] 16 [place] [address] Chuy Arteaga MD 16 [place], [place] [address] 12/17/2023 11:20 AM EDT Office Visit Dermatology[address] [address] Ping Wilson PA-C [address] [place] [address] [place] [address] 04/06/2024 8:00 AM EDT Office Visit Urology, [facility] 132 [facility] [place] [address] Se Alatorre MD [address] [address] 08/05/2024 10:00 AM EST Nurse Only Ancillary 65 [facility] 293 [place] [address] College, Nurse Annual Wellness Visit [address] [address] Health Maintenance Due Date Last Done Comments Hepatitis C Screening 1966 Cologuard 1993 Fecal Occult Blood Test 1993 Sigmoidoscopy 1993 Hepatitis B (3 of 3 - 19+ 3-dose series) 03/09/2008 01/05/2008, 09/09/2007 GFR 01/22/2024 07/24/2023, 0807/2022, 02/25/2023, Additional history exists Albumin/Creatinine Ratio 07/08/2024 07/08/2023 CKD HGB USE SMARTSET 15118 07/24/202407/24, 03/24/2023, 03/24/2023, Additional history exists CKD PHOS USE SMARTSET 92818 07/24/2024 07/24/2023 Depression Screening 08/04/2024 08/04/2023 DTaP,Tdap,and Td Vaccines (2 - Td or Tdap) 04/09/2026 04/09/2016 Colonoscopy 12/03/2026 12/03/2016 Colorectal Cancer Screening 12/03/2026 Lipid Panel 07/24/2028 07/24/2023, 0807/2022, 04/21/2022, Additional history exists Pneumococcal Vaccine: 65+ [...] filedocumented as of this encounter Care Teams Solar Hot Water Installer Relationship Specialty Start Date End Date Sakina Lares DO [address] [place] [address] PCP - General Family Medicine 04/07/22 documented as of this encounter
--- OUTSIDE RECORDS SUMMARY | 2024-04-05 14:44 | External Medical Summary | Summary of Care ---
Author Name Unknown Organization [facility] Address [address] [place] [address] Phone [phone] Care Team Providers Care Malt Roaster Name Role Phone NataliSakina fritz Primary Care Provider + [phone] Encounter Details Date Type Department Care Team [...] Active Additional Information Patient taking differently:0.4 mg [id number], Reported on 07/08/2023 Sertraline HCl 50 MG [...] Past Smokeless Tobacco: Never Comments:Mother smoked in [facility] growing up Alcohol Use Standard [...] 10/21/2023 3:00 PM EDT Office Visit Orthopaedics [facility] [address] [place] [address] Carlito Mackay PA-C [address] [place] [address] 10/28/2023 9:20 AM EDT Office Visit Family Practice [address] [place] [address] 293 [place] [address] Sakina Lares DO 293 [place] [address] 10/29/2023 2:00 PM EDT Office Visit Cardiology, [facility] [address] [facility] [place] [address] Virgil Mixon PA-C [address] [place] [address] 11/02/2023 10:00 AM EDT Office Visit Orthopaedics [facility] 132 [facility] [place] [address] Alfreda Carrero MD [address] [place] [address] 11/09/2023 10:30 AM EDT Office Visit Orthopaedics [facility] [address] [facility] [place] [address] Alfreda Carrero MD [address] [place] [address] 11/16/2023 11:30 AM EDT Office Visit Orthopaedics [facility] [address] [facility] [place] [address] Alfreda Carrero MD 132 [facility] [place] [address] 11/25/2023 9:45 AM EDT Office Visit Orthopaedics [facility] 16 [place] [address] Chuy Arteaga MD 16 [place], [place] [address] 12/17/2023 11:20 AM EDT Office Visit Dermatology[address] [address] Ping Wilson PA-C [address] [place] [address] [place] [address] 04/06/2024 8:00 AM EDT Office Visit Urology, [facility] 132 [facility] [place] [address] Se Alatorre MD [address] [address] 08/05/2024 10:00 AM EST Nurse Only Ancillary 65 [facility] 293 [place] [address] College, Nurse Annual Wellness Visit [address] [address] Health Maintenance Due Date Last Done Comments Hepatitis C Screening 1966 Cologuard 1993 Fecal Occult Blood Test 1993 Sigmoidoscopy 1993 Hepatitis B (3 of 3 - 19+ 3-dose series) 03/09/2008 01/05/2008, 09/09/2007 GFR 01/22/2024 07/24/2023, 0807/2022, 02/25/2023, Additional history exists Albumin/Creatinine Ratio 07/08/2024 07/08/2023 CKD HGB USE SMARTSET 93670 07/24/202407/24, 03/24/2023, 03/24/2023, Additional history exists CKD PHOS USE SMARTSET 85084 07/24/2024 07/24/2023 Depression Screening 08/04/2024 08/04/2023 DTaP,Tdap,and [...] filedocumented as of this encounter Care Teams Malt Roaster Relationship Specialty Start Date End Date Sakina Lares DO [address] [place] [address] PCP - General Family Medicine 04/07/22 documented as of this encounter
--- OUTSIDE RECORDS SUMMARY | 2024-04-05 14:44 | External Medical Summary | Summary of Care ---
Author Name Unknown Organization [facility] Address [address] [place] [address] Phone [phone] Care Team Providers Care Behaviour Support Teacher Name Role Phone NataliSakina fritz Primary Care Provider + [phone] Encounter Details Date Type Department Care Team [...] Active Additional Information Patient taking differently:0.4 mg [id number], Reported on 07/08/2023 Sertraline HCl 50 MG [...] Past Smokeless Tobacco: Never Comments:Mother smoked in [facility] growing up Alcohol Use Standard Drinks/Week [...] 10/21/2023 3:00 PM EDT Office Visit Orthopaedics [facility] [address] [place] [address] Carlito Mackay PA-C [address] [place] [address] 10/28/2023 9:20 AM EDT Office Visit Family Practice [address] [place] [address] 293 [place] [address] Sakina Lares DO 293 [place] [address] 10/29/2023 2:00 PM EDT Office Visit Cardiology, [facility] [place] [address] Virgil Mixon PA-C [address] [place] [address] 11/02/2023 10:00 AM EDT Office Visit Orthopaedics [facility] 132 [facility] [place] [address] Alfreda Carrero MD [address] [place] [address] 11/09/2023 10:30 AM EDT Office Visit Orthopaedics [facility] [address] [facility] [place] [address] Alfreda Carrero MD [address] [place] [address] 11/16/2023 11:30 AM EDT Office Visit Orthopaedics [facility] [address] [facility] [place] [address] Alfreda Carrero MD 132 [facility] [place] [address] 11/25/2023 9:45 AM EDT Office Visit Orthopaedics [facility] 16 [place] [address] Chuy Arteaga MD 16 [place], [place] [address] 12/17/2023 11:20 AM EDT Office Visit Dermatology[address] [address] Ping Wilson PA-C [address] [place] [address] [place] [address] 04/06/2024 8:00 AM EDT Office Visit Urology, [facility] 132 [facility] [place] [address] Se Alatorre MD [address] [address] 08/05/2024 10:00 AM EST Nurse Only Ancillary 65 [facility] 293 [place] [address] College, Nurse Annual Wellness Visit [address] [address] Health Maintenance Due Date Last Done Comments Hepatitis C Screening 1966 Cologuard 1993 Fecal Occult Blood Test 1993 Sigmoidoscopy 1993 Hepatitis B (3 of 3 - 19+ 3-dose series) 03/09/2008 01/05/2008, 09/09/2007 GFR 01/22/2024 07/24/2023, 0807/2022, 02/25/2023, Additional history exists Albumin/Creatinine Ratio 07/08/2024 07/08/2023 CKD HGB USE SMARTSET 83964 07/24/202407/24, 03/24/2023, 03/24/2023, Additional history exists CKD PHOS USE SMARTSET 40840 07/24/2024 07/24/2023 Depression Screening 08/04/2024 08/04/2023 DTaP,Tdap,and [...] filedocumented as of this encounter Care Teams Behaviour Support Teacher Relationship Specialty Start Date End Date Sakina Lares DO [address] [place] [address] PCP - General Family Medicine 04/07/22 documented as of this encounter
--- OUTSIDE RECORDS SUMMARY | 2024-04-05 14:44 | External Medical Summary | Summary of Care ---
Author Name Unknown Organization [facility] Address [address] [place] [address] Phone [phone] Care Team Providers Care Glue Sprayer Name Role Phone NataliSakina fritz Primary Care Provider + [phone] Encounter Details Date Type Department Care Team [...] Active Additional Information Patient taking differently:0.4 mg [id number], Reported on 07/08/2023 Sertraline HCl 50 MG [...] Past Smokeless Tobacco: Never Comments:Mother smoked in [facility] growing up Alcohol Use Standard Drinks/Week [...] 10/21/2023 3:00 PM EDT Office Visit Orthopaedics [facility] [address] [place] [address] Carlito Mackay PA-C [address] [place] [address] 10/28/2023 9:20 AM EDT Office Visit Family Practice [address] [place] [address] 293 [facility] [place] [address] Sakina Lares DO 293 [place] [address] 10/29/2023 2:00 PM EDT Office Visit Cardiology, [facility] [place] [address] Virgil Mixon PA-C [address] [place] [address] 11/02/2023 10:00 AM EDT Office Visit Orthopaedics [facility] 132 [facility] [place] [address] Alfreda Carrero MD [address] [place] [address] 11/09/2023 10:30 AM EDT Office Visit Orthopaedics [facility] [address] [facility] [place] [address] Alfreda Carrero MD [address] [place] [address] 11/16/2023 11:30 AM EDT Office Visit Orthopaedics [facility] [address] [facility] [place] [address] Alfreda Carrero MD 132 [facility] [place] [address] 11/25/2023 9:45 AM EDT Office Visit Orthopaedics [facility] 16 [place] [address] Chuy Arteaga MD 16 [place], [place] [address] 12/17/2023 11:20 AM EDT Office Visit Dermatology[address] [address] Ping Wilson PA-C [address] [place] [address] [place] [address] 04/06/2024 8:00 AM EDT Office Visit Urology, [facility] 132 [facility] [place] [address] Se Alatorre MD [address] [address] 08/05/2024 10:00 AM EST Nurse Only Ancillary 65 [facility] 293 [place] [address] College, Nurse Annual Wellness Visit [address] [address] Health Maintenance Due Date Last Done Comments Hepatitis C Screening 1966 Cologuard 1993 Fecal Occult Blood Test 1993 Sigmoidoscopy 1993 Hepatitis B (3 of 3 - 19+ 3-dose series) 03/09/2008 01/05/2008, 09/09/2007 GFR 01/22/2024 07/24/2023, 0807/2022, 02/25/2023, Additional history exists Albumin/Creatinine Ratio 07/08/2024 07/08/2023 CKD HGB USE SMARTSET 06149 07/24/202407/24, 03/24/2023, 03/24/2023, Additional history exists CKD PHOS USE SMARTSET 52108 07/24/2024 07/24/2023 Depression Screening 08/04/2024 08/04/2023 DTaP,Tdap,and [...] filedocumented as of this encounter Care Teams Glue Sprayer Relationship Specialty Start Date End Date Sakina Lares DO [address] [place] [address] PCP - General Family Medicine 04/07/22 documented as of this encounter
--- OUTSIDE RECORDS SUMMARY | 2024-04-05 14:44 | External Medical Summary | Summary of Care ---
Author Name Unknown Organization [facility] Address [address] [place] [address] Phone [phone] Care Team Providers Care Baggage Inspector Name Role Phone NataliSakina fritz Primary Care Provider + [phone] Encounter Details Date Type Department Care Team [...] Active Additional Information Patient taking differently:0.4 mg [id number], Reported on 07/08/2023 Sertraline HCl 50 MG [...] Past Smokeless Tobacco: Never Comments:Mother smoked in [facility] growing up Alcohol Use [...] 10/21/2023 3:00 PM EDT Office Visit Orthopaedics [facility] [address] [place] [address] Carlito Mackay PA-C [address] [place] [address] 10/28/2023 9:20 AM EDT Office Visit Family Practice [address] [place] [address] 293 [facility] [place] [address] Sakina Lares DO 293 [place] [address] 10/29/2023 2:00 PM EDT Office Visit Cardiology, [facility] [place] [place] [address] Virgil Mixon PA-C [address] [place] [address] 11/02/2023 10:00 AM EDT Office Visit Orthopaedics [facility] 132 [facility] [place] [address] Alfreda Carrero MD [address] [place] [address] 11/09/2023 10:30 AM EDT Office Visit Orthopaedics [facility] [address] [facility] [place] [address] Alfreda Carrero MD [address] [place] [address] 11/16/2023 11:30 AM EDT Office Visit Orthopaedics [facility] [address] [facility] [place] [address] Alfreda Carrero MD 132 [facility] [place] [address] 11/25/2023 9:45 AM EDT Office Visit Orthopaedics [facility][1] 16 [place] [address] Chuy Arteaga MD 16 [place], [place] [address] 12/17/2023 11:20 AM EDT Office Visit Dermatology[address] [address] Ping Wilson PA-C [address] [place] [address] [place] [address] 04/06/2024 8:00 AM EDT Office Visit Urology, [facility] 132 [facility] [place] [address] Se Alatorre MD [address] [address] 08/05/2024 10:00 AM EST Nurse Only Ancillary 65 [facility] 293 [place] [address] College, Nurse Annual Wellness Visit [address] [address] Health Maintenance Due Date Last Done Comments Hepatitis C Screening 1966 Cologuard 1993 Fecal Occult Blood Test 1993 Sigmoidoscopy 1993 Hepatitis B (3 of 3 - 19+ 3-dose series) 03/09/2008 01/05/2008, 09/09/2007 GFR 01/22/2024 07/24/2023, 0807/2022, 02/25/2023, Additional history exists Albumin/Creatinine Ratio 07/08/2024 07/08/2023 CKD HGB USE SMARTSET 93774 07/24/202407/24, 03/24/2023, 03/24/2023, Additional history exists CKD PHOS USE SMARTSET 57520 07/24/2024 07/24/2023 Depression Screening 08/04/2024 08/04/2023 DTaP,Tdap,and [...] filedocumented as of this encounter Care Teams Baggage Inspector Relationship Specialty Start Date End Date Sakina Lares DO [address] [place] [address] PCP - General Family Medicine 04/07/22 documented as of this encounter
--- OUTSIDE RECORDS SUMMARY | 2024-04-05 14:44 | External Medical Summary | Summary of Care ---
Author Name Unknown Organization [facility] Address [address] [place] [address] Phone [phone] Care Team Providers Care Knockdown Worker Name Role Phone NataliSakina fritz Primary Care Provider + [phone] Encounter Details Date Type Department Care Team [...] Active Additional Information Patient taking differently:0.4 mg [id number], Reported on 07/08/2023 Sertraline HCl 50 MG [...] PM EDT Office Visit Orthopaedics [facility] [address] [place] [address] Carlito Mackay PA-C [address] [place] [address] 10/28/2023 9:20 AM EDT Office Visit Family Practice [address] [place] [address] 293 [facility] [place] [address] Sakina Lares DO 293 [place] [address] 10/29/2023 2:00 PM EDT Office Visit Cardiology, [facility] [place] [address] Virgil Mixon PA-C [address] [place] [address] 11/02/2023 10:00 AM EDT Office Visit Orthopaedics [facility] 132 [facility] [place] [address] Alfreda Carrero MD [address] [place] [address] 11/09/2023 10:30 AM EDT Office Visit Orthopaedics [facility] [address] [facility] [place] [address] Alfreda Carrero MD [address] [place] [address] 11/16/2023 11:30 AM EDT Office Visit Orthopaedics [facility] [address] [facility] [place] [address] Alfreda Carrero MD 132 [facility] [place] [address] 11/25/2023 9:45 AM EDT Office Visit Orthopaedics [facility] 16 [place] [address] Chuy Arteaga MD 16 [place], [place] [address] 12/17/2023 11:20 AM EDT Office Visit Dermat[address] [address] Ping Wilson PA-C [address] [place] [address] [place] [address] 04/06/2024 8:00 AM EDT Office Visit Urology, [facility] 132 [place] [address] Se Alatorre MD [address] [address] 08/05/2024 10:00 AM EST Nurse Only Ancillary 65 [facility] 293 [place] [address] College, Nurse Annual Wellness Visit [address] [address] Health Maintenance Due Date Last Done Comments Hepatitis C Screening 1966 Cologuard 1993 Fecal Occult Blood Test 1993 Sigmoidoscopy 1993 Hepatitis B (3 of 3 - 19+ 3-dose series) 03/09/2008 01/05/2008, 09/09/2007 GFR 01/22/2024 07/24/2023, 0807/2022, 02/25/2023, Additional history exists Albumin/Creatinine Ratio 07/08/2024 07/08/2023 CKD HGB USE SMARTSET 94456 07/24/202407/24, 03/24/2023, 03/24/2023, Additional history exists CKD PHOS USE SMARTSET 68707 07/24/2024 07/24/2023 Depression Screening 08/04/2024 08/04/2023 DTaP,Tdap,and [...] filedocumented as of this encounter Care Teams Knockdown Worker Relationship Specialty Start Date End Date Sakina Lares DO [address] [place] [address] PCP - General Family Medicine 04/07/22 documented as of this encounter
--- OUTSIDE RECORDS SUMMARY | 2024-04-05 14:44 | External Medical Summary | Summary of Care ---
Author Name Unknown Organization [facility] Address [address] [place] [address] Phone [phone] Care Team Providers Care Electrician Maintenance Name Role Phone NataliSakina fritz Primary Care Provider + [phone] Encounter Details Date Type Department Care Team [...] Active Additional Information Patient taking differently:0.4 mg [id number], Reported on 07/08/2023 Sertraline HCl 50 MG [...] Smokeless Tobacco: Never Comments:Mother smoked in [facility] growing up Alcohol Use Standard [...] 10/21/2023 3:00 PM EDT Office Visit Orthopaedics [facility] [address] [place] [address] Carlito Mackay PA-C [address] [place] [address] 10/28/2023 9:20 AM EDT Office Visit Family Practice [address] [place] [address] 293 [facility] [place] [address] Sakina Lares DO 293 [place] [address] 10/29/2023 2:00 PM EDT Office Visit Cardiology, [facility] [place] [address] Virgil Mixon PA-C [address] [place] [address] 11/02/2023 10:00 AM EDT Office Visit Orthopaedics [facility] 132 [facility] [place] [address] Alfreda Carrero MD [address] [place] [address] 11/09/2023 10:30 AM EDT Office Visit Orthopaedics [facility] [place] [address] Alfreda Carrero MD [address] [place] [address] 11/16/2023 11:30 AM EDT Office Visit Orthopaedics [facility] [place] [address] Alfreda Carrero MD 132 [facility] [place] [address] 11/25/2023 9:45 AM EDT Office Visit Orthopaedics [facility] 16 [place] [address] Chuy Arteaga MD 16 [place], [place] [address] 12/17/2023 11:20 AM EDT Office Visit Dermatology[address] [address] Ping Wilson PA-C [address] [place] [address] [place] [address] 04/06/2024 8:00 AM EDT Office Visit Urology, [facility] 132 [facility] [place] [address] Se Alatorre MD [address] [address] 08/05/2024 10:00 AM EST Nurse Only Ancillary 65 [facility] 293 [place] [address] College, Nurse Annual Wellness Visit [address] [address] Health Maintenance Due Date Last Done Comments Hepatitis C Screening 1966 Cologuard 1993 Fecal Occult Blood Test 1993 Sigmoidoscopy 1993 Hepatitis B (3 of 3 - 19+ 3-dose series) 03/09/2008 01/05/2008, 09/09/2007 GFR 01/22/2024 07/24/2023, 0807/2022, 02/25/2023, Additional history exists Albumin/Creatinine Ratio 07/08/2024 07/08/2023 CKD HGB USE SMARTSET 71733 07/24/202407/24, 03/24/2023, 03/24/2023, Additional history exists CKD PHOS USE SMARTSET 07741 07/24/2024 07/24/2023 Depression Screening 08/04/2024 08/04/2023 DTaP,Tdap,and [...] filedocumented as of this encounter Care Teams Electrician Maintenance Relationship Specialty Start Date End Date Sakina Lares DO [address] [place] [address] PCP - General Family Medicine 04/07/22 documented as of this encounter
--- NOTE | 2024-04-05 14:49 | History & Physical Report ---
Date of Service April 05, 2024 Assessment & Plan (1) S/P cardiac catheterization: (2) Coronary artery calcification seen on CT scan: Plan: This is a 73-year-old male with PMH of CAD, dyslipidemia, history of SVT, GERD, BPH, CKD 3, insomnia and other medical problems listed below who presented today for diagnostic catheterization after abnormal stress test earlier this month. Diagnostic cath this AM showing severe LAD disease, status post PCI with OPAL x 2 from the ostial to mid LAD by Dr. Corbett The patient follows with Dr. Monroe for cardiology care Loaded with plavix, continue aspirin 81mg, plavix, statin Echo tomorrow, cardiology consulted (3) CKD (chronic kidney disease), stage III: Plan: Baseline Cr 1.4 BMP in AM (4) GERD (gastroesophageal reflux disease): Plan: Continue Protonix (5) BPH (benign prostatic hyperplasia): Plan: Continue Flomax (6) Mood disorder: Plan: Continue sertraline (7) Insomnia: Plan: Continue Melatonin, hydroxyzine PRN Code status: FULL PCP: Luda Dispo: Observation PCU Patient seen in collaboration with Dr. Gruber. Please see addendum. I spent a total of 75 minutes coordinating, documenting, and providing care for this patient excluding time spent in the performance of separately billed services. History of Present Illness Chief Complaint: cath s/p PCI Primary Care Provider: ANDRA PCP This is a 73-year-old male with PMH of CAD, dyslipidemia, history of SVT, GERD, BPH, CKD 3, insomnia and other medical problems listed below who presented today for diagnostic catheterization after abnormal stress test earlier this month. Was found to have severe LAD disease status post 2 stents from the ostial to mid LAD by Dr. Corbett. The patient follows with Dr. Monroe for cardiology care. Was seen and evaluated on the floor status post catheterization. In 459 bed 2. Feeling well postprocedure. Denies any chest pain or shortness of breath. Tolerated diet, no nausea or vomiting. No dysuria, diarrhea or constipation. Follows with Dr. Lares for primary care. Non-smoker, has one drink nightly. Allergies Allergy/AdvReac Type Severity Reaction Status Date / Time No Known Allergies Allergy Unverified 04/05/24 08:38 Home Medications Medication Instructions Recorded Confirmed Type aspirin 81 mg capsule 81 mg PO DAILY 04/05/24 04/05/24 History diphenhydramine 25 1 tab PO HS PRN Insomnia 04/05/24 04/05/24 History mg-acetaminophen 500 mg tablet (Tylenol PM Extra Strength) ezetimibe 10 mg tablet 10 mg PO HS 04/05/24 04/05/24 History hydroxyzine HCl 50 mg tablet 50 mg PO HS PRN Insomnia 04/05/24 04/05/24 History melatonin 5 mg tablet 5 mg PO HS 04/05/24 04/05/24 History omeprazole 20 mg capsule,delayed 20 mg PO DAILY 04/05/24 04/05/24 History release rosuvastatin 40 mg tablet 40 mg PO DAILY 04/05/24 04/05/24 History sertraline 50 mg tablet 50 mg PO DAILY 04/05/24 04/05/24 History tamsulosin 0.4 mg capsule 0.4 mg PO DAILY 04/05/24 04/05/24 History Past Med/Surg History Problem List S/P cardiac catheterization Medical History (Updated 04/05/24 @ 17:50 by Arti Cruz PA-C) Mood disorder Insomnia CKD (chronic kidney disease), stage III BPH (benign prostatic hyperplasia) GERD (gastroesophageal reflux disease) SVT (supraventricular tachycardia) Coronary artery calcification seen on CT scan Dyslipidemia Surgical History H/O hernia repair Family History Other Cancer Parkinsonism Social History Smoking Status: Never smoker Hx Alcohol Use: Yes Alcohol type: beer Hx Substance Use: No Preferred Language: Thai Water Pollution Control Technician Required: No Beliefs That Will Affect Care: None Current Living Situation: Spouse Feels Safe at Home: Yes Safety Concerns: Feels Safe At This Time Assistive Devices: None Review of Systems Review of Systems: At least ten systems reviewed and negative except as noted in the HPI. Physical Exam Physical Exam: General Appearance: WD/WN, vitals as above, NAD, sitting up in bed, pleasant, conversing easily Head: normocephalic, atraumatic Eyes: normal inspection, PERRL, conjunctivae normal, anicteric sclerae ENT: external ear and nose normal, oropharynx normal Neck: normal visual inspection, trachea midline, no thyromegaly Respiratory: normal respiratory effort, lungs clear to auscultation. No accessory muscle use Cardiovascular: regular rate, rhythm, normal peripheral pulses, no BLE edema. Vessels: no JVD, + RUE and groin access sites c/d/i Chest: normal inspection of chest Abdomen/GI: normal bowel sounds, soft, nontender, no hepatosplenomegaly Extremities/Musculoskeletal: no cyanosis or clubbing, extremities motor strength 5/5 Neurologic: PERRL, EOMI, accommodation nl, no face palsy, no dysarthria, CN's II-XI intact bilaterally and moves all extremities Psychiatric: A+Ox3, euthymic affect Skin: no rashes, normal color, warm/dry Results & Data Results & Data Vital Signs (Past 12 Hours) Vital Signs Pulse Resp BP Pulse Ox O2 Del Method 04/05/24 14:30 63 14 157/87 H 95 Room Air 04/05/24 14:15 66 14 130/88 95 Room Air 04/05/24 14:00 61 14 134/83 95 Room Air 04/05/24 13:50 61 14 145/88 H 95 Room Air 04/05/24 08:29 76 18 179/88 H 95 Room Air Code Status & VTE Plan VTE Prophylaxis Plan VTE Prophylaxis will be ordered: Yes Supervising Physician Co-Signing Physician Notes Pt was seen and examined by myself, Francesca Gruber MD on the day of service. Care was coordinated with Arti Cruz PA-C. 73yoM who presented for scheduled cath, requiring stent placement. Was resting comfortably, states having left femoral discomfort though he notes access was obtained on the right No chest pain or SOB at the time of exam RRR, breath sounds clear bilaterally. Telemetry monitoring overnight Continue with medications including DAPT, statin Cardiology recs appreciated Otherwise as above. I spent a total [id number] coordinating, documenting, and providing care for this patient excluding time spent in the performance of separately billed services
[2024-04-05] MEDS: SODIUM CHLORIDE 0.9% 1,000 ML IV SCH (15:28)
[2024-04-05] MEDS: hydrOXYzine HCl 25 MG TAB PO PRN (20:23)
[2024-04-05] MEDS: MELATONIN 3 MG TAB PO SCH (20:25)
--- NOTE | 2024-04-05 21:01 | Electrocardiogram Report ---
Test Reason : Blood Pressure : */* mmHG Vent. Rate : 67 BPM Atrial Rate : 67 BPM P-R Int : 152 ms QRS Dur : 98 ms QT Int : 424 ms P-R-T Axes : 48 1 27 degrees QTcB Int : 448 ms Normal sinus rhythm Normal ECG No previous ECGs available Confirmed by Piter Kyle ([id number]) on 04/05/2024 9:01:00 PM Referred By: Virgil Mixon Confirmed By: Piter Kyle
[2024-04-05] MEDS ORDERED: diphenhydrAMINE Capsule 25 MG CAP PO PRN (21:57)
--- NOTE | 2024-04-05 23:37 | Cardiac Catheterization ---
[facility] Data: Maintenance Supervisor Mechanical Cardiac Status Clinical evaluation leading to the procedure CAD Presenation: Positive Stress Test Diagnostic Physicians Name: Dean Corbett MD Closure Device Recommendations: PCI without planned CABG Cardiac Cath Procedure Full Procedure Date April 05, 2024 Pre-Procedure Diagnosis Pre-Procedure Diagnosis: Angina and Positive Stress Test AUC Score AUC Score: 7 Post-Procedure Diagnosis Post-Procedure Diagnosis: Severe CAD and Successful PCI Procedure(s) Performed Procedure(s) Performed: Coronary Angiography, Drug Eluting Stent and Procedure (Intravascular lithotripsy) Agricultural Sciences Professor Dean Corbett MD Pigment Presser(s) Alondra RT Estimated Blood Loss Estimated Blood Loss: 20 Medication(s) Medication(s): Clopidogrel, Fentanyl, Lidocaine 1%, Nicardipine, Nitroglycerin and Versed Summary of Findings Indication: Abnormal stress test, angina Access: 6 Fr right CONSERVATION SPECIALIST Catheters: EBU 3.5 guide Findings: For full details of patient's coronary angiography please see cath report dictated by Dr. Monroe. Briefly, patient found to have severe calcified proximal to mid LAD with multiple sequential lesions up to 90%. Decision to proceed with PCI. -- PCI -- Antithrombotic therapy: Heparin, clopidogrel Procedure: Left main cannulated with EBU 3.5 guide Pre-procedure flow CHIARA 3 [place] blue wire passed across lesion into distal vessel [place] IVUS catheter placed to proximal LAD. Pullback revealed severe calcified proximal disease. Minimal ostial disease. Eccentric calcified plaque in mid left main with stenosis less than 30%. Mid to proximal LAD lesions predilated with 2.5 compliant balloon LAD further dilated with intravascular lithotripsy (shockwave 3.0 balloon, 80 pulses) Mid LAD stented with 3.0 x 38 mm [place] OPAL Ostial/proximal LAD stented with 3.0 x 15 mm [place] OPAL overlapping proximal aspect of initial stent Stent post-dilated with 3.5 noncompliant balloon Repeat IVUS showed well-expanded, well apposed stents extending back to LAD ostium IC vasodilators administered for spasm Post procedure CHIARA 3 flow, stents well expanded with minimal residual stenosis and no apparent cardiac complications. Arterial Closure: Angio-Seal Summary: 1. Successful PCI of ostial to mid LAD with intravascular lithotripsy and 2 overlapping drug-eluting stents (3.0 x 15, 3.0 x 38 mm [place]; postdilated with 3.5 NC). Recommendations: To PCU for continued monitoring Loaded with clopidogrel 600 mg in Maintenance Supervisor Mechanical Continue dual-antiplatelet therapy for at least 1 year Continue statin, and ASCVD risk factor modification Consult cardiac Rehab Hemodynamics Rest Ao:: -- Final Ao: 125/68/87 LV: -- Recommendations Recommendations: PCI without planned CABG Specimens Specimens: None Radiation Exposure (mGy) 1961 Contrast (mls) 70 Drains Drains: N/A Anesthesia Moderate sedation. Start 1251 and 1346. Sedation monitor: Ashley PICKERING Procedural Complication(s) None Disposition PCU I attest to the content of the Intraoperative Record and any orders documented therein. Any exceptions are noted below. [facility] Card Cath Procedure Codes Therapeutic Services & Ancillary Procedure 1: Cardiovascular Tx and Anc Procedures: 99141 IV Ultrasound (Coronary or Graft) Moderate Sedation Procedure 1: Sedation/Anesthesia: 61848 Mod Sedation by the same physician; Ea [id number] Minutes Stenting Procedure 1: Cardiovascular Stent Procedures: 76230 Perc transcatheter placement of intracoronary stent(s), with ang PG Care Time/CCT Total # of Minutes Spent Total Time Spent with Patient: Total time spent is greater than 50% in coordination of care (as documented) at patient's floor/unit and/or counseling patient:
[2024-04-05] MEDS ORDERED: ACETAMINOPHEN 500 MG TAB PO PRN (23:45)
[2024-04-06 06:23] LABS: Basophils # (auto) 0.05 K/uL (0.00-0.20); Basophils % (auto) 0.7 %; Eosinophils # (auto) 0.17 K/uL (0.00-0.50); Eosinophils % (auto) 2.5 %; Hematocrit (blood only) 37.8 % (42.0-52.0); Hemoglobin 12.3 g/dl (14.0-18.0); Immature Granulocytes # (auto) 0.02 K/uL (0.01-0.20); Immature Granulocytes % (auto) 0.3 %; Lymphocytes # (auto) 0.94 K/uL (1.20-3.40); Lymphocytes % (auto) 13.8 %; Mean Corpuscular Hemoglobin 28.3 pg (25.0-34.0); Mean Corpuscular Hgb Conc 32.5 g/dL (32.0-36.0); Mean Corpuscular Volume 87.1 fL (80.0-100.0); Mean Platelet Volume 10.9 fL (9.4-12.4); Monocytes # (auto) 0.55 K/uL (0.11-0.59); Monocytes % (auto) 8.1 %; Neutrophils # (auto) 5.06 K/uL (1.40-6.50); Neutrophils % (auto) 74.6 %; Platelet Count 160 K/uL (130-400); RDW Coefficient of Variation 13.9 % (11.5-14.5); RDW Standard Deviation 44.5 fL (36.4-46.3); Red Blood Count 4.34 M/uL (4.70-6.10); White Blood Count 6.79 K/ul (4.8-10.8)
[2024-04-06 06:40] LABS: Calcium 8.7 mg/dl (8.6-10.3); Creatinine Clr Calc Pharmacy 55.4 ml/min; Est GFR (African American) 68.8 ml/min; Est GFR (Non-African American) 59.4 ml/min; Potassium 4.2 mmol/L (3.5-5.1)
[2024-04-06] MEDS: ASPIRIN 81 MG ECTAB PO SCH (08:34)
[2024-04-06] MEDS: EZETIMIBE 10 MG TAB PO SCH (08:34)
[2024-04-06] MEDS: TAMSULOSIN HCL 0.4 MG CAP PO SCH (08:34)
[2024-04-06] MEDS: SERTRALINE HCL 50 MG TABLET PO SCH (08:34)
[2024-04-06] MEDS: PANTOprazole 40 MG TAB PO SCH (08:34)
[2024-04-06] MEDS: ROSUVASTATIN CALCIUM 20 MG TAB PO SCH (08:34)
[2024-04-06] MEDS: CLOPIDOGREL BISULFATE 75 MG TAB PO SCH (08:34)
[2024-04-06 10:44] VITALS: BP 132/81; RESP 17; TEMP 98.1; O2SAT 94
--- NOTE | 2024-04-06 13:28 | Cardiology Progress Note ---
Date of Service April 06, 2024 Assessment & Plan (1) Status post insertion of drug-eluting stent into left anterior descending (LAD) artery: (2) Angina of effort: (3) Dyslipidemia, goal LDL below 70: Plan Results of cardiac catheterization and percutaneous intervention reviewed at length. Importance of continuing dual antiplatelet therapy for minimum of 6 months post percutaneous intervention discussed. Postprocedural activity restrictions noted below. Cardiology follow-up as scheduled 04/29/2024. Patient may be discharged from a cardiovascular perspective. ACTIVITY RECOMMENDATIONS: It is common to feel weak and fatigue for a few days. * Do not drive or operate any motorized equipment for the next three days. * Limit stair usage (2 or 3 trips a day only) for the next three days. * Do not lift anything heavier than 10 pounds for the next three days. * Do not engage in vigorous exercise or any sports for the next five days. * You may shower the day after your procedure, but do not immerse the area for three days. Cleanse the site gently with soap and water. SPECIAL CARE INSTRUCTIONS: * You may replace the pressure dressing or band-aid the morning after the procedure. * After your procedure, it is normal to have a small bruise or small lump at the site. Examine your site daily for any change in the bruise or lump, redness, swelling, drainage or numbness. Notify your doctor if any change. BLEEDING: * If there is a small amount of bleeding at the site, lie down and apply firm pressure with a clean cloth for ten minutes. When the bleeding stops, lie quietly keeping the procedure limb straight for six hours. Notify your doctor as soon as possible. * If the bleeding does not stop after ten minutes or if there is a large amount of bleeding or spurting, call 911 immediately. Continue to lie down and hold firm pressure until help arrives. SKIN IRRITATION: * You may experience some redness and/or swelling in the area where radiation was administered. If any skin irritation occurs, please contact your family physician. Admission and Anticipated Discharge Date Admission Date: April 05, 2024 Subjective 73-year-old male seen and examined at the bedside. Cardiac catheterization performed 04/05/2024 demonstrating severe LAD stenosis status post implantation of 2 drug-eluting stents. Patient feeling better this a.m. Mild right groin soreness without hematoma. Denies any chest discomfort or unusual shortness of breath. Tolerating medications noted below. Review of Systems Review of Systems: All systems reviewed & are unremarkable except as noted in Subjective Physical Exam Respiratory: normal respiratory effort; no respiratory distress Auscultation: + crackles; no rhonchi and no wheezes Cardiovascular: Rate/Rhythm: regular rate and regular rhythm Heart Sounds: normal S1 and normal S2; no murmur Vessels: femoral pulses present and radial pulses present; no JVD and no carotid bruit Extremities: no edema Gastrointestinal (Abdomen): Inspection/Auscultation: abdomen normal to inspection and normal bowel sounds; abdomen not distended Percussion/Palpation: abdomen soft; abdomen nontender, no guarding and abdomen not rigid Neurologic: CN's II-XI intact bilaterally and moves all extremities; no focal motor deficits Results & Data Vital Signs (Past 12 Hours) Vital Signs Temp Pulse Pulse Resp BP Pulse Ox O2 Del Method 04/06/24 10:41 36.7 C 66 17 132/81 94 Room Air 04/06/24 10:10 36.8 C 85 19 146/81 H 95 04/06/24 07:35 36.8 C 85 19 146/81 H 95 Room Air 04/06/24 06:53 57 L 04/06/24 03:33 36.7 C 90 18 138/81 94 Room Air Laboratory Results CBC 04/06/24 Range/Units 05:48 WBC 6.79 (4.8-10.8) K/ul RBC 4.34 L (4.70-6.10) M/uL Hgb 12.3 L (14.0-18.0) g/dl Hct 37.8 L (42.0-52.0) % Plt Count 160 (130-400) K/uL Neut # (Auto) 5.06 (1.40-6.50) K/uL Lymph # (Auto) 0.94 L (1.20-3.40) K/uL [place] # (Auto) 0.55 (0.11-0.59) K/uL Eos # (Auto) 0.17 (0.00-0.50) K/uL Baso # (Auto) 0.05 (0.00-0.20) K/uL Comprehensive Metabolic Panel 04/06/24 Range/Units 05:48 Sodium 138 (136-145) mmol/L Potassium 4.2 (3.5-5.1) mmol/L Chloride 105 (98-107) mmol/L Carbon Dioxide 29 (21-32) mmol/L BUN 19 (6-23) mg/dl Creatinine 1.19 (0.6-1.4) mg/dl Glucose 87 (70-99(Fasting)) mg/dl Calcium 8.7 (8.6-10.3) mg/dl Intake and Output 04/05/24 04/06/24 04/06/24 22:59 06:59 14:59 Intake Total 1070 / 1070 360 / 360 Output Total 850 / 1250 400 / 1250 200 / 200 Balance 220 / -180 -400 / -180 160 / 160 Intake: IV 510 / 510 Sodium Chloride 0.9% 1,000 ml @ 510 / 510 100 mls/hr IV .Q10H ON LICENSE OF [facility] Rx#: [id number] Oral 560 / 560 360 / 360 Output: Urine 850 / 1250 400 / 1250 200 / 200 Other: # Unmeasured Voids 3 Weight 78.925 kg Weight Measurement Method Stated by Patient Patient Weight 04/07/24 06:59 Weight 78.925 kg
--- NOTE | 2024-04-06 13:42 | Discharge Summary ---
Discharge Summary Date of Service April 06, 2024 Principal Dx & Hospital Course #1 = Principal Diagnosis (1) S/P cardiac catheterization: (2) Coronary artery calcification seen on CT scan: (3) CKD (chronic kidney disease), stage III: (4) GERD (gastroesophageal reflux disease): (5) BPH (benign prostatic hyperplasia): (6) Mood disorder: (7) Insomnia: Plan Mr. Love is a 73-year-old male with PMH of CAD, dyslipidemia, history of SVT, GERD, BPH, CKD 3, insomnia and other medical problems listed below who presented today for diagnostic catheterization after abnormal stress test earlier this month. Patient underwent LHC on 04/05 which revealed severe LAD disease, status post PCI with OPAL x 2 from the ostial to mid LAD by Dr. Corbett The patient follows with Dr. Monroe for cardiology care . Patient loaded with plavix and to continue on DAPT for atleast 1 year. Notes For Next Care Provider Successful PCI of ostial to mid LAD with intravascular lithotripsy and 2 overlapping drug-eluting stents (3.0 x 15, 3.0 x 38 mm [place]; postdilated with 3.5 NC). Medication Changes From Visit Plavix 75 mg daily Admission HPI Per Admitting Provider This is a 73-year-old male with PMH of CAD, dyslipidemia, history of SVT, GERD, BPH, CKD 3, insomnia and other medical problems listed below who presented today for diagnostic catheterization after abnormal stress test earlier this month. Was found to have severe LAD disease status post 2 stents from the ostial to mid LAD by Dr. Corbett. The patient follows with Dr. Monroe for cardiology care. Was seen and evaluated on the floor status post catheterization. In 459 bed 2. Feeling well postprocedure. Denies any chest pain or shortness of breath. Tolerated diet, no nausea or vomiting. No dysuria, diarrhea or constipation. Follows with Dr. Lares for primary care. Non-smoker, has one drink nightly. Admission Exam Per Admitting Provider General Appearance: WD/WN, vitals as above, NAD, sitting up in bed, pleasant, conversing easily Head: normocephalic, atraumatic Eyes: normal inspection, PERRL, conjunctivae normal, anicteric sclerae ENT: external ear and nose normal, oropharynx normal Neck: normal visual inspection, trachea midline, no thyromegaly Respiratory: normal respiratory effort, lungs clear to auscultation. No accessory muscle use Cardiovascular: regular rate, rhythm, normal peripheral pulses, no BLE edema. Vessels: no JVD, + RUE and groin access sites c/d/i Chest: normal inspection of chest Abdomen/GI: normal bowel sounds, soft, nontender, no hepatosplenomegaly Extremities/Musculoskeletal: no cyanosis or clubbing, extremities motor strength 5/5 Neurologic: PERRL, EOMI, accommodation nl, no face palsy, no dysarthria, CN's II-XI intact bilaterally and moves all extremities Psychiatric: A+Ox3, euthymic affect Skin: no rashes, normal color, warm/dry Discharge Exam Constitutional WD/WN, vitals as above Respiratory normal respiratory effort, lungs clear to auscultation Cardiovascular RRR, no murmur, no edema Gastrointestinal (Abdomen) normal bowel sounds, soft, nontender, no hepatosplenomegaly Updated Medication List Medication Instructions Recorded Confirmed Type aspirin 81 mg capsule 81 mg PO DAILY 04/05/24 04/05/24 History diphenhydramine 25 1 tab PO HS PRN Insomnia 04/05/24 04/05/24 History mg-acetaminophen 500 mg tablet (Tylenol PM Extra Strength) ezetimibe 10 mg tablet 10 mg PO HS 04/05/24 04/05/24 History hydroxyzine HCl 50 mg tablet 50 mg PO HS PRN Insomnia 04/05/24 04/05/24 History melatonin 5 mg tablet 5 mg PO HS 04/05/24 04/05/24 History omeprazole 20 mg capsule,delayed 20 mg PO DAILY 04/05/24 04/05/24 History release rosuvastatin 40 mg tablet 40 mg PO DAILY 04/05/24 04/05/24 History sertraline 50 mg tablet 50 mg PO DAILY 04/05/24 04/05/24 History tamsulosin 0.4 mg capsule 0.4 mg PO DAILY 04/05/24 04/05/24 History clopidogrel 75 mg tablet 75 mg PO QAM #30 tabs 04/06/24 Rx Hospital Stay Data Consultations 04/05/24 18:05 Consult Cardiology Routine Procedures Performed Operation Date: 04/05/24 09:30 Actual Procedures s Cineradiography w/Routine Exam - Dean Corbett MD s IVUS Coronary Single Vessel - Dean Corbett MD p Drug Eluting Stent SGl Vessel - Dean Corbett MD p Cath, Right and Left Heart - Nolberto Monroe, DO Diagnostic Imagining Performed 04/05/24 06:20 CL Cath Imgs for PACS use only Routine 04/05/24 14:30 CL IVUS Coronary Single Vessel Routine Pending Results Patient Have Any Pending Studies at Discharge: No Discharge Instructions Given to Patient (Per Discharging Provider) You were admitted for left heart catheterization after abnormal stress test. Your catheterization revealed severe disease and two stents where placed. You must continue aspirin 81 mg and plavix 75mg daily for at least 1 year. Please continue your rosuvastatin 40mg daily Total Time Total Time Spent Total Time Spent (In Minutes): 35
[2024-04-06 15:52] VITALS: PULSE 73
== END 2024-04-06 16:25 | disposition home or self-care (01) ==
LOC: CC 08:23 → 4W 08:23 → SUATTDRO 14:12